=== PATIENT | female | born 1945 | race Caucasian/White ===

== ENCOUNTER 2019-09-18 08:15 | Outpatient (CLI) | payer OTHER, SELFPAY ==
--- NOTE | ~2019-09-18 | MM_ITS ---
EXAMINATION: MM screening sharon BI w stanton HISTORY: Screening mammogram, family history of breast cancer in her mother. TECHNIQUE: Craniocaudal and mediolateral oblique 3-D tomosynthesis images were obtained and synthetic 2-D images were generated. CAD analysis was submitted and interpreted. COMPARISON: 09/13/2018, 09/10/2017, 09/08/2016 BREAST PARENCHYMAL COMPOSITION: The breasts are almost entirely fatty. FINDINGS: Again seen is a stable 3 mm mass in the central left breast. There is no evidence of suspic ious mass, calcification, or architectural distortion to suggest malignancy in either breast. There h as been no suspicious interval change. IMPRESSION: 1. No mammographic evidence of malignancy. 2. Recommend routine screening mammography in one year. BI-RADS Category 2: Benign finding(s). Reviewed, dictated and finalized at location A.
== END 2019-09-18 08:16 | disposition home or self-care (01) ==
PROVIDERS: PCP Family Medicine; Visit Provider Obstetrics & Gynecology
DX: Z12.31 Encounter for screening mammogram for malignant neoplasm of breast (principal)
CPT/HCPCS: 77063; 77067

== ENCOUNTER 2019-09-28 15:27 | Emergency (ER) | payer OTHER, SELFPAY ==
[2019-09-28 15:43] VITALS: BP 147/72; PULSE 87; RESP 16; TEMP 37.2; O2SAT 99
--- NOTE | 2019-09-28 15:52 | ED.GENADULT ---
HPI - General Adult General Chief complaint: Ear Stated complaint: ear pain Time Seen by Provider: 09/28/19 15:52 Source: patient and RN notes reviewed Mode of arrival: ambulatory Limitations: no limitations History of Present Illness HPI narrative: 74-year-old female presents with complaints of left intermittent otalgia for the past 5 days. Lizett says she was seen by the COUNSELING CENTER DIRECTOR at her PMD office and started on Flonase with no relief. Tylenol last 1 day ago with some relief. Pain increased over the last 24 hours. Denies getting water into ear to her knowledge. Denies trouble hearing. Denies injury to ear. Denies URI symptoms. No high fevers or chills. No nasal drainage and congestion. Denies nausea, vomiting, tinnitus, and dizziness. Denies headaches, weakness, fatigue, myalgia, or facial swelling. Denies chest pain or dyspnea. Denies cough, rhinorrhea, sore throat, nausea, and diarrhea. Tolerating po intake well. Denies recent traveling. Denies concerns for COVID-19 or exposures been home since [id number] order except for essential household needs and return home. Some parts of this dictation were generated by voice recognition software and may contain typographical and/or grammatical inaccuracies. Related Data Home Medications Medication Instructions Recorded Confirmed alendronate PO 09/28/19 celecoxib mg 09/28/19 docusate sodium PO 09/28/19 fluticasone propionate INTRANASAL 09/28/19 gabapentin 09/28/19 losartan 09/28/19 metformin mg 09/28/19 montelukast mg 09/28/19 pantoprazole PO 09/28/19 raloxifene mg 09/28/19 simvastatin mg 09/28/19 Allergies Allergy/AdvReac Type Severity Reaction Status Date / Time STEVEN Inhibitors Allergy Intermediate UNKNOWN Verified 05/16/19 09:26 lisinopril Allergy Unknown UNKNOWN Verified 05/16/19 09:26 Review of Systems Review of Systems: Narrative: CONSTITUTIONAL: Denies fever, chills, sweats. EYES: Denies visual changes, redness, discharge. ENT: Denies rhinorrhea, congestion, sore throat, ear drainage or itching. Complains of LT otalgia. CARDIOVASCULAR: Denies chest pain, palpitations, edema. RESPIRATORY: Denies dyspnea, wheezing, cough. GASTROINTESTINAL: Denies abdominal pain, nausea, vomiting, diarrhea. GENITOURINARY: Denies dysuria, hematuria, abnormal discharge. SKIN: Denies rash or itching. MUSCULOSKELETAL: Denies acute back pain, joint pain, or myalgia. NEUROLOGIC: Denies numbness or focal weakness. PSYCHIATRIC: Denies anxiety or depression. All systems reviewed & are unremarkable except as noted in HPI and below. [facility] Past Medical History Medical History (Updated 09/29/19 @ 00:00 by Jazzy Caba) Ankle fracture, right Carpal tunnel syndrome Diabetes Ganglion History of gastroesophageal reflux (GERD) Hypercholesteremia Hypertension Osteoporosis Surgical History Surgical History (Updated 09/28/19 @ 16:07 by ALEXANDRE Gamez) History of carpal tunnel surgery Right wrist History of hip surgery Left History of surgical removal of ganglion cyst Right thumb and Left wrist Family History Family History Father Family history of Parkinson's disease Diabetes mellitus, Onset Age: 92 Mother Family history of Alzheimer's disease Family history of malignant neoplasm of breast in first degree relative Patient's mother is Other Family history of arthritis Family history of gout Social History Social History (Updated 09/28/19 @ 16:07 by ALEXANDRE Gamez) Smoking status: Current every day smoker Tobacco type: cigarettes Second hand tobacco smoke exposure: No Smoking end date: 05/28/18 Alcohol intake: current Alcohol use details: occasional Substance use: never Living arrangements: with family Occupation/Education: retired Gender identity (if verbalized by the patient): Female Comments At time of signature, I have revi
== END 2019-09-28 16:15 | disposition home or self-care (01) ==
PROVIDERS: Emergency Provider Nurse Practitioner Family; PCP Family Medicine
DX: H92.02 Otalgia, left ear (principal); E11.9 Type 2 diabetes mellitus without complications; K21.9 Gastro-esophageal reflux disease without esophagitis; E78.00 Pure hypercholesterolemia, unspecified; I10 Essential (primary) hypertension; M81.0 Age-related osteoporosis without current pathological fracture; F17.210 Nicotine dependence, cigarettes, uncomplicated; Z79.84 Long term (current) use of oral hypoglycemic drugs
CPT/HCPCS: 99213; G0463

== ENCOUNTER 2020-05-26 09:22 | Outpatient (CLI) | payer OTHER, SELFPAY ==
--- NOTE | ~2020-05-26 | CT_ITS ---
EXAMINATION: CT abdomen pelvis wo con EXAM DATE: 05/26/2020 09:44 INDICATION: Epigastric abdominal pain, symptoms 2 weeks. TECHNIQUE: Spiral CT of the abdomen and pelvis was performed without contrast. Axial, coronal and s agittal images were reviewed. The dose-length product (DLP) for this examination was 765.86 mGy-cm. The exposure was tailored according to patient size (auto mA exposure control), and iterative recons truction (ASIR) was used as additional dose reduction technique. Comparison is made to prior examinat ion from 10/07/2016. FINDINGS: The liver, spleen, adrenal glands and pancreas are unremarkable. There are cholecystectomy clips. There is no nephrolithiasis or hydronephrosis. The uterus is unremarkable. The bladder i s unremarkable. There is no retroperitoneal or pelvic lymphadenopathy. There is mild scattered art eriosclerotic disease. The appendix is normal. The stomach and small bowel are unremarkable. There is expected amount of c olonic stool. No free intraperitoneal gas. The heart is normal in size. There are no pericardial or pleural effusions. The lung bases are unremarkable. Mild to moderate chronic appearing compress ion fracture superior endplate of L2. There is left hip arthroplasty. IMPRESSION: 1. No acute intra-abdominal findings. Reviewed, dictated and finalized at location B. 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
== END 2020-05-26 09:23 | disposition home or self-care (01) ==
PROVIDERS: PCP Family Medicine; Visit Provider Physician Assistant
DX: R10.13 Epigastric pain (principal)
CPT/HCPCS: 74176

== ENCOUNTER 2020-06-11 10:42 | Emergency (ER) | payer OTHER, SELFPAY ==
--- NOTE | 2020-06-11 10:57 | ED.FEMALEGU ---
HPI - Female Genitourinary General Chief complaint: Urogenital-Female Stated complaint: Possible UTI Time Seen by Provider: 06/11/20 11:00 Source: patient Mode of arrival: ambulatory Limitations: no limitations History of Present Illness HPI Narrative: Lizett Mixon is a 75 yo male with a PMH of GERD, HTN, seasonal allergies, T2DM, high cholesterol, osteoporosis, history of having symptoms of urinary tract infection on Sunday with pressure and the following day with dysuria and difficulty urinating she tried OTC Azo without success; unable to reach primary care doctor, is not having pain per se but annoying symptoms now for third day Discussed her list of prior medical conditions Related Data Home Medications Medication Instructions Recorded Confirmed Jose A-600 With Vitamin D 1 mg PO BID 06/11/20 06/11/20 Tumeric 06/11/20 alendronate PO 06/11/20 cyanocobalamin (vitamin B-12) 500 mcg PO DAILY 06/11/20 06/11/20 famotidine [Pepcid AC] 20 mg PO DAILY 06/11/20 06/11/20 gabapentin 300 mg PO TID 06/11/20 06/11/20 loratadine [Claritin] 10 mg PO DAILY 06/11/20 06/11/20 losartan 50 mg PO DAILY 06/11/20 06/11/20 metformin 500 mg PO DAILY 06/11/20 06/11/20 montelukast 10 mg PO DAILY 06/11/20 06/11/20 omega-3 fatty acids [Fish Oil] 1,000 mg PO BID 06/11/20 06/11/20 omeprazole 40 mg PO DAILY 06/11/20 06/11/20 raloxifene 60 mg PO DAILY 06/11/20 06/11/20 simvastatin 20 mg PO HS 06/11/20 06/11/20 vitamins A,C,X-zlxm-lmtuvs 1 cap PO DAILY 06/11/20 06/11/20 [PreserVision AREDS] Allergies Allergy/AdvReac Type Severity Reaction Status Date / Time STEVEN Inhibitors Allergy Intermediate UNKNOWN Verified 06/11/20 10:43 lisinopril Allergy Unknown UNKNOWN Verified 06/11/20 10:43 Review of Systems Review of Systems: Narrative: CONSTITUTIONAL: Denies fever, chills, sweats. EYES: Denies visual changes, redness, discharge. ENT: Denies rhinorrhea, congestion, sore throat, otalgia. CARDIOVASCULAR: Denies chest pain, palpitations, edema. RESPIRATORY: Denies dyspnea, wheezing, cough GASTROINTESTINAL: Denies abdominal pain, nausea, vomiting, diarrhea. GENITOURINARY: Has dysuria, hematuria, no abnormal discharge (took azo) SKIN: Denies rash or itching. NEUROLOGIC: Denies numbness, or focal weakness. PSYCHIATRIC: Denies anxiety or depression. [facility] Past Medical History Medical History (Updated 06/11/20 @ 11:17 by Nara Culp CNP) Ankle fracture, right Carpal tunnel syndrome Diabetes Ganglion History of gastroesophageal reflux (GERD) Hypercholesteremia Hypertension Osteoporosis Surgical History Surgical History History of carpal tunnel surgery Right wrist History of hip surgery Left History of surgical removal of ganglion cyst Right thumb and Left wrist Family History Family History Father Family history of Parkinson's disease Diabetes mellitus, Onset Age: 92 Mother Family history of Alzheimer's disease Family history of malignant neoplasm of breast in first degree relative Patient's mother is Other Family history of arthritis Family history of gout Social History Social History (Updated 06/11/20 @ 11:14 by Nara Culp CNP) Smoking packs per day: 0.25 Smoking cigarettes per day: 5.0 Smoking status: Current every day smoker Tobacco type: cigarettes Second hand tobacco smoke exposure: No Smoking end date: 05/28/18 Alcohol intake: current Substance use: never Gender identity (if verbalized by the patient): Female Comments At time of signature, I agree with nursing past medical, surgical, social and family history. There is no relevant family history pertinent to the presenting complaint. Exam Narrative: Exam Narrative: GENERAL: This is a well-nourished, well-developed patient, in mild distress. HEAD: normocephalic, atraumatic. EYES: P Sclera clear/white. [employer]
[2020-06-11 10:58] VITALS: BP 156/61; PULSE 99; RESP 18; TEMP 36.7; O2SAT 94
== END 2020-06-11 11:20 | disposition home or self-care (01) ==
PROVIDERS: Emergency Provider Nurse Practitioner; PCP Physician Assistant
DX: N30.01 Acute cystitis with hematuria (principal); F17.210 Nicotine dependence, cigarettes, uncomplicated; E11.9 Type 2 diabetes mellitus without complications; K21.9 Gastro-esophageal reflux disease without esophagitis; E78.00 Pure hypercholesterolemia, unspecified; I10 Essential (primary) hypertension; M81.0 Age-related osteoporosis without current pathological fracture
CPT/HCPCS: 81003; 87077; 87086; 87088; 87186; 99213; G0463

== ENCOUNTER 2020-09-21 09:03 | Outpatient (CLI) | payer OTHER, SELFPAY ==
--- NOTE | ~2020-09-21 | MM_ITS ---
EXAMINATION: MM screening sharon BI w stanton HISTORY: Screening mammogram TECHNIQUE: Craniocaudal and mediolateral oblique 3-D tomosynthesis images were obtained and synthetic 2-D images were generated. CAD analysis was submitted and interpreted. COMPARISON: , 09/13/2018, 09/10/2017 bilateral digital screening mammogram examinations BREAST PARENCHYMAL COMPOSITION: The breasts are almost entirely fatty. FINDINGS: Stable benign appearing circumscribed approximately 5 mm mass is noted at the posterior mar gin of the mid to upper right breast on MLO view, unchanged since 09/08/2016. There is no evidence of suspicious mass, calcification, or architectural distortion to suggest malignancy in either breast. T here has been no suspicious interval change. IMPRESSION: 1. No mammographic evidence of malignancy. 2. Recommend routine screening mammography in one year. BI-RADS Category 2: Benign finding(s). Reviewed, dictated and finalized at location A.
== END 2020-09-21 09:04 | disposition home or self-care (01) ==
LOC: ANHIMG 09:09
PROVIDERS: PCP Physician Assistant; Visit Provider Obstetrics & Gynecology
DX: Z12.31 Encounter for screening mammogram for malignant neoplasm of breast (principal)
CPT/HCPCS: 77063; 77067

== ENCOUNTER 2020-09-28 07:31 | Emergency (ER) | payer OTHER, SELFPAY ==
--- NOTE | ~2020-09-28 | XR_ITS ---
EXAMINATION: XR wrist RT min 3V INDICATION: Right wrist pain TECHNIQUE: Four views of the right wrist are obtained. COMPARISON: 08/28/2017 FINDINGS: There is moderate to severe osteoarthritis of the triscaphe and first carpometacarpal joint s. No fracture is identified. The soft tissues are unremarkable. IMPRESSION: 1. Osteoarthritis without acute osseous abnormality identified. Reviewed, dictated and finalized at location A.
[2020-09-28 07:51] VITALS: BP 152/69; PULSE 77; RESP 18; TEMP 37.1; O2SAT 96
[2020-09-28] MEDS: HYDROcodone/acetaminophen (*CRX) 5-325 MG TABLET 1 TAB PO (07:58)
--- NOTE | 2020-09-28 08:12 | ED.GENADULT ---
HPI - General Adult General Chief complaint: Extremity Problem,Nontraumatic Stated complaint: wrist inj Time Seen by Provider: 09/28/20 07:38 History of Present Illness HPI narrative: Patient is a 75-year-old female who presents ER with right wrist pain. Patient was reaching behind her back to move a ice pack when she had sudden onset pain over the radial aspect of her wrist on the volar aspect. Pain radiates into the mid forearm. No numbness or tingling. Pain increases with attempts to flex and extend at the wrist. Related Data Home Medications Medication Instructions Recorded Confirmed Jose A-600 With Vitamin D 1 mg PO BID 06/11/20 06/11/20 Tumeric 06/11/20 alendronate PO 06/11/20 cyanocobalamin (vitamin B-12) 500 mcg PO DAILY 06/11/20 06/11/20 famotidine [Pepcid AC] 20 mg PO DAILY 06/11/20 06/11/20 gabapentin 300 mg PO TID 06/11/20 06/11/20 loratadine [Claritin] 10 mg PO DAILY 06/11/20 06/11/20 losartan 50 mg PO DAILY 06/11/20 06/11/20 metformin 500 mg PO DAILY 06/11/20 06/11/20 montelukast 10 mg PO DAILY 06/11/20 06/11/20 omega-3 fatty acids [Fish Oil] 1,000 mg PO BID 06/11/20 06/11/20 omeprazole 40 mg PO DAILY 06/11/20 06/11/20 raloxifene 60 mg PO DAILY 06/11/20 06/11/20 simvastatin 20 mg PO HS 06/11/20 06/11/20 vitamins A,C,G-rvww-mqcudn 1 cap PO DAILY 06/11/20 06/11/20 [PreserVision AREDS] Allergies Allergy/AdvReac Type Severity Reaction Status Date / Time STEVEN Inhibitors Allergy Intermediate UNKNOWN Verified 09/28/20 07:54 lisinopril Allergy Unknown UNKNOWN Verified 09/28/20 07:54 Review of Systems Musculoskeletal: Musculoskeletal: Reports arthralgias, Denies joint swelling and Denies muscle cramps Integumentary/Breasts: Skin/Breast: Denies erythema and Denies rash Neurologic: Denies focal weakness and Denies numbness [facility] Past Medical History Medical History (Updated 09/28/20 @ 09:27 by Gustabo Flynn MD) Ankle fracture, right Carpal tunnel syndrome Diabetes Ganglion History of gastroesophageal reflux (GERD) Hypercholesteremia Hypertension Osteoporosis Surgical History Surgical History History of carpal tunnel surgery Right wrist History of hip surgery Left History of surgical removal of ganglion cyst Right thumb and Left wrist Family History Family History Father Family history of Parkinson's disease Diabetes mellitus, Onset Age: 92 Mother Family history of Alzheimer's disease Family history of malignant neoplasm of breast in first degree relative Patient's mother is Other Family history of arthritis Family history of gout Social History Social History (Updated 06/11/20 @ 11:14 by Nara Culp CNP) Smoking packs per day: 0.25 Smoking cigarettes per day: 5.0 Smoking status: Current every day smoker Tobacco type: cigarettes Second hand tobacco smoke exposure: No Smoking end date: 05/28/18 Alcohol intake: current Substance use: never Gender identity (if verbalized by the patient): Female Exam Narrative: Exam Narrative: GENERAL: Well-appearing, well-nourished, and in no acute distress. HEAD: Normocephalic, atraumatic. CHEST: Clear to auscultation. No respiratory distress. HEART: Regular rate and rhythm. Normal peripheral pulses. EXTREMITIES: Focused exam of the right hand and wrist reveals tenderness at the wrist and base of the thenar eminence. Slight swelling noted. No bruising or redness. Limited range of motion with flexion extension due to pain. No reproducible pain into the forearm and loss palpating the tender area at the base of the thumb. NEURO: Alert and oriented x3. PSYCH: Normal mood and affect. Course Vital Signs Vital signs: Vital Signs Temperature 98.7 F 09/28/20 07:51 Pulse Rate 77 09/28/20 07:51 Respiratory Rate 18 09/28/20 07:51 Blood Pressure 152/69 H 09/28/20 07:51 Pulse Oximet
--- NOTE | 2020-09-28 09:05 | PC.NURSE ---
R wrist splint placed, pt educated to place ice over splint prn, keep extremity mobile. ED MD at bedside to provide dispo
[2020-09-28 09:33] VITALS: BP 127/63; PULSE 77; RESP 17; O2SAT 98
== END 2020-09-28 09:36 | disposition home or self-care (01) ==
PROVIDERS: Emergency Provider Emergency Medicine; PCP Physician Assistant
DX: S63.501A Unspecified sprain of right wrist, initial encounter (principal); Z87.891 Personal history of nicotine dependence; E11.9 Type 2 diabetes mellitus without complications; Z79.84 Long term (current) use of oral hypoglycemic drugs; K21.9 Gastro-esophageal reflux disease without esophagitis; I10 Essential (primary) hypertension; E78.5 Hyperlipidemia, unspecified; X50.0XXA Overexertion from strenuous movement or load, initial encounter
CPT/HCPCS: 73110; 99283; A9270

== ENCOUNTER 2020-12-03 12:34 | Emergency (ER) | payer OTHER, SELFPAY ==
--- NOTE | 2020-12-03 12:39 | ED.SKABFB ---
HPI - Skin/Abscess/Foreign Bdy General Chief complaint: Skin/Abscess/Foreign Body Stated complaint: RASH Time Seen by Provider: 12/03/20 12:48 Source: patient and RN notes reviewed Mode of arrival: ambulatory Limitations: no limitations History of Present Illness HPI narrative: 75-year-old female presents concern for patchy rash on her left anterior shoulder. Reports 2-day history of rash. Reports she has been using triamcinolone and clobetasol cream 2 times with intermittent relief of itching. She denies any resolution of the rash with the use of the cream. She reports she has had intermittent rashes similar to this over the last several months. She denies any known triggers such as new soaps, personal care products, household products, medicines, foods. Denies exposure to plants, landscaping, poison richard. She denies swollen lips, swollen tongue, trouble breathing, nausea, vomiting, diarrhea. MD complaint: rash Related Data Home Medications Medication Instructions Recorded Confirmed Jose A-600 With Vitamin D 1 mg PO BID 06/11/20 12/03/20 Tumeric 1,000 mg PO BID 06/11/20 12/03/20 alendronate 10 mg PO WEEKLY 06/11/20 12/03/20 famotidine [Pepcid AC] 20 mg PO DAILY 06/11/20 12/03/20 gabapentin 300 mg PO TID 06/11/20 12/03/20 loratadine [Claritin] 10 mg PO DAILY 06/11/20 12/03/20 losartan 50 mg PO DAILY 06/11/20 12/03/20 metformin 250 mg PO DAILY 06/11/20 12/03/20 montelukast 10 mg PO DAILY 06/11/20 12/03/20 omega-3 fatty acids [Fish Oil] 1,000 mg PO BID 06/11/20 12/03/20 omeprazole 40 mg PO BID 06/11/20 12/03/20 raloxifene 60 mg PO DAILY 06/11/20 12/03/20 simvastatin 20 mg PO HS 06/11/20 12/03/20 vitamins A,C,Q-luhh-skrvhr 1 cap PO BID 06/11/20 12/03/20 [PreserVision AREDS] nystatin-triamcinolone 1 applic TOPICAL BID 12/03/20 12/03/20 vitamin B complex [Super B Complex] 1 tablet PO DAILY 12/03/20 12/03/20 Allergies Allergy/AdvReac Type Severity Reaction Status Date / Time STEVEN Inhibitors Allergy Intermediate Hives Verified 12/03/20 12:48 lisinopril Allergy Unknown Hives Verified 12/03/20 12:48 Review of Systems Review of Systems: Narrative: CONSTITUTIONAL: Denies malaise, chills, sweats, or fever. EYES: Denies visual changes, redness, or discharge. ENT: Denies swollen lips, swollen tongue CARDIOVASCULAR: Denies chest pain, palpitations, or edema. RESPIRATORY: Denies cough or dyspnea. GASTROINTESTINAL: Denies nausea, vomiting, diarrhea SKIN: Reports itchy rash on the left anterior shoulder MUSCULOSKELETAL: Denies myalgia. All systems reviewed & are unremarkable except as noted in HPI and below PMFSH Past Medical History Medical History (Updated 12/03/20 @ 12:57 by Sherrill Salcido NP) Ankle fracture, right Carpal tunnel syndrome Diabetes Ganglion History of gastroesophageal reflux (GERD) Hypercholesteremia Hypertension Osteoporosis Surgical History Surgical History History of carpal tunnel surgery Right wrist History of hip surgery Left History of surgical removal of ganglion cyst Right thumb and Left wrist Family History Family History Father Family history of Parkinson's disease Diabetes mellitus, Onset Age: 92 Mother Family history of Alzheimer's disease Family history of malignant neoplasm of breast in first degree relative Patient's mother is Other Family history of arthritis Family history of gout Social History Social History (Updated 06/11/20 @ 11:14 by Nara Culp CNP) Smoking packs per day: 0.25 Smoking cigarettes per day: 5.0 Smoking status: Current every day smoker Tobacco type: cigarettes Second hand tobacco smoke exposure: No Smoking end date: 05/28/18 Alcohol intake: current Alcohol use details: occasional Substance use: never Gender identity (if verbalized by the patient): Female Comments At time of signature, agree with
[2020-12-03 12:41] VITALS: BP 136/64; PULSE 82; RESP 16; TEMP 36.5; O2SAT 98
== END 2020-12-03 13:02 | disposition home or self-care (01) ==
PROVIDERS: Emergency Provider Nurse Practitioner
DX: L25.9 Unspecified contact dermatitis, unspecified cause (principal); F17.210 Nicotine dependence, cigarettes, uncomplicated; E11.9 Type 2 diabetes mellitus without complications; K21.9 Gastro-esophageal reflux disease without esophagitis; E78.00 Pure hypercholesterolemia, unspecified; I10 Essential (primary) hypertension; M81.0 Age-related osteoporosis without current pathological fracture
CPT/HCPCS: 99213; G0463

== ENCOUNTER → 2021-01-05 14:14 | Outpatient (CLI) | payer OTHER, SELFPAY ==
--- NOTE | ~2021-01-05 | XR_ITS ---
EXAMINATION: XR sacrum coccyx min 2V INDICATION: Chronic right hip and groin pain TECHNIQUE: Three views of the sacrum and coccyx are obtained. COMPARISON: 03/27/2019 FINDINGS: There is advanced osteoarthritis of the right hip. No fracture is identified. Changes of to carolin left hip arthroplasty are noted. Calcified atherosclerosis is noted. The soft tissues are unremar kable. IMPRESSION: 1. Advanced osteoarthritis of the right hip. Reviewed, dictated and finalized at location B.
--- NOTE | ~2021-01-05 | XR_ITS ---
EXAMINATION: XR hip RT min 2V DATE: 01/05/2021 14:46 INDICATION: Chronic right hip pain TECHNIQUE: Anteroposterior, frog leg, and cross-table lateral views of right hip were obtained. COMPARISON: 03/27/2019 FINDINGS: There is advanced osteoarthritis of the right hip. No fracture is identified. The soft tiss ues are unremarkable. IMPRESSION: 1. Advanced osteoarthritis of the right hip without acute osseous abnormality. Reviewed, dictated and finalized at location B.
== END ==
PROVIDERS: PCP Physician Assistant; Visit Provider Physician Assistant
DX: R10.31 Right lower quadrant pain (principal); G89.29 Other chronic pain; M16.11 Unilateral primary osteoarthritis, right hip
CPT/HCPCS: 72220; 73502

== ENCOUNTER 2021-04-29 11:57 | Outpatient (CLI) | payer OTHER, SELFPAY ==
--- NOTE | 2021-04-29 12:46 | ECG_ITS ---
Measurements Intervals [place] Rate: 72 P: 75 DE: 155 QRS: 9 QRSD: 88 T: 68 QT: 363 QTc: 400 Interpretive Statements SINUS RHYTHM BORDERLINE R WAVE PROGRESSION, ANTERIOR LEADS BASELINE ARTIFACT- I, II, III, AVR, AVL, AVF, V2, V4 BORDERLINE ECG Electronically Signed On 04-29-2021 13:18:11 MEDICAL SERVICES ASSISTANT by Hunter Contreras D.O.
[2021-04-29 13:12] LABS: Basophils Absolute Auto 0.1 K/mm3 (0.0-0.1); Basophils Percent Auto 0.7 % (0.2-1.2); Eosinophils Absolute Auto 0.2 K/mm3 (0-0.3); Eosinophils Percent Auto 1.9 % (0-4.4); Hematocrit 39.1 % (37.0-47.0); Hemoglobin 12.8 g/dL (12.0-15.0); Immature Granulocyte Absolute 0.13 K/mm3 (0.00-0.031); Lymphocytes Absolute Auto 3.21 K/mm3 (0.9-3.2); Lymphocytes Percent Auto 25.9 % (18.3-44.2); Mean Corpuscular HGB Conc 32.7 g/dl (32-36); Mean Corpuscular Hemoglobin 29.6 pg (26-34); Mean Corpuscular Volume 90.3 fl (80-100); Mean Platelet Volume 9.9 fl (7.4-10.4); Monocytes Absolute Auto 0.9 K/mm3 (0.1-0.6); Monocytes Percent Auto 7.4 % (2.6-8.5); Neutrophils Absolute Auto 7.8 K/mm3 (1.3-6.7); Neutrophils Percent Auto 63.1 % (45.5-73.1); Platelet Count Result 234 k/mm3 (150-375); Red Blood Count 4.33 M/mm3 (4.2-5.4); Red Cell Distribution Width 16.4 % (11.5-14.5); White Blood Count 12.4 K/mm3 (4.5-10.0)
[2021-04-29 13:17] LABS: Add Urine Microscopic? YES; Appearance Urine Cloudy (Clear); Bilirubin Urine Negative (Negative); Blood Urine Negative (Negative); Color Urine Yellow (Yellow); Glucose Urine UA Negative (Negative); Ketones Urine Negative (Negative); Leukocyte Esterase Ur Negative LEU/UL (Negative); Nitrate Urine Negative (Negative); Protein Urine Negative (Negative); Squamous Epithelial Cell Urine Rare /hpf (Few); Urobilinogen Urine Negative mg/dL (<2.0); WBC Urine 0-3 /hpf
[2021-04-29 13:21] LABS: INR 0.9; Prothrombin Time 11.9 Seconds (11.1-14.7)
[2021-04-29 13:22] LABS: Partial Thromboplastin Time 25.8 SECONDS (22.3-36.8)
[2021-04-29 13:24] LABS: Albumin Level 4.3 g/dL (3.5-5.1); Anion Gap 9 mmol/L (8-16); Blood Urea Nitrogen 11 mg/dL (7-17); Calcium 9.3 mg/dL (8.4-10.2); Carbon Dioxide 29 mmol/L (22-30); Chloride 101 mmol/L (98-107); Estimated Glomerular Filt Rate > 60; Glucose 92 mg/dL (65-110); Sodium 139 mmol/L (137-145)
[2021-04-29 13:29] LABS: Urine Cotinine NEGATIVE
[2021-04-29 13:32] LABS: Hemoglobin A1C 5.7 % (<5.7)
== END 2021-04-29 11:58 | disposition home or self-care (01) ==
LOC: ANHSURGERY 12:00
PROVIDERS: PCP Physician Assistant; Visit Provider Orthopaedic Surgery
DX: Z01.818 Encounter for other preprocedural examination (principal); M16.9 Osteoarthritis of hip, unspecified; Z51.81 Encounter for therapeutic drug level monitoring; Z79.899 Other long term (current) drug therapy
CPT/HCPCS: 80048; 80307; 81001; 82040; 83036; 85025; 85610; 85730; 86850; 86900; 86901; 87081; 93005

== ENCOUNTER 2021-05-10 00:02 | Day surgery (SDC) | payer OTHER, SELFPAY ==
[2021-04-29 12:22] VITALS: BP 146/74; PULSE 82; RESP 18; TEMP 36.8; O2SAT 96; BMI 29.8
--- NOTE | 2021-04-29 12:30 | PC.NURSE ---
Addendum entered by Debbie Castelan RN 04/29/21 12:38: PT INSTRUCTED TO TAKE DULOXITINE AND GABAPENTIN AM OF SURGERY - UNDERSTANDING VOICED Original Note: Report to the Outpatient Waiting Room, entrance under the green pavilion located off [facility], at time _0600__ on date _05/10/21_. OR Time: _0730 AM_. - You and your visitor will be asked a series of questions to screen for COVID 19 for your protection. - A mask is required within the hospital. - Only one visitor is allowed at this time. Patient visitors will be guided where to wait when not with patient. Preoperative COVID Testing Requirements: No COVID Test needed if: (proof is required; if not received patient will have Rapid Test prior to entry) - Patient has received COVID Vaccine at least 14 days prior to procedure date or - Patient has positive COVID test result within last 90 days of surgery date. COVID Test needed if above criteria is not met If not COVID vaccinated a COVID test must be conducted within 72 hours of surgery and patient is asked to isolate self from time of testing until procedure. You will go to the [facility] for your COVID testing. The [facility] is located at the corner of [address] [facility]. You will only be called if COVID results are positive and your surgeon may reschedule your elective surgery date. Patients may have clear liquids (water, carbonated beverages, clear teas, apple juice) until 3 hours prior to surgery (0430 AM) with a maximum of 20 ounces. - No food from midnight until time of surgery - Infants may have breast milk until 4 hours before surgery, formula 6 hours prior to surgery. - Children will be allowed to drink immediately following surgery. If applicable, please bring a bottle or sippy cup to assist with drinking. Juice, water, soda, and popsicles are readily available. For infants on formula, please bring formula the day of surgery. Pacifiers are allowed. Take the following medications with a SIP of water the morning of surgery: ___ Medications to discontinue per physician _ALL VITAMINS & SUPPLEMENTS - 3 DAYS PRIOR TO SURGERY PER ANESTHESIA Date to take last dose__12/10/21 Please no make-up, nail monegasque, hairspray, perfume, deodorant, or body powder the day of surgery. No jewelry (including any body piercings) or valuables the day of surgery, leave them at home. Please take a shower or bath the night before, or the morning of, surgery with an antibacterial soap. Wear comfortable, loose fitting clothing. Children are encouraged to wear pajamas. - Jewelry must be removed prior to entering the operating room. Rings and piercings that are not removed may be cut off. - The hospital will not accept responsibility for valuables. - Please leave all valuables, including medications, at home the day of surgery. If you are going home after surgery, a licensed bus driver/monitor must drive you home. - NO public transportation without another adult. - We recommend that an adult stay with you for 24 hours following discharge. - We also recommend that you do not drive, make important decision, drink alcoholic beverages, or take any drugs that were not prescribed by your health care provider for at least 24 hours after your discharge time. For Pediatric surgeries, we recommend two adults accompany the child home (only one inside the building at this time). Follow any additional instructions given to you from your surgeon. RUFINA SCRUB DIRECTED Telephone instructions given to PT and asked if any additional questions and then verbalized understanding. Patient advised to call surgeon office or pre surgery nurse liaison [phone] if any additional questions.
[2021-05-10] VITALS (12 sets, daily range): BP systolic 88–156; BP diastolic 34–72; PULSE 74–96; RESP 12–18; TEMP 36.2–36.9; O2SAT 91–100
--- NOTE | ~2021-05-10 | XR_ITS ---
EXAMINATION: XR hip RT 1V DATE: 05/10/2021 10:12 INDICATION: Right hip arthroplasty. Postop. TECHNIQUE: A single view of right hip was obtained. COMPARISON: None. FINDINGS: There is a total right hip arthroplasty in near-anatomic alignment. No fracture. There is g as in the soft tissues, consistent with recent surgery. Partially visualized is a total left hip arth roplasty with acetabular protrusio. IMPRESSION: 1. New total right hip arthroplasty in near-anatomic alignment. Reviewed, dictated and finalized at location A. T [facility]
[2021-05-10] MEDS: ACETAMINOPHEN 500 MG TABLET 1000 MG PO (06:40)
[2021-05-10] MEDS: LACTATED RINGERS 1,000 ML 30 ML IV CONT ×3 (06:43→10:41)
[2021-05-10] MEDS: TRANEXAMIC ACID 1,000MG/ISO100 1,000 MG/100 ML BAG 200 MG IVPB (06:47)
--- NOTE | 2021-05-10 06:47 | WPDANESEPPF ---
Anes - Initial Pre Proc Eval Procedure: Operation Date: 05/10/21 07:30 Proposed Procedures p Right Total Hip Arthroplasty - Aamir Fraser MD Date/Time: 05/10/21 06:47 Surgeon: Aamir Fraser MD Pre Op Diagnosis: right hip DJD Patient Data Age: 76 Gender: F Height: 1.56 m Weight: 72.8 kg Last Vital Signs Temp 36.8 C 04/29/21 12:22 Pulse 82 04/29/21 12:22 Resp 18 04/29/21 12:22 BP 146/74 H 04/29/21 12:22 Pulse Ox 96 04/29/21 12:22 Allergies Allergy/AdvReac Type Severity Reaction Status Date / Time STEVEN Inhibitors Allergy Intermediate Hives Verified 05/10/21 06:23 lisinopril Allergy Unknown Hives / Unverified 05/10/21 06:23 Red Face Home Medications Medication Instructions Recorded Confirmed Type Jose A-600 With Vitamin D 1 tab-cap PO BID 06/11/20 05/10/21 History Tumeric 1,000 mg PO BID 06/11/20 05/10/21 History alendronate 10 mg PO WEEKLY 06/11/20 05/10/21 History famotidine [Pepcid AC] 20 mg PO DAILY 06/11/20 05/10/21 History gabapentin 300 mg PO TID 06/11/20 05/10/21 History loratadine [Claritin] 10 mg PO QAM 06/11/20 05/10/21 History losartan 50 mg PO QAM 06/11/20 05/10/21 History metformin 250 mg PO BID 06/11/20 05/10/21 History montelukast 10 mg PO HS 06/11/20 05/10/21 History omega-3 fatty acids [Fish Oil] 1,000 mg PO BID 06/11/20 05/10/21 History omeprazole 40 mg PO BID 06/11/20 05/10/21 History raloxifene 60 mg PO QAM 06/11/20 05/10/21 History simvastatin 20 mg PO HS 06/11/20 05/10/21 History vitamins A,C,S-ifpo-wygrrl 1 cap PO BID 06/11/20 05/10/21 History [PreserVision AREDS] vitamin B complex [Super B Complex] 1 tablet PO DAILY 12/03/20 05/10/21 History chlorhexidine gluconate 4 % 1 applic TOPICAL ONCE #237 ml 03/04/21 05/10/21 Rx topical liquid duloxetine 60 mg PO QAM 04/29/21 05/10/21 History duloxetine 40 mg capsule,delayed 40 mg PO BID 05/02/21 History release Patient hx anesthesia problems: none Family hx anesthesia problems: none Results Review: All pre-operative results and documents have been reviewed as part of the pre-operative evaluation. [facility] Past Medical History Medical History Ankle fracture, right Carpal tunnel syndrome Diabetes Diabetes Ganglion History of gastroesophageal reflux (GERD) Hypercholesteremia Hypertension Osteoporosis Surgical History Surgical History History of carpal tunnel surgery Right wrist History of hip surgery Left History of surgical removal of ganglion cyst Right thumb and Left wrist Family History Family History Father Family history of Parkinson's disease Diabetes mellitus, Onset Age: 92 Mother Family history of Alzheimer's disease Family history of malignant neoplasm of breast in first degree relative Patient's mother is Other Family history of arthritis Family history of gout Social History Social History Smoking packs per day: 0.25 Smoking cigarettes per day: 5.0 Smoking status: Former smoker Tobacco type: cigarettes Second hand tobacco smoke exposure: No Smoking end date: 05/28/18 Additional smoking assessment comments: STATES SMOKED OFF/ON SINCE AGE 16, 6-7 CIGS/DAY LAST CIGARETTE 02/2021 Alcohol intake: current Alcohol use details: occasional Substance use: never Substance use type: does not use Living arrangements: with family Additional living arrangements comments: SON LIVES WITH PT Gender identity (if verbalized by the patient): Female Spiritual care concerns: No Anes - Eval Final PreProcedure Day of Procedure 05/10/21 06:47 Patient weight: overweight Heart: regular rate and rhythm Lungs: clear to auscultation Airway: Mallampati scale class II Neurological: alert and oriented Last oral intake: >/= 8 lula
[2021-05-10 06:50] LABS: Glucose Point of Care 108 mg/dl (65-105)
--- NOTE | 2021-05-10 07:18 | WPDHPUPDATE1 ---
History and Physical Update Update Date/Time: 05/10/21 07:18 History and Physical has been reviewed, including an updated exam of the patient. There are NO changes in the patient's condition. Risks, benefits, and alternatives have been discussed and questions answered. Patient agrees to proceed with procedure.
[2021-05-10] MEDS: ceFAZolin 2 GM/D5W 50 ML 2 GM/50 ML BAG IVPB ×3 (07:28→23:15)
[2021-05-10] MEDS: TRANEXAMIC ACID 1,000 MG/10 ML AMPUL 1000 MG IV PUSH (09:15)
[2021-05-10 10:10] LABS: Glucose Point of Care 136 mg/dl (65-105)
--- NOTE | 2021-05-10 10:17 | W.PM.PROC2 ---
Procedure Note - Detailed Date of Procedure 05/10/21 Pre-op Diagnosis right hip DJD Post-op Diagnosis same Procedure Performed R MADAN Surgeon Aamir Fraser MD Anesthesia general Description of Procedure THE PATIENT WAS TAKEN TO THE OPERATING ROOM IN STABLE CONDITION AND WAS PLACED IN THE LATERAL DECUBITUS AND THE RIGHT LOWER EXTREMITY WAS PREPPED AND DRAPED IN THE STERILE FASHION. INCISION WAS MADE IN THE POSTERIOR LATERAL SIDE OF THE HIP, DOWN TO THE FASCIA LAYER. THE FASCIA WAS INCISED. THE HIP WAS EXPOSED. THE SHORT EXTERNAL ROTATORS WERE EXPOSED. THE SCIATIC NERVE WAS IDENTIFIED. INCISION WAS MADE THROUGH THE SORT EXTERNAL ROTATORS AND THE CAPSULE OF THE HIP JOINT. THE HIP WAS DISLOCATED. AN OSTEOTOMY WAS MADE TO THE FEMORAL NECK ABOUT 1 CM PROXIMAL TO THE LESSER TROCHANTER. THE ACETABULUM WAS EXPOSED. THERE WAS SEVERE DJD SEEN. BEGINNING WITH A 44 REAMER THE ACETABULUM WAS REAMED TO 49 MM. A 49 MM TRIAL WAS PLACED IN 35 DEG OF ABDUCTION AND ANTEVERSION WAS IN ALIGNMENT WITH THE TRANS ACETABULAR LIGAMENT. THE FIT WAS EXCELLENT. THE TRIAL WAS REMOVED. A 50 MM BIOMET G7 COMPONENT WAS THEN TAPPED IN TO PLACE IN 35 DEG OF ABDUCTION AND ANTEVERSION IN ALIGNMENT WITH THE TRANSVERSE ACETABULAR LIGAMENT. 2 SCREWS WERE PLACED FOR STABILIZATION . THE ACETABULAR LINER WAS PLACED AND CHECKED FOR STABILITY. NEXT THE FEMUR WAS PREPARED WITH INITIAL CANAL FINDER THEN SEQUENTIAL BROACHING WITH A TAPERLOC HIP SYSTEM, UNTIL A 10 BROACH FIT WELL IN 15 OF ANTEVERSION. A 0 HIGH OFFSET NECK WITH 36 MM HEAD TRIAL WAS PLACED. THE SHUCK TEST WAS EXCELLENT AND THE STABILITY IN FLEXION AND ROTATION WAS EXCELLENT. LEG LENGTHS WERE GROSSLY EQUAL. TRIALS WERE REMOVED. A BIOMET TAPERLOC 10 STEM WAS PLACED WITH A HIGH OFFSET NECK THE FIT WAS EXCELLENT IN 15 DEG OF ANTEVERSION. A 0 CERAMIC 36 MM FEMORAL HEAD WAS PLACED. THE HIP WAS TRIALED AND THE STABILITY WAS EXCELLENT WERE THE LEG LENGTHS AND THE SHUCK TEST. THE WOUND WAS IRRIGATED WITH STERILE BETADINE AND WATER FOR 3 MIN. THEN WASHED AGAIN. THE CAPSULE AND THE EXTERNAL ROTATORS WERE APPROXIMATED WITH NUMBER 1 VICRYL. THE FASCIA WITH No 2 QUIL AND THE SUB CUTANEOUS LAYER WITH 2-0 ABSORBABLE SUTURE WITH A RUNNING 3-0 SUBCUTICULAR LAYER WELL. DERMABOND WAS PLACED AND STERILE DRESSING WAS APPLIED. PATIENT WAS PLACED BACK ON TO THE SUPINE POSITION AND WAS EXTUBATED Estimated Blood Loss 200 Complications No immediate complications Condition stable Disposition PACU
--- NOTE | 2021-05-10 10:36 | SUR.PHASEI ---
Discussed lower BP with Dr Gu, ordered to give fluids.
[2021-05-10] MEDS: SODIUM CHLORIDE 0.9% IV 1,000 ML 125 ML IV CONT (12:00)
--- NOTE | 2021-05-10 13:00 | WPDCN ---
Assessment and Plan Assessment and plan (1) Degenerative joint disease of right hip: Code(s): M16.11 - Unilateral primary osteoarthritis, right hip Status: Acute Assessment and Plan: Postoperative day 0 status post right total hip arthroplasty. Wound care, pain control, and DVT prophylaxis will be deferred to primary service. Initiate fall precautions. PT/OT consulted. (2) Hyperlipidemia: Code(s): E78.5 - Hyperlipidemia, unspecified Status: Acute Assessment and Plan: Continue statin check LFTs in a.m. (3) Hypertension: Code(s): I10 - Essential (primary) hypertension Status: Chronic Assessment and Plan: Blood pressures have been running soft postoperatively. Start gentle IV fluid rehydration and check H and H this evening. Will hold her antihypertensives for now. (4) Type 2 diabetes mellitus: Code(s): E11.9 - Type 2 diabetes mellitus without complications Status: Acute Assessment and Plan: Resume metformin on discharge. Continue gabapentin for neuropathy symptoms. Initiate sliding scale insulin, Accu-Cheks, and hypoglycemic protocol. Check hemoglobin A1c. (5) Gastroesophageal reflux disease: Code(s): K21.9 - Gastro-esophageal reflux disease without esophagitis Status: Acute Assessment and Plan: No acute issues. Continue Pepcid. Additional Plan Thank you for allowing us to participate in this patient's care. Please do not hesitate to contact us with any questions. Supervising physician for this medical consultation is Dr. Nitin Johnson. HPI Data of Consult Date/Time: 05/10/21 13:00 Requesting Physician: Aamir Fraser MD Primary Care Provider: Arely Livingston, PA Consult Narrative Narrative: This is a 76-year-old female with degenerative joint disease, type 2 diabetes mellitus with peripheral neuropathy, hypertension, hyperlipidemia, and GERD whom the hospitalist service has been consulted for postoperative medical management. She has had longstanding pain in her right hip not amenable to conservative outpatient treatment and thus she elected for replacement today. Her surgery was performed under general anesthesia with no immediate complications documented an estimated blood loss of 200 mL. She is doing well postoperatively in her main complaint is that of a mild sore throat from intubation. She has minimal discomfort in the right hip which is exacerbated with movement. She was able to eat lunch without issue and she denies nausea and vomiting. She also denies fever, chills, and sweats. No paresthesias, skin color, or temperature changes distal to the surgical site. Review of Systems Review of Systems: Twelve systems were reviewed. No fever, chills, or sweats. No recent cold or flu symptoms. She denies sick contacts. No history of venous thromboembolism. She believes her diabetes is well controlled. No blurry vision, polydipsia, or polyuria. Except as documented, all other systems were reviewed and are negative. [facility] Past Medical History Medical History Carpal tunnel syndrome Clostridium difficile infection Gastroesophageal reflux disease History of benign breast biopsy Hyperlipidemia Hypertension Osteoporosis Spinal stenosis Squamous cell skin cancer Type 2 diabetes mellitus Surgical History Surgical History (Updated 05/10/21 @ 22:28 by Katya Tolbert PA-C) History of arthroplasty of right hip (05/10/21) History of carpal tunnel surgery of left wrist (03/2021) History of carpal tunnel surgery of right wrist (1998) History of colonoscopy with polypectomy History of laparoscopic cholecystectomy (1998) History of squamous cell carcinoma excision From the right forearm. History of surgical removal of ganglion cyst Right thumb and left w
[2021-05-10] MEDS: GABAPENTIN 300 MG CAPSULE PO ×2 (13:11→17:24)
[2021-05-10] MEDS: HYDROcodone/acetaminophen (*CRX) 7.5-325 MG TABLET 1 TAB PO ×3 (14:13→23:15)
[2021-05-10 15:04] LABS: Glucose Point of Care 125 mg/dl (65-105)
[2021-05-10] MEDS: metFORMIN HCL 250 MG TABLET PO (17:23)
[2021-05-10] MEDS: SENNA/DOCUSATE SODIUM TABLET 2 TAB PO (17:29)
[2021-05-10] MEDS: MONTELUKAST SODIUM 10 MG TABLET PO (20:58)
[2021-05-10] MEDS: SIMVASTATIN 20 MG TABLET PO (20:58)
[2021-05-10] MEDS: PANTOPRAZOLE 40 MG TABLET PO (20:58)
[2021-05-11] MEDS: HYDROcodone/acetaminophen (*CRX) 7.5-325 MG TABLET 1 TAB PO ×3 (02:30→09:36)
[2021-05-11 05:13] VITALS: BP 110/53; PULSE 95; RESP 16; TEMP 36.9; O2SAT 96
[2021-05-11 06:53] LABS: Basophils Absolute Auto 0.1 K/mm3 (0.0-0.1); Basophils Percent Auto 0.5 % (0.2-1.2); Eosinophils Absolute Auto 0.1 K/mm3 (0-0.3); Eosinophils Percent Auto 1.3 % (0-4.4); Hematocrit 26.1 % (37.0-47.0); Hemoglobin 8.3 g/dL (12.0-15.0); Immature Granulocyte Absolute 0.07 K/mm3 (0.00-0.031); Immature Granulocyte Percent A 0.6 % (0-0.5); Lymphocytes Absolute Auto 1.44 K/mm3 (0.9-3.2); Lymphocytes Percent Auto 13.1 % (18.3-44.2); Mean Corpuscular HGB Conc 31.8 g/dl (32-36); Mean Corpuscular Hemoglobin 28.8 pg (26-34); Mean Corpuscular Volume 90.6 fl (80-100); Mean Platelet Volume 9.9 fl (7.4-10.4); Monocytes Absolute Auto 0.8 K/mm3 (0.1-0.6); Monocytes Percent Auto 7.6 % (2.6-8.5); Neutrophils Absolute Auto 8.5 K/mm3 (1.3-6.7); Neutrophils Percent Auto 76.9 % (45.5-73.1); Platelet Count Result 158 k/mm3 (150-375); Red Blood Count 2.88 M/mm3 (4.2-5.4); Red Cell Distribution Width 16.5 % (11.5-14.5)
[2021-05-11] MEDS: ceFAZolin 2 GM/D5W 50 ML 2 GM/50 ML BAG IVPB (07:14)
[2021-05-11 07:20] LABS: Alanine Aminotransferase 23 U/L (4-35); Albumin Level 3.1 g/dL (3.5-5.1); Alkaline Phosphatase 39 U/L (38-126); Anion Gap 6 mmol/L (8-16); Aspartate Amino Transferase 44 U/L (14-36); Bilirubin,Total 0.6 mg/dL (0.2-1.3); Blood Urea Nitrogen 8 mg/dL (7-17); Carbon Dioxide 27 mmol/L (22-30); Chloride 97 mmol/L (98-107); Estimated CRCL calculation 61 ml/min; Estimated Glomerular Filt Rate > 60; Glucose 130 mg/dL (65-110); Magnesium 1.3 mg/dL (1.6-2.3); Potassium 3.8 mmol/L (3.4-5.0); Sodium 130 mmol/L (137-145)
--- NOTE | 2021-05-11 07:28 | PM.PNORT ---
Progress Note: A&P Additional Plan POD 1 DOING WELL. OK TO DC HOME F/U IN 3 WEEKS. Subjective Subjective Date/Time Seen: 05/11/21 07:28POD 1 DOING WELL. PAIN CONTROLLED. NO CALF PAIN Exam Extrem: Other: VSS AFEBRILE DRESSING DRY NV INTACT NEG HOMANS SIGN CALF SOFT Objective Data Vital Signs Vital Signs: Vital Signs - 24 hr 05/10/21 10:02 05/10/21 10:15 05/10/21 10:30 Temperature 36.9 C Pulse Rate 90 91 91 Respiratory Rate 12 16 12 Blood Pressure 105/57 L 106/49 L 92/45 L Pulse Oximetry 100 100 94 05/10/21 10:45 05/10/21 11:00 05/10/21 11:15 Temperature Pulse Rate 92 88 89 Respiratory Rate 13 13 12 Blood Pressure 92/34 L 88/42 L 97/43 L Pulse Oximetry 95 91 98 05/10/21 12:15 05/10/21 17:05 05/10/21 20:00 Temperature 36.2 C L Pulse Rate 74 95 Respiratory Rate 18 16 Blood Pressure 96/56 L Pulse Oximetry 98 98 96 05/10/21 20:15 05/10/21 21:13 05/11/21 05:13 Temperature 36.6 C 36.8 C 36.9 C Pulse Rate 86 96 95 Respiratory Rate 16 16 16 Blood Pressure 106/37 L 114/44 L 110/53 L Pulse Oximetry 97 94 96 Intake/Output Intake/Output: Intake & Output 05/08/21 05/09/21 05/10/21 05/11/21 23:59 23:59 23:59 23:59 Intake Total 1450 750 Balance 1450 750 Meds/Results Medications: Active Medications Generic Name Dose Route Start Last Admin Trade Name Freq PRN Reason Stop Dose Admin Acetaminophen 650 mg 05/10/21 11:28 Acetaminophen 325 Mg Tablet PO Q6H PRN Mild Pain (1-3) or Fever Hydrocodone Bitart/Acetaminophen 1 tab 05/10/21 11:28 05/11/21 05:45 Hydrocodone/Acetaminophen (*Crx) 7.5-325 Mg Tablet PO 1 tab Q3H PRN Administration Pain Rated 4-6 Alendronate Sodium 10 mg 05/14/21 06:30 Alendronate Sodium 10 Mg Tablet PO Sa@0630 [facility] Aspirin 650 mg 05/11/21 09:00 Aspirin 325 Mg Enteric Tablet PO DAILY CALE Calcium Carbonate 500 mg 05/10/21 17:00 05/10/21 17:24 Calcium/Vitamin D 500 Mg Tablet PO 500 mg BID CALE Administration Dextrose 12.5 gm 05/10/21 22:29 Dextrose 50% 25 Gm/50 Ml Syringe IV PUSH PRN PRN Hypoglycemia Protocol Diazepam 5 mg 05/10/21 11:28 Diazepam (*Crx) 5 Mg Tablet PO Q6H PRN Anxiety/Muscle Spasm Famotidine 20 mg 05/11/21 09:00 Famotidine 20 Mg Tablet PO DAILY CALE Gabapentin 300 mg 05/10/21 13:00 05/10/21 17:24 Gabapentin 300 Mg Capsule PO 300 mg TID CALE Administration Glucagon 1 mg 05/10/21 22:29 Glucagon For Inj 1 Mg Vial IM PRN PRN Hypoglycemia Protocol Glucose 15 gm 05/10/21 22:29 Glucose Oral Gel 15 Gm Of Glucse In 37.5 Gm Tube PO PRN PRN Hypoglycemia Protocol Hydroxyzine HCl 50 mg 05/10/21 11:28 Hydroxyzine Hcl 25 Mg Tablet PO Q4H PRN Itching Cefazolin Sodium 2 gm in 50 mls @ 100 mls/hr 05/10/21 15:00 05/11/21 07:14 Ancef 2 Gm/D5w 50 Ml IVPB 05/11/21 07:29 100 mls/hr Q8H CALE Administration Dextrose 1,000 mls @ 100 mls/hr 05/10/21 22:29 Dextrose 5% 1,000 Ml IVPB PRN PRN Hypoglycemia Protocol Insulin Aspart 2 - 5 units 05/11/21 08:00 Insulin Aspart (*Bkc) 100 Units/Ml SUB-Q TIDWM [facility] Protocol Loratadine 10 mg 05/11/21 09:00 Loratadine 10 Mg Tablet PO QAM CALE Losartan Potassium 50 mg 05/11/21 09:00 Losartan Potassium 50 Mg Tablet PO QAM [facility] Metformin HCl 250 mg 05/10/21 17:00 05/10/21 17:23 Metformin Hcl 250 Mg Tablet PO 250 mg BIDWM CALE Administration Montelukast Sodium 10 mg 05/10/21 21:00 05/10/21 20:58 Montelukast Sodium 10 Mg Tablet PO 10 mg HS CALE Administration Morphine Sulfate 3 mg 05/10/21 11:28 Morphine Sulfate (*Crx) 4 Mg/Ml Inj IV PUSH Q3H PRN Pain Rated 7-10 Naloxone HCl 0.1 mg 05/10/21 11:28 Naloxone Hcl 0.4 Mg/Ml Vial IV PUSH Q2M PRN Opiate Reversal Ondansetron HCl 4 mg 05/10/21 11:28 Ondansetron Inj 4 Mg/2 Ml Vi
--- NOTE | 2021-05-11 07:30 | PM.DS ---
DS: Admitting Diagnosis Discharge Date 05/11/21 Admitting Diagnosis R HIP DJD DS: Discharge Diagnosis Discharge Diagnosis (1) Degenerative joint disease of right hip: Code(s): M16.11 - Unilateral primary osteoarthritis, right hip Status: Acute DS: Summary Hospital Course Hospital Course: POD 1 AFTER R MADAN DID VERY WELL. SHE PASSED PT AND HER PAIN IS CONTROLLED. TAKING GOOD PO INTAKE. NO COMPLICATIONS. READY FOR D/C HOME WITH REGULAR DIET, ASA FOR DVT PROPHYLAXIS. SHE WILL HAVE HOME PT AND NURSING. SHE WILL F/U IN 3 WEEKS. Time spent discussing smoking cessation with patient: 3 to 10 minutes Status at Discharge Functional status at discharge: uses cane/walker Time Spent with Patient Time attestation: Total time spent providing and/or coordinating discharge services: Time spent: Less than 30 minutes DS: Data Data Completed and Pending Labs on day of discharge: Labs from last 24 hours 05/11/21 05/11/21 05/11/21 06:32 06:32 06:32 WBC 11.0 H RBC 2.88 L Hgb 8.3 L D Hct 26.1 L MCV 90.6 MCH 28.8 MCHC 31.8 L RDW 16.5 H Plt Count 158 MPV 9.9 Immature Gran % (Auto) 0.6 H Neut % (Auto) 76.9 H Lymph % (Auto) 13.1 L [place] % (Auto) 7.6 Eos % (Auto) 1.3 Baso % (Auto) 0.5 Lymph # (Auto) 1.44 [place] # (Auto) 0.8 H Eos # (Auto) 0.1 Baso # (Auto) 0.1 Abs Immat Gran (auto) 0.07 H Absolute Neuts (auto) 8.5 H Absolute Nucleated RBC 0.0 Nucleated RBC % 0.0 Sodium 130 L Potassium 3.8 Chloride 97 L Carbon Dioxide 27 Anion Gap 6 L BUN 8 Creatinine 0.60 L Estim Creat Clear Calc 61 Estimated GFR > 60 Glucose 130 H POC Capillary Glucose Hemoglobin A1c Pending Calcium 8.0 L Magnesium 1.3 L Total Bilirubin 0.6 AST 44 H ALT 23 Alkaline Phosphatase 39 Total Protein 5.0 L Albumin 3.1 L 05/10/21 05/10/21 14:37 10:08 WBC RBC Hgb Hct MCV MCH MCHC RDW Plt Count MPV Immature Gran % (Auto) Neut % (Auto) Lymph % (Auto) [place] % (Auto) Eos % (Auto) Baso % (Auto) Lymph # (Auto) [place] # (Auto) Eos # (Auto) Baso # (Auto) Abs Immat Gran (auto) Absolute Neuts (auto) Absolute Nucleated RBC Nucleated RBC % Sodium Potassium Chloride Carbon Dioxide Anion Gap BUN Creatinine Estim Creat Clear Calc Estimated GFR Glucose POC Capillary Glucose 125 H 136 H Hemoglobin A1c Calcium Magnesium Total Bilirubin AST ALT Alkaline Phosphatase Total Protein Albumin Discharge Plan Discharge Patient Disposition: Home Health Service Discharge Instructions: Post Op Total Hip Replacement Instructions Dr. Aamir Fraser [phone] ? Your dressing will be changed prior to your discharge. You will be sent home with one additional dressing to be changed in 5 days by the home health RN. Your incision was closed with dermabond, allow the dermabond to fall off naturally and do not disrupt incision healing. ? You may shower with your dressing but do not submerge in a bath tub. ? Do not drive or operate machinery until you are released by Dr. Fraser. ? Do not walk without a walker for any reason until you are released by Dr. Fraser. ? Continue to apply ice to the hip intermittently for additional pain relief. Protect your skin with a towel or pillow case. ? Continue to follow strict total hip replacement precautions. ? Your follow up appointment is indicated in your discharge instructions. ? Your medications have been sent to your pharmacy. ? Please contact our office with any questions/concerns regarding your hip at [phone]. Patient Instructions: Antibiotic Form Stand Alone Forms: General Discharge Information Follow-up/Referrals: Aamir Fraser MD [Physician] - Keep Reg. Scheduled Appt. Discharge Medications: No Action losartan 50 mg tablet 50 mg PO QAM RF: 0 metform
[2021-05-11 07:47] VITALS: BP 96/40; PULSE 93; RESP 12; TEMP 36.2; O2SAT 92
[2021-05-11 07:49] LABS: Hemoglobin A1C 5.9 % (<5.7)
[2021-05-11 08:25] LABS: Glucose Point of Care 120 mg/dl (65-105)
[2021-05-11] MEDS: ASPIRIN 325 MG ENTERIC TABLET 650 MG PO (08:47)
[2021-05-11] MEDS: PANTOPRAZOLE 40 MG TABLET PO (08:47)
[2021-05-11] MEDS: GABAPENTIN 300 MG CAPSULE PO (08:47)
[2021-05-11] MEDS: RALOXIFENE HCL (*CHEMO) 60 MG TABLET PO (08:48)
[2021-05-11] MEDS: SENNA/DOCUSATE SODIUM TABLET 2 TAB PO (08:48)
[2021-05-11] MEDS: metFORMIN HCL 250 MG TABLET PO (08:48)
[2021-05-11] MEDS: FAMOTIDINE 20 MG TABLET PO (08:49)
[2021-05-11] MEDS: LORATADINE 10 MG TABLET PO (08:49)
[2021-05-11] MEDS: LOSARTAN POTASSIUM 50 MG TABLET PO (08:50)
--- NOTE | 2021-05-11 08:51 | PCOTNOTE ---
On 05/11/21, the student, Selene Agustin, provided care and completed [facility] documentation on this patient. I have reviewed the student's documentation and agree with the findings.
--- NOTE | 2021-05-11 10:29 | WPDANESPN ---
Anes - Prog Note Post-Op Date/Time: 05/11/21 10:29 Cardiovascular status: normal Respiratory status: normal Airway patency: baseline Mental status: baseline Post-Op hydration status: normal Vital Signs: Last Vital Signs Temp 36.2 C L 05/11/21 07:47 Pulse 93 05/11/21 07:47 Resp 12 05/11/21 07:47 BP 96/40 L 05/11/21 07:47 Pulse Ox 92 05/11/21 07:47 Pain Score (VAS): 0 I/O: Intake & Output 05/10/21 05/11/21 05/11/21 23:59 07:59 15:59 Intake Total 1050 750 Balance 1050 750 Laboratory Tests 05/11/21 06:32 05/11/21 06:32 05/10/21 05/11/21 05/11/21 14:37 06:32 06:32 WBC 11.0 H RBC 2.88 L Hgb 8.3 L D Hct 26.1 L MCV 90.6 MCH 28.8 MCHC 31.8 L RDW 16.5 H Plt Count 158 MPV 9.9 Immature Gran % (Auto) 0.6 H Neut % (Auto) 76.9 H Lymph % (Auto) 13.1 L [place] % (Auto) 7.6 Eos % (Auto) 1.3 Baso % (Auto) 0.5 Lymph # (Auto) 1.44 [place] # (Auto) 0.8 H Eos # (Auto) 0.1 Baso # (Auto) 0.1 Abs Immat Gran (auto) 0.07 H Absolute Neuts (auto) 8.5 H Absolute Nucleated RBC 0.0 Nucleated RBC % 0.0 Sodium Potassium Chloride Carbon Dioxide Anion Gap BUN Creatinine Estim Creat Clear Calc Estimated GFR Glucose POC Capillary Glucose 125 H Hemoglobin A1c 5.9 H Calcium Magnesium Total Bilirubin AST ALT Alkaline Phosphatase Total Protein Albumin 05/11/21 05/11/21 06:32 08:21 WBC RBC Hgb Hct MCV MCH MCHC RDW Plt Count MPV Immature Gran % (Auto) Neut % (Auto) Lymph % (Auto) [place] % (Auto) Eos % (Auto) Baso % (Auto) Lymph # (Auto) [place] # (Auto) Eos # (Auto) Baso # (Auto) Abs Immat Gran (auto) Absolute Neuts (auto) Absolute Nucleated RBC Nucleated RBC % Sodium 130 L Potassium 3.8 Chloride 97 L Carbon Dioxide 27 Anion Gap 6 L BUN 8 Creatinine 0.60 L Estim Creat Clear Calc 61 Estimated GFR > 60 Glucose 130 H POC Capillary Glucose 120 H Hemoglobin A1c Calcium 8.0 L Magnesium 1.3 L Total Bilirubin 0.6 AST 44 H ALT 23 Alkaline Phosphatase 39 Total Protein 5.0 L Albumin 3.1 L Post-procedural complaints: none Patient Feedback: Patient satisfied with anesthetic care.
== END 2021-05-11 10:25 | disposition home health service (06) ==
LOC: ANHSURGERY 06:04 → ANHSUROVER 11:34
PROVIDERS: Physician Assistant; PCP Physician Assistant; Visit Provider Orthopaedic Surgery
PROC: (CPT 27130; principal; 2021-05-10 07:30)
DX: M16.11 Unilateral primary osteoarthritis, right hip (principal); E11.9 Type 2 diabetes mellitus without complications; I10 Essential (primary) hypertension; E78.5 Hyperlipidemia, unspecified; M81.0 Age-related osteoporosis without current pathological fracture; K21.9 Gastro-esophageal reflux disease without esophagitis; Z79.84 Long term (current) use of oral hypoglycemic drugs; Z87.891 Personal history of nicotine dependence
CPT/HCPCS: 27130; 36415; 73501; 80048; 80053; 80307; 81001; 82040; 82948; 83036; 83735; 85025; 85610; 85730; 86850; 86900; 86901; 87081; 93005; 97110; 97116; 97161; 97165; 97530; 97535; A9270; C1776; J0171; J0330; J0690; J1100; J1885; J2270; J2405; J2704; J2795; J7030; J7120

== ENCOUNTER 2021-09-23 10:16 | Outpatient (CLI) | payer OTHER, SELFPAY ==
--- NOTE | ~2021-09-23 | MM_ITS ---
EXAMINATION: MM screening sharon BI w [place] HISTORY: Screening TECHNIQUE: Craniocaudal and mediolateral oblique 3-D tomosynthesis images were obtained and synthetic 2-D images were generated. CAD analysis was submitted and interpreted. COMPARISON: Comparison to multiple prior studies sequentially, with oldest reviewed study dated 09/05. BREAST PARENCHYMAL COMPOSITION: There are scattered areas of fibroglandular density. FINDINGS: There is no evidence of suspicious mass, calcification, or architectural distortion to sugg est malignancy in either breast. There has been no suspicious interval change. IMPRESSION: 1. No mammographic evidence of malignancy. 2. Recommend routine screening mammography in one year. BI-RADS Category 1: Negative Reviewed, dictated and finalized at location A.
== END 2021-09-23 10:17 | disposition home or self-care (01) ==
LOC: ANHIMG 10:17
PROVIDERS: PCP Physician Assistant; Visit Provider Physician Assistant
DX: Z12.31 Encounter for screening mammogram for malignant neoplasm of breast (principal)
CPT/HCPCS: 77063; 77067

== ENCOUNTER 2021-12-15 12:06 | Outpatient (CLI) | payer OTHER, SELFPAY ==
--- NOTE | ~2021-12-15 | CT_ITS ---
EXAMINATION: CT abdomen wo con DATE: 12/15/2021 12:39 INDICATION: Epigastric pain and reflux TECHNIQUE: Computed tomography (CT) of the abdomen and pelvis was performed without intravenous contr ast. The dose-length product was 526.25 mGy-cm. Automated exposure control and iterative reconstructi on technique were employed. COMPARISON: CT dated 05/26/2020 FINDINGS: Lung bases are unremarkable. Heart size normal. No significant pleural or pericardial effus ion. There are right diaphragmatic/perihepatic calcifications, nonspecific. Lung bases are unremarkab le. Heart size normal. There are cholecystectomy clips. Small low-density lesion in the right hepatic lobe, most likely benign cysts. The spleen, pancreas, adrenal glands and kidneys are unremarkable. T here is mild thickening of the sigmoid colon. No renal stones or hydronephrosis. Mild atherosclerosis without aneurysm. No lymphadenopathy. Mild superior endplate compression deformity of L2 is chronic. Mild lumbar spondylosis. IMPRESSION: 1. Mild segmental thickening of the sigmoid colon without obstruction. This may be infectious/inflamm atory, although neoplasm is not excluded. Recommend GI consultation. Reviewed, dictated and finalized at location A. IMPRESSION: 1. Mild segmental thickening of the sigmoid colon without obstruction. This may be infectious/inflammatory, although neoplasm is not excluded. Recommend GI co nsultation.
== END 2021-12-15 12:07 | disposition home or self-care (01) ==
PROVIDERS: PCP Physician Assistant; Visit Provider Physician Assistant
DX: R10.13 Epigastric pain (principal); K21.9 Gastro-esophageal reflux disease without esophagitis; R93.3 Abnormal findings on diagnostic imaging of other parts of digestive tract
CPT/HCPCS: 74150

== ENCOUNTER 2022-01-22 11:05 | Emergency (ER) | payer OTHER, SELFPAY ==
[2022-01-22 11:11] VITALS: BP 153/85; PULSE 94; RESP 14; TEMP 36.3; O2SAT 99
--- NOTE | 2022-01-22 12:22 | ED.SKABFB ---
HPI - Skin/Abscess/Foreign Bdy General Chief complaint: Skin/Abscess/Foreign Body Stated complaint: irritation to arian area Time Seen by Provider: 01/22/22 11:14 History of Present Illness HPI narrative: Patient is 76-year-old female who presents ER with irritation to her perineum and rectum. Began last night. She applied some antifungal cream as well as some other topical remedies. No improvement. No blisters. Is on both sides and not just 1. No urinary frequency urgency or dysuria. Denies any urinary incontinence or sitting in a moist diaper/underwear. Has not had issues like this previously. No diarrhea. Feels like she has been wiping well. Related Data Home Medications Medication Instructions Recorded Confirmed Jose A-600 With Vitamin D 1 tab-cap PO BID 06/11/20 08/11/21 Tumeric 1,000 mg PO BID 06/11/20 08/11/21 alendronate 10 mg tablet 10 mg PO WEEKLY 06/11/20 08/11/21 famotidine 20 mg tablet (Pepcid AC) 20 mg PO DAILY 06/11/20 08/11/21 gabapentin 300 mg capsule 300 mg PO TID 06/11/20 08/11/21 loratadine 10 mg tablet (Claritin) 10 mg PO QAM 06/11/20 08/11/21 losartan 50 mg tablet 50 mg PO QAM 06/11/20 08/11/21 metformin 500 mg tablet 250 mg PO BID 06/11/20 08/11/21 montelukast 10 mg tablet 10 mg PO HS 06/11/20 08/11/21 omega-3 fatty acids 1,000 mg PO BID 06/11/20 08/11/21 omeprazole 40 mg capsule,delayed 40 mg PO BID 06/11/20 08/11/21 release raloxifene 60 mg tablet 60 mg PO QAM 06/11/20 08/11/21 simvastatin 20 mg tablet 20 mg PO HS 06/11/20 08/11/21 vitamins A,C,O-loga-oiclpp 14,320 1 cap PO BID 06/11/20 08/11/21 unit-226 mg-200 unit capsule (PreserVision AREDS) vitamin B complex 1 tablet PO DAILY 12/03/20 08/11/21 duloxetine 60 mg capsule,delayed 60 mg PO QAM 04/29/21 08/11/21 release duloxetine 40 mg capsule,delayed 40 mg PO BID 05/02/21 08/11/21 release Allergies Allergy/AdvReac Type Severity Reaction Status Date / Time STEVEN Inhibitors Allergy Intermediate Hives Verified 01/22/22 11:25 lisinopril Allergy Mild Hives / Verified 01/22/22 11:25 Red Face Review of Systems Review of Systems: All systems reviewed & are unremarkable except as noted in HPI and below Constitutional: Constitutional: Denies chills and Denies fever(s) Gastrointestinal: Gastrointestinal: Denies abdominal pain, Denies diarrhea, Denies nausea and Denies vomiting Genitourinary: Genitourinary: Denies nocturia, Denies dysuria, Denies urinary incontinence and Denies vaginal discharge Integumentary/Breasts: Skin/Breast: Reports pruritus, Reports erythema, Reports rash and Denies skin ulcer PMFSH Past Medical History Medical History Carpal tunnel syndrome Clostridium difficile infection Gastroesophageal reflux disease History of benign breast biopsy Hyperlipidemia Hypertension Osteoporosis Spinal stenosis Squamous cell skin cancer Type 2 diabetes mellitus Surgical History Surgical History History of arthroplasty of right hip (05/10/21) History of carpal tunnel surgery of left wrist (03/2021) History of carpal tunnel surgery of right wrist (1998) History of colonoscopy with polypectomy History of laparoscopic cholecystectomy (1998) History of squamous cell carcinoma excision From the right forearm. History of surgical removal of ganglion cyst Right thumb and left wrist. History of total left hip arthroplasty (~03/04/19) Status post dilatation of esophageal stricture Family History Family History Father Family history of Parkinson's disease Diabetes mellitus, Onset Age: 92 Mother Family history of Alzheimer's disease Family history of malignant neoplasm of breast in first degree relative Patient's mother is Other Family history of arthritis Family history of gout Social History Social History (Reviewed 08/11/21 @ 14:06 by
== END 2022-01-22 12:41 | disposition home or self-care (01) ==
PROVIDERS: Emergency Provider Emergency Medicine; PCP Physician Assistant
DX: R10.2 Pelvic and perineal pain (principal); I10 Essential (primary) hypertension; E11.9 Type 2 diabetes mellitus without complications; E78.5 Hyperlipidemia, unspecified; M81.0 Age-related osteoporosis without current pathological fracture; K21.9 Gastro-esophageal reflux disease without esophagitis; Z85.828 Personal history of other malignant neoplasm of skin; Z79.84 Long term (current) use of oral hypoglycemic drugs; Z96.643 Presence of artificial hip joint, bilateral; Z87.891 Personal history of nicotine dependence
CPT/HCPCS: 99283

== ENCOUNTER 2022-02-09 16:18 | Emergency (ER) | payer OTHER, SELFPAY ==
[2022-02-09 16:42] VITALS: BP 136/68; PULSE 80; RESP 16; TEMP 37; O2SAT 98
--- NOTE | 2022-02-09 17:15 | ED.URI ---
HPI - URI/Sore Throat General Chief Complaint: Upper Respiratory Infection Stated Complaint: fever, swollen lymph nodes, achey Time Seen by Provider: 02/09/22 17:15 Source: patient and RN notes reviewed Mode of arrival: ambulatory Limitations: no limitations History of Present Illness HPI Narrative: 77 y/o female presented for c/o swollen lymph nodes in neck for two days. Reports feeling well otherwise. Endorses coughing and sneezing which she relates to seasonal allergies. Denies sob, wheezing, n/v/d/f/c. PCP instructed evaluation for covid test. MD elicited complaint: cough Related Data Home Medications Medication Instructions Recorded Confirmed Jose A-600 With Vitamin D 1 tab-cap PO BID 06/11/20 08/11/21 Tumeric 1,000 mg PO BID 06/11/20 08/11/21 alendronate 10 mg tablet 10 mg PO WEEKLY 06/11/20 08/11/21 famotidine 20 mg tablet (Pepcid AC) 20 mg PO DAILY 06/11/20 08/11/21 gabapentin 300 mg capsule 300 mg PO TID 06/11/20 08/11/21 loratadine 10 mg tablet (Claritin) 10 mg PO QAM 06/11/20 08/11/21 losartan 50 mg tablet 50 mg PO QAM 06/11/20 08/11/21 metformin 500 mg tablet 250 mg PO BID 06/11/20 08/11/21 montelukast 10 mg tablet 10 mg PO HS 06/11/20 08/11/21 omega-3 fatty acids 1,000 mg PO BID 06/11/20 08/11/21 omeprazole 40 mg capsule,delayed 40 mg PO BID 06/11/20 08/11/21 release raloxifene 60 mg tablet 60 mg PO QAM 06/11/20 08/11/21 simvastatin 20 mg tablet 20 mg PO HS 06/11/20 08/11/21 vitamins A,C,Y-jgpz-bnsgmb 14,320 1 cap PO BID 06/11/20 08/11/21 unit-226 mg-200 unit capsule (PreserVision AREDS) vitamin B complex 1 tablet PO DAILY 12/03/20 08/11/21 duloxetine 60 mg capsule,delayed 60 mg PO QAM 04/29/21 08/11/21 release duloxetine 40 mg capsule,delayed 40 mg PO BID 05/02/21 08/11/21 release Fish Oil 02/09/22 Iron 65 mg 02/09/22 pantoprazole 20 mg tablet,delayed 20 mg PO QAM 02/09/22 02/09/22 release (Protonix) sucralfate 1 gram tablet 02/09/22 Allergies Allergy/AdvReac Type Severity Reaction Status Date / Time STEVEN Inhibitors Allergy Intermediate Hives Verified 02/09/22 16:41 lisinopril Allergy Mild Hives / Verified 02/09/22 16:41 Red Face Review of Systems Review of Systems: CONSTITUTIONAL: Denies malaise, chills, sweats, fever EYES: Denies visual changes, redness, or discharge ENT: Reports rhinorrhea, congestion CARDIOVASCULAR: Denies chest pain, palpitations, edema RESPIRATORY: Denies dyspnea GASTROINTESTINAL: Denies abdominal pain, nausea, vomiting, diarrhea SKIN: Denies rash or itching MUSCULOSKELETAL: Denies myalgia NEUROLOGIC: Denies headache PMFSH Past Medical History Medical History Carpal tunnel syndrome Clostridium difficile infection Gastroesophageal reflux disease History of benign breast biopsy Hyperlipidemia Hypertension Osteoporosis Spinal stenosis Squamous cell skin cancer Type 2 diabetes mellitus Surgical History Surgical History History of arthroplasty of right hip (05/10/21) History of carpal tunnel surgery of left wrist (03/2021) History of carpal tunnel surgery of right wrist (1998) History of colonoscopy with polypectomy History of laparoscopic cholecystectomy (1998) History of squamous cell carcinoma excision From the right forearm. History of surgical removal of ganglion cyst Right thumb and left wrist. History of total left hip arthroplasty (~03/04/19) Status post dilatation of esophageal stricture Family History Family History Father Family history of Parkinson's disease Diabetes mellitus, Onset Age: 92 Mother Family history of Alzheimer's disease Family history of malignant neoplasm of breast in first degree relative Patient's mother is Other Family history of arthritis Family history of gout Social History Social History (Reviewed 02/09/22 @ 19:29 by Bushra
== END 2022-02-09 18:00 | disposition home or self-care (01) ==
PROVIDERS: Emergency Provider Nurse Practitioner Family; PCP Physician Assistant
DX: J30.9 Allergic rhinitis, unspecified (principal); E78.5 Hyperlipidemia, unspecified; K21.9 Gastro-esophageal reflux disease without esophagitis; I10 Essential (primary) hypertension; E11.9 Type 2 diabetes mellitus without complications; F17.210 Nicotine dependence, cigarettes, uncomplicated; Z20.822 Contact with and (suspected) exposure to COVID-19
CPT/HCPCS: 87426; 99212; C9803; G0463

== ENCOUNTER 2022-03-24 10:03 | Emergency (ER) | payer OTHER, SELFPAY ==
[2022-03-24] VITALS (14 sets, daily range): BP systolic 109–133; BP diastolic 55–90; PULSE 79–86; RESP 14–18; TEMP 36.1; O2SAT 95–100
--- NOTE | 2022-03-24 10:27 | ECG_ITS ---
Measurements Intervals [place] Rate: 75 P: 50 CO: 160 QRS: 5 QRSD: 71 T: 76 QT: 339 QTc: 380 Interpretive Statements SINUS RHYTHM WITH OCCASIONAL SUPRAVENTRICULAR PREMATURE COMPLEXES BASELINE ARTIFACT LOW QRS VOLTAGE IN PRECORDIAL LEADS ABNORMAL ECG COMPARED TO ECG 04/29/2021 13:09:04 NO SIGNIFICANT CHANGE Electronically Signed On 03-24-2022 16:47:20 CDT by [place] Prather M.D.
[2022-03-24 11:00] LABS: Basophils Absolute Auto 0.1 K/mm3 (0.0-0.1); Basophils Percent Auto 0.5 % (0.2-1.2); Eosinophils Absolute Auto 0.1 K/mm3 (0-0.3); Eosinophils Percent Auto 1.1 % (0-4.4); Hematocrit 39.7 % (37.0-47.0); Hemoglobin 13.3 g/dL (12.0-15.0); Immature Granulocyte Absolute 0.04 K/mm3 (0.00-0.031); Immature Granulocyte Percent A 0.4 % (0-0.5); Lymphocytes Absolute Auto 2.17 K/mm3 (0.9-3.2); Lymphocytes Percent Auto 19.7 % (18.3-44.2); Mean Corpuscular HGB Conc 33.5 g/dl (32-36); Mean Corpuscular Volume 86.7 fl (80-100); Mean Platelet Volume 10.3 fl (7.4-10.4); Monocytes Absolute Auto 0.6 K/mm3 (0.1-0.6); Monocytes Percent Auto 5.4 % (2.6-8.5); Neutrophils Absolute Auto 8.1 K/mm3 (1.3-6.7); Neutrophils Percent Auto 72.9 % (45.5-73.1); Platelet Count Result 189 k/mm3 (150-375); Red Blood Count 4.58 M/mm3 (4.2-5.4); Red Cell Distribution Width 14.9 % (11.5-14.5)
[2022-03-24 11:15] LABS: Alanine Aminotransferase 17 U/L (6-35); Albumin Level 4.2 g/dL (3.5-5.1); Alkaline Phosphatase 50 U/L (38-126); Anion Gap 13 mmol/L (8-16); Aspartate Amino Transferase 21 U/L (14-36); Bilirubin,Total 0.5 mg/dL (0.2-1.3); Blood Urea Nitrogen 11 mg/dL (7-17); Calcium 8.9 mg/dL (8.4-10.2); Carbon Dioxide 25 mmol/L (22-30); Chloride 101 mmol/L (98-107); Estimated CRCL calculation 57 ml/min; Estimated Glomerular Filt Rate > 60; Glucose 164 mg/dL (65-110); Potassium 3.5 mmol/L (3.4-5.0); Sodium 139 mmol/L (137-145)
[2022-03-24] MEDS: MECLIZINE HCL 25 MG TABLET PO (15:03)
--- NOTE | 2022-03-24 15:17 | ED.DIZZY ---
HPI - Dizziness General Chief Complaint: Dizziness Stated Complaint: dizziness Time Seen by Provider: 03/24/22 13:41 History of Present Illness HPI Narrative: Patient is a 77-year-old female who presents ER with dizziness. Reports for several days she has been having it when she goes from sitting to standing and when she turns left when walking. Today she started having it while sitting. No nausea or vomiting or sweats. No focal weakness or numbness in arm or leg. Improves if she sits still. She reports has been having sinus issues recently and has been taking Claritin. Related Data Home Medications Medication Instructions Recorded Confirmed Jose A-600 With Vitamin D 1 tab-cap PO BID 06/11/20 02/23/22 Tumeric 1,000 mg PO BID 06/11/20 02/23/22 alendronate 10 mg tablet 10 mg PO WEEKLY 06/11/20 02/23/22 famotidine 20 mg tablet (Pepcid AC) 20 mg PO DAILY 06/11/20 02/23/22 gabapentin 300 mg capsule 300 mg PO TID 06/11/20 02/23/22 loratadine 10 mg tablet (Claritin) 10 mg PO QAM 06/11/20 02/23/22 losartan 50 mg tablet 50 mg PO QAM 06/11/20 02/23/22 metformin 500 mg tablet 250 mg PO BID 06/11/20 02/23/22 montelukast 10 mg tablet 10 mg PO HS 06/11/20 02/23/22 omega-3 fatty acids 1,000 mg PO BID 06/11/20 02/23/22 omeprazole 40 mg capsule,delayed 40 mg PO BID 06/11/20 02/23/22 release raloxifene 60 mg tablet 60 mg PO QAM 06/11/20 02/23/22 simvastatin 20 mg tablet 20 mg PO HS 06/11/20 02/23/22 vitamins A,C,F-kvmv-eihsjj 14,320 1 cap PO BID 06/11/20 02/23/22 unit-226 mg-200 unit capsule (PreserVision AREDS) vitamin B complex 1 tablet PO DAILY 12/03/20 02/23/22 duloxetine 60 mg capsule,delayed 60 mg PO QAM 04/29/21 02/23/22 release duloxetine 40 mg capsule,delayed 40 mg PO BID 12/06/21 09/29/22 release Fish Oil 02/09/22 02/23/22 Iron 65 mg 02/09/22 02/23/22 pantoprazole 20 mg tablet,delayed 20 mg PO QAM 02/09/22 02/23/22 release (Protonix) sucralfate 1 gram tablet 02/09/22 02/23/22 Allergies Allergy/AdvReac Type Severity Reaction Status Date / Time STEVEN Inhibitors Allergy Intermediate Hives Verified 02/23/22 09:57 lisinopril Allergy Mild Hives / Verified 02/23/22 09:57 Red Face Review of Systems Review of Systems: All systems reviewed & are unremarkable except as noted in HPI and below Constitutional: Constitutional: Denies chills, Denies fatigue and Denies fever(s) ENT: Reports dizziness, Reports nasal congestion and Denies sore throat Cardiovascular: Cardiovascular: Denies chest pain, Denies rapid heart rate and Denies radiating jaw, neck or arm pain Respiratory: Respiratory: Denies cough and Denies dyspnea Gastrointestinal: Gastrointestinal: Denies abdominal pain, Denies nausea and Denies vomiting Neurologic: Reports dizziness, Denies syncope, Denies headache(s), Denies focal weakness and Denies numbness [facility] Past Medical History Medical History Carpal tunnel syndrome Clostridium difficile infection Gastroesophageal reflux disease History of benign breast biopsy Hyperlipidemia Hypertension Osteoporosis Spinal stenosis Squamous cell skin cancer Type 2 diabetes mellitus Surgical History Surgical History History of arthroplasty of right hip (05/10/21) History of carpal tunnel surgery of left wrist (03/2021) History of carpal tunnel surgery of right wrist (1998) History of colonoscopy with polypectomy History of laparoscopic cholecystectomy (1998) History of squamous cell carcinoma excision From the right forearm. History of surgical removal of ganglion cyst Right thumb and left wrist. History of total left hip arthroplasty (~03/04/19) Status post dilatation of esophageal stricture Family History Family History Father Family history of Parkinson's disease Diabetes mellitus, Onset Age: 92 Mother Family history of [place]
== END 2022-03-24 16:32 | disposition home or self-care (01) ==
PROVIDERS: Emergency Medicine; Emergency Provider Emergency Medicine; PCP Physician Assistant
DX: R42 Dizziness and giddiness (principal); E78.5 Hyperlipidemia, unspecified; I10 Essential (primary) hypertension; E11.9 Type 2 diabetes mellitus without complications; Z87.891 Personal history of nicotine dependence
CPT/HCPCS: 36415; 80053; 85025; 93005; 99283; A9270

== ENCOUNTER 2022-09-26 10:04 | Outpatient (CLI) | payer OTHER, SELFPAY ==
--- NOTE | ~2022-09-26 | MM_ITS ---
EXAMINATION: MM screening [facility] [place] HISTORY: Screening mammogram TECHNIQUE: Craniocaudal and mediolateral oblique 3-D tomosynthesis images were obtained and synthetic 2-D images were generated. CAD analysis was submitted and interpreted. COMPARISON: 09/23/2021, 09/21/2020, 09/18/2019 BREAST PARENCHYMAL COMPOSITION: The breasts are almost entirely fatty. FINDINGS: No suspicious mass, calcification, or architectural distortion are identified in either javy ast to suggest malignancy. There has been no suspicious interval change. IMPRESSION: 1. No mammographic evidence of malignancy. 2. Recommend routine screening mammography in one year. BI-RADS Category 1: Negative Reviewed, dictated and finalized at location A.
== END 2022-09-26 10:05 | disposition home or self-care (01) ==
PROVIDERS: PCP Physician Assistant; Visit Provider Obstetrics & Gynecology
DX: Z12.31 Encounter for screening mammogram for malignant neoplasm of breast (principal)
CPT/HCPCS: 77063; 77067

== ENCOUNTER 2022-10-24 13:37 | Outpatient (CLI) | payer OTHER, SELFPAY ==
--- NOTE | ~2022-10-24 | DEXA_ITS ---
Bone Density Report Name: FERCHO LEIGH Age: 77 Sex: Female Ethnicity: White Date of : 1945 Indication: postmenopausal; screening for osteoporosis; prior fracture; Referring Provider: AGUSTINA, SENIA Study: Bone densitometry was performed. Exam Date: October 24, 2022 Accession number: [id number] Bone Density: Region BMD T-score Z-score Classification AP Spine(L1, L3, L4) 0.968 -0.8 1.9 Normal World Health Organization criteria for BMD impression classify patients as: Normal (T-score at or above -1.0), Osteopenia (T-score between -1.0 and -2.5), or Osteoporosis (T-score at or below -2.5). Clinical Information Provided by Patient: Has had a low trauma fracture Smokes Has used the following medications: Vitamin D Patient maximum height was 62.0 Menopause Age: 54 No regular weight bearing exercise Onset of menses at age 14 Number of children 1 Impression: The patient has normal bone mass. The patient has risk factors, including: smoking, previous fracture. Discussion: BONE DENSITY IS ABOVE THE MINIMUM DESIRABLE LEVEL AT ALL SKELETAL SITES TESTED. This patient?s bone mineral density is above the minimum desirable level (T-score -1.0 or better) at all sites measured. The patient should follow a healthful lifestyle (good nutrition with adequate calcium and vitamin D, and appropriate weight-bearing exercise). Follow-Up: Consider repeating this study in 5 years or sooner if there is some new clinical indication. Reported by: USMAN on 10/24/2022 1:55:00 PM. Reviewed, dictated and finalized at location ADarryl IBARRA
== END 2022-10-24 13:38 | disposition home or self-care (01) ==
LOC: ANHIMG 13:38
PROVIDERS: PCP Physician Assistant; Visit Provider Physician Assistant
DX: Z78.0 Asymptomatic menopausal state (principal)
CPT/HCPCS: 77080

== ENCOUNTER 2022-12-30 10:59 | Emergency (ER) | payer OTHER, SELFPAY ==
[2022-12-30 11:08] VITALS: BP 124/54; PULSE 99; RESP 12; TEMP 36.2; O2SAT 100
--- NOTE | 2022-12-30 11:32 | ED.GENADULT ---
HPI - General Adult General Chief complaint: Back Pain/Injury Stated complaint: Lower Back Pain Time Seen by Provider: 12/30/22 11:32 Source: patient Mode of arrival: ambulatory Limitations: no limitations History of Present Illness HPI narrative: 77-year-old female patient presents to the [facility] with complaints of left lower back pain that started earlier this week. Patient states she had it for about 2 days and then it went away and she did not think much of it however last night the pain came back. Patient states she has taken 2 Tylenol today for the pain. Patient states at times she does have radiation to the left anterior thigh. Denies any numbness or tingling down the legs. Denies any recent falls. Denies any recent injury to the back that she is aware of. Denies any numbness between the legs. Denies any bowel or bladder loss of control. Patient does have history of sciatica in the past. Related Data Home Medications Medication Instructions Recorded Confirmed Jose A-600 With Vitamin D 1 tab-cap PO BID 06/11/20 12/30/22 Tumeric 1,000 mg PO BID 06/11/20 12/30/22 alendronate 10 mg tablet 10 mg PO WEEKLY 06/11/20 12/30/22 famotidine 20 mg tablet (Pepcid AC) 20 mg PO DAILY 06/11/20 12/30/22 gabapentin 300 mg capsule 300 mg PO TID 06/11/20 12/30/22 loratadine 10 mg tablet (Claritin) 10 mg PO QAM 06/11/20 12/30/22 losartan 50 mg tablet 50 mg PO [facility] 06/11/20 12/30/22 metformin 500 mg tablet 250 mg PO BID 06/11/20 12/30/22 montelukast 10 mg tablet 10 mg PO HS 06/11/20 12/30/22 omega-3 fatty acids 1,000 mg PO BID 06/11/20 12/30/22 omeprazole 40 mg capsule,delayed 40 mg PO BID 06/11/20 12/30/22 release raloxifene 60 mg tablet 60 mg PO QAM 06/11/20 12/30/22 simvastatin 20 mg tablet 20 mg PO HS 06/11/20 12/30/22 vitamins A,C,C-pvhq-gzgokk 4,296 1 cap PO BID 06/11/20 12/30/22 mcg-226 mg-90 mg capsule (PreserVision AREDS) vitamin B complex 1 tablet PO DAILY 12/03/20 12/30/22 duloxetine 60 mg capsule,delayed 60 mg PO QAM 04/29/21 12/30/22 release duloxetine 40 mg capsule,delayed 40 mg PO BID 05/02/21 12/30/22 release Fish Oil 1 cap PO DAILY 02/09/22 12/30/22 Iron 65 mg PO DAILY 02/09/22 12/30/22 pantoprazole 20 mg tablet,delayed 20 mg PO QAM 02/09/22 12/30/22 release (Protonix) sucralfate 1 gram tablet 1 g PO DAILY 02/09/22 12/30/22 Allergies Allergy/AdvReac Type Severity Reaction Status Date / Time STEVEN Inhibitors Allergy Intermediate Hives Verified 12/30/22 11:09 lisinopril Allergy Mild Hives / Verified 12/30/22 11:09 Red Face Review of Systems Review of Systems: CONSTITUTIONAL: Denies fever, chills, or sweats. EYES: Denies visual changes, redness, or discharge. ENT: Denies rhinorrhea, congestion, sore throat, or otalgia. CARDIOVASCULAR: Denies chest pain, palpitations, or edema. RESPIRATORY: Denies cough or dyspnea. GASTROINTESTINAL: Denies abdominal pain, nausea, vomiting, or diarrhea. GENITOURINARY: Denies dysuria or hematuria. SKIN: Denies rash or itching. MUSCULOSKELETAL: Positive left lower back pain, joint pain, or myalgia. NEUROLOGIC: Denies headache, numbness, or weakness. PSYCHIATRIC: Denies anxiety or depression. [facility] Past Medical History Medical History Carpal tunnel syndrome Clostridium difficile infection Gastroesophageal reflux disease History of benign breast biopsy Hyperlipidemia Hypertension Osteoporosis Spinal stenosis Squamous cell skin cancer Type 2 diabetes mellitus Surgical History Surgical History History of arthroplasty of right hip (05/10/21) History of carpal tunnel surgery of left wrist (03/2021) History of carpal tunnel surgery of right wrist (1998) History of colonoscopy with polypectomy History of laparoscopic cholecystectomy (1998) History of squamous cell carcinoma excision From the right forearm. History of surgical removal of ganglion cyst
== END 2022-12-30 11:45 | disposition home or self-care (01) ==
PROVIDERS: Emergency Provider Nurse Practitioner Family; PCP Physician Assistant
DX: M54.32 Sciatica, left side (principal); Z87.891 Personal history of nicotine dependence; K21.9 Gastro-esophageal reflux disease without esophagitis; E78.5 Hyperlipidemia, unspecified; I10 Essential (primary) hypertension; M81.0 Age-related osteoporosis without current pathological fracture; M48.00 Spinal stenosis, site unspecified; E11.9 Type 2 diabetes mellitus without complications; Z85.828 Personal history of other malignant neoplasm of skin; Z86.19 Personal history of other infectious and parasitic diseases; Z96.643 Presence of artificial hip joint, bilateral
CPT/HCPCS: 99213; G0463

== ENCOUNTER 2022-12-30 14:12 | Emergency (ER) | payer OTHER, SELFPAY ==
--- NOTE | ~2022-12-30 | XR_ITS ---
Supine and upright views of the abdomen Clinical history: Hematuria Findings: Bowel gas pattern is nonspecific. No evidence for obstruction or free air. Cholecystectomy clips noted. No abnormal mass lesion or calcification is seen. Bilateral hip arthroplasties are in pl [facility]. Impression: No definite renal/ureteral stone evident on this exam. Reviewed, dictated and finalized at [facility]. Impression: No definite renal/ureteral stone evident on this exam.
[2022-12-30 14:22] VITALS: BP 125/60; PULSE 96; RESP 14; TEMP 36.3; O2SAT 100
--- NOTE | 2022-12-30 14:51 | ED.GENADULT ---
HPI - General Adult General Chief complaint: Urogenital-Female Stated complaint: UTI Time Seen by Provider: 12/30/22 14:51 Source: patient Mode of arrival: ambulatory Limitations: no limitations History of Present Illness HPI narrative: 77-year-old female patient presents to the [facility] with complaints of hematuria. Patient was seen here earlier for lower back pain but denies any urinary symptoms at that time was treated for a flare-up of sciatica due to her history. Patient returned today stating that when she got home she had urgency and noticed a little bit of blood in her urine and decided come back to be checked out. Patient states that she recently just started having urgency and frequency. Patient has had UTIs before in the past. Related Data Home Medications Medication Instructions Recorded Confirmed Jose A-600 With Vitamin D 1 tab-cap PO BID 06/11/20 12/30/22 Tumeric 1,000 mg PO BID 06/11/20 12/30/22 alendronate 10 mg tablet 10 mg PO WEEKLY 06/11/20 12/30/22 famotidine 20 mg tablet (Pepcid AC) 20 mg PO DAILY 06/11/20 12/30/22 gabapentin 300 mg capsule 300 mg PO TID 06/11/20 12/30/22 loratadine 10 mg tablet (Claritin) 10 mg PO QAM 06/11/20 12/30/22 losartan 50 mg tablet 50 mg PO QAM 06/11/20 12/30/22 metformin 500 mg tablet 250 mg PO BID 06/11/20 12/30/22 montelukast 10 mg tablet 10 mg PO HS 06/11/20 12/30/22 omega-3 fatty acids 1,000 mg PO BID 06/11/20 12/30/22 omeprazole 40 mg capsule,delayed 40 mg PO BID 06/11/20 12/30/22 release raloxifene 60 mg tablet 60 mg PO QAM 06/11/20 12/30/22 simvastatin 20 mg tablet 20 mg PO HS 06/11/20 12/30/22 vitamins A,C,Y-ohrt-nyzkxt 4,296 1 cap PO BID 06/11/20 12/30/22 mcg-226 mg-90 mg capsule (PreserVision AREDS) vitamin B complex 1 tablet PO DAILY 12/03/20 12/30/22 duloxetine 60 mg capsule,delayed 60 mg PO QAM 04/29/21 12/30/22 release duloxetine 40 mg capsule,delayed 40 mg PO BID 05/02/21 12/30/22 release Fish Oil 1 cap PO DAILY 02/09/22 12/30/22 Iron 65 mg PO DAILY 02/09/22 12/30/22 pantoprazole 20 mg tablet,delayed 20 mg PO QAM 02/09/22 12/30/22 release (Protonix) sucralfate 1 gram tablet 1 g PO DAILY 02/09/22 12/30/22 Allergies Allergy/AdvReac Type Severity Reaction Status Date / Time STEVEN Inhibitors Allergy Intermediate Hives Verified 12/30/22 11:09 lisinopril Allergy Mild Hives / Verified 12/30/22 11:09 Red Face Review of Systems Review of Systems: CONSTITUTIONAL: Denies fever, chills, or sweats. EYES: Denies visual changes, redness, or discharge. ENT: Denies rhinorrhea, congestion, sore throat, or otalgia. CARDIOVASCULAR: Denies chest pain, palpitations, or edema. RESPIRATORY: Denies cough or dyspnea. GASTROINTESTINAL: Denies abdominal pain, nausea, vomiting, or diarrhea. GENITOURINARY: Positive dysuria or hematuria. SKIN: Denies rash or itching. MUSCULOSKELETAL: Denies back pain, joint pain, or myalgia. NEUROLOGIC: Denies headache, numbness, or weakness. PSYCHIATRIC: Denies anxiety or depression. [facility] Past Medical History Medical History Carpal tunnel syndrome Clostridium difficile infection Gastroesophageal reflux disease History of benign breast biopsy Hyperlipidemia Hypertension Osteoporosis Spinal stenosis Squamous cell skin cancer Type 2 diabetes mellitus Surgical History Surgical History History of arthroplasty of right hip (05/10/21) History of carpal tunnel surgery of left wrist (03/2021) History of carpal tunnel surgery of right wrist (1998) History of colonoscopy with polypectomy History of laparoscopic cholecystectomy (1998) History of squamous cell carcinoma excision From the right forearm. History of surgical removal of ganglion cyst Right thumb and left wrist. History of total left hip arthroplasty (~03/04/19) Status post dilatation of esophageal stricture Family History Family History (Reviewed
== END 2022-12-30 15:15 | disposition home or self-care (01) ==
PROVIDERS: Emergency Provider Nurse Practitioner Family; PCP Physician Assistant
DX: N30.01 Acute cystitis with hematuria (principal); Z87.891 Personal history of nicotine dependence; K21.9 Gastro-esophageal reflux disease without esophagitis; E78.5 Hyperlipidemia, unspecified; I10 Essential (primary) hypertension; M81.0 Age-related osteoporosis without current pathological fracture; E11.9 Type 2 diabetes mellitus without complications; Z85.828 Personal history of other malignant neoplasm of skin; Z96.643 Presence of artificial hip joint, bilateral; Z86.19 Personal history of other infectious and parasitic diseases
CPT/HCPCS: 74018; 81003; 87086; 99213; G0463

== ENCOUNTER 2023-02-03 09:48 | Emergency (ER) | payer OTHER, SELFPAY ==
--- NOTE | 2023-02-03 09:50 | ED.FEMALEGU ---
HPI - Female Genitourinary General Chief complaint: Urogenital-Female Stated complaint: Female Urogenital Time Seen by Provider: 02/03/23 09:50 Source: patient Mode of arrival: ambulatory Limitations: no limitations History of Present Illness HPI Narrative: Lizett is a 78-year-old female patient presenting to the clinic today with complaints of bladder pressure and discomfort. She reports symptoms just began this morning. Denies any pain with urination or blood in her urine. She denies any fever, chills, abdominal pain, or flank pain. Related Data Home Medications Medication Instructions Recorded Confirmed Jose A-600 With Vitamin D 1 tab-cap PO BID 06/11/20 02/03/23 Tumeric 1,000 mg PO BID 06/11/20 02/03/23 alendronate 10 mg tablet 10 mg PO WEEKLY 06/11/20 02/03/23 gabapentin 300 mg capsule 300 mg PO TID 06/11/20 02/03/23 loratadine 10 mg tablet (Claritin) 10 mg PO QAM 06/11/20 02/03/23 losartan 50 mg tablet 50 mg PO QAM 06/11/20 02/03/23 metformin 500 mg tablet 250 mg PO BID 06/11/20 02/03/23 montelukast 10 mg tablet 10 mg PO HS 06/11/20 02/03/23 omega-3 fatty acids 1,000 mg PO BID 06/11/20 02/03/23 raloxifene 60 mg tablet 60 mg PO QAM 06/11/20 02/03/23 simvastatin 20 mg tablet 20 mg PO HS 06/11/20 02/03/23 vitamins A,C,T-dqkb-pudcfq 4,296 1 cap PO BID 06/11/20 02/03/23 mcg-226 mg-90 mg capsule (PreserVision AREDS) vitamin B complex 1 tablet PO DAILY 12/03/20 02/03/23 duloxetine 60 mg capsule,delayed 60 mg PO QAM 04/29/21 02/03/23 release Fish Oil 1 cap PO DAILY 02/09/22 02/03/23 Iron 65 mg PO DAILY 02/09/22 02/03/23 bupropion HCl 300 mg 24 hr tablet, 300 mg PO DAILY 02/03/23 02/03/23 extended release pantoprazole 40 mg tablet,delayed 40 mg PO DAILY 02/03/23 02/03/23 release Allergies Allergy/AdvReac Type Severity Reaction Status Date / Time STEVEN Inhibitors Allergy Intermediate Hives Verified 02/03/23 10:05 lisinopril Allergy Mild Hives / Verified 02/03/23 10:05 Red Face adhesive tape AdvReac Mild Itching Verified 02/03/23 10:13 Review of Systems Review of Systems: Pertinent positives per HPI. Patient denies any fever, chills, rash, headache, visual changes, dizziness, cough, runny nose, sore throat, shortness of breath, chest pain, palpitations, nausea, vomiting, diarrhea, constipation, abdominal pain PMFSH Past Medical History Medical History Carpal tunnel syndrome Clostridium difficile infection Gastroesophageal reflux disease History of benign breast biopsy Hyperlipidemia Hypertension Osteoporosis Spinal stenosis Squamous cell skin cancer Type 2 diabetes mellitus Surgical History Surgical History History of arthroplasty of right hip (05/10/21) History of carpal tunnel surgery of left wrist (03/2021) History of carpal tunnel surgery of right wrist (1998) History of colonoscopy with polypectomy History of laparoscopic cholecystectomy (1998) History of squamous cell carcinoma excision From the right forearm. History of surgical removal of ganglion cyst Right thumb and left wrist. History of total left hip arthroplasty (~03/04/19) Status post dilatation of esophageal stricture Family History Family History Father Family history of Parkinson's disease Diabetes mellitus, Onset Age: 92 Mother Family history of Alzheimer's disease Family history of malignant neoplasm of breast in first degree relative Patient's mother is Other Family history of arthritis Family history of gout Social History Social History Social History: Surrogate decision-maker: Filemon Aggarwal, son. Code status: Full code. Smoking packs per day: 0.5 Smoking cigarettes per day: 10.0 Years smoked: 60 Smoking pack-years: 30.00 Smoking status: Former smoker Tobac
[2023-02-03 10:07] VITALS: BP 142/76; PULSE 90; RESP 16; TEMP 37.1; O2SAT 99
== END 2023-02-03 10:45 | disposition home or self-care (01) ==
PROVIDERS: Emergency Provider Nurse Practitioner Family; PCP Physician Assistant
DX: N39.0 Urinary tract infection, site not specified (principal); I10 Essential (primary) hypertension; K21.9 Gastro-esophageal reflux disease without esophagitis; E78.5 Hyperlipidemia, unspecified; E11.9 Type 2 diabetes mellitus without complications; Z87.891 Personal history of nicotine dependence
CPT/HCPCS: 81003; 87086; 99213; G0463

== ENCOUNTER 2023-09-29 08:22 | Outpatient (CLI) | payer OTHER, SELFPAY ==
--- NOTE | ~2023-09-29 | MM_ITS ---
EXAMINATION: MM screening sharon BI w [place] HISTORY: Screening mammogram TECHNIQUE: Craniocaudal and mediolateral oblique 3-D tomosynthesis images were obtained and synthetic 2-D images were generated. CAD analysis was submitted and interpreted. COMPARISON: 09/26/2022, 09/23/2021, 09/21/2020 BREAST PARENCHYMAL COMPOSITION:Not Dense. The breasts are almost entirely fatty FINDINGS: No suspicious mass, calcification, or architectural distortion are identified in either javy ast to suggest malignancy. There has been no suspicious interval change. IMPRESSION: No mammographic evidence of malignancy. Recommend routine screening mammography in one year. BI-RADS Category 1: Negative Reviewed, dictated and finalized at location .
== END 2023-09-29 08:23 | disposition home or self-care (01) ==
LOC: ANHIMG 08:23
PROVIDERS: PCP Physician Assistant; Visit Provider Obstetrics & Gynecology
DX: Z12.31 Encounter for screening mammogram for malignant neoplasm of breast (principal)
CPT/HCPCS: 77063; 77067

== ENCOUNTER 2024-10-09 14:17 | Outpatient (CLI) | payer OTHER, SELFPAY ==
--- NOTE | ~2024-10-09 | MM_ITS ---
EXAMINATION: MM screening [facility] [place] HISTORY: Screening TECHNIQUE: Craniocaudal and mediolateral oblique 3-D tomosynthesis images were obtained and synthetic 2-D images were generated. CAD analysis was submitted and interpreted. COMPARISON: Comparison to multiple prior studies sequentially, with oldest reviewed study dated 09/13. BREAST PARENCHYMAL COMPOSITION: Not dense: There are scattered areas of fibroglandular density. FINDINGS: There is no evidence of suspicious mass, calcification, or architectural distortion to sugg est malignancy in either breast. There has been no suspicious interval change. IMPRESSION: 1. No mammographic evidence of malignancy. 2. Recommend routine screening mammography in one year. BI-RADS Category 1: Negative Reviewed, dictated and finalized at location A.
--- OUTSIDE RECORDS SUMMARY | 2024-10-09 14:22 | XMS_ITS | Encounter Summary ---
Author Organization [facility] Facility Care Team Providers Care Optical Manufacturing Technician Name Role Phone Arely Livingston Primary Care Provider [phone] Arely Livingston Primary Care Provider + [phone] Arely Livingston Unavailable [phone] Sultan Lai Valdes MD Unavailable [phone] Sultan Lai Valdes MD Unavailable [phone] Kristofer Watters MD Unavailable [phone] Nancy Bray MA Unavailable Allyssa Rashid MA Unavailable [phone] Encounter Details Date Type Department Care Team (Latest Contact Info) Description 03/20/2018 Orders Only [facility] CLINCONV Provider, MD Nickolas [address] [place] [id number] Social History Tobacco Use Types Packs/Day Years Used Date Smoking Tobacco: Never Assessed Comments Unknown Sex and Gender Information Value Date Recorded Sex Assigned at Not on file Legal Sex Female 2:35 AM HAND BOOTMAKER Gender Identity Not on file Sexual Orientation Not on file documented as of this encounter Plan of Treatment Not on file documented as of this encounter Procedures Procedure Name Priority Date/Time Associated Diagnosis Comments SCAN - LABS 03/25/2018 12:00 AM CDT documented in this encounter Results * SCAN - LABS (03/25/2018 12:00 AM CDT) Narrative 03/25/2018 12:00 AM CDT Ordered by an unspecified provider. us Historical Provider Final Res ult documented in this encounter Visit Diagnoses Not on filedocumented in this encounter Additional Health Concerns Infection Onset Date Last Indicated Resolved Time COVID: Suspected 05/06/2020 05/06/2020 05/06/2020 11:20 PM HAND BOOTMAKER Respiratory Infection (CHEN), contact + droplet Comment:Automatically added due to negative COVID-19 result. 05/06/2020 05/06/2020 05/20/2020 3:0 7 AM HAND BOOTMAKER documented as of this encounter Care Teams Optical Manufacturing Technician Relationship Specialty Start Date End Date Arely Livingston PA [address] [place] [address] PCP - General Internal Medicine 10/19/18 02/05/19 Arely Livingston PA [address] [place] [address] PCP - General 02/06/19 Arely Livingston PA [address] [place] [address] Internal Medicine 02/06/19 Sultan Lai Valdes MD [address] [address] Report Analyst Cardiovascular Disease 01/31/19 Sultan Lai Valdes MD [address] [place] [address] Consulting Physician Cardiovascular Disease 02/07/19 Kristofer Watters MD [address] [place] [address] Consulting Physician Plastic Surgery 08/16/21 Nancy Bray MA [address] [place] [address] ACO Care International Trade Manager 02/10/22 02/10/22 Allyssa Rashid MA [address] [place] [address] ACO Care International Trade Manager 02/05/23 02/05/23 documented as of this encounter
--- OUTSIDE RECORDS SUMMARY | 2024-10-09 14:22 | XMS_ITS ---
Author Organization [facility] [address] Address [address] [address] Care Team Providers Care Acls Nurse Name Role Phone Arely Livingston Primary Care Provider + [phone] Arely Livingston Unavailable [phone] Sultan Lai Valdes MD Unavailable [phone] Sultan Lai Valdes MD Unavailable [phone] Kristofer Watters MD Unavailable [phone] Active Problems Problem Noted Date Diagnosed Date Haydee infection of genital region 09/11/2024 Skin lesion of right lower extremity 09/11/2024 Assessment & Plan (09/11/2024 11:39 AM CDT): Small area of irritation and excoriation to the the right leg just under the buttocks that has been present for almost a year. It is not tender to the touch but is painful with movement or sitting down on the toilet. Unlikely to be shingles due to duration and pain distribution. More likely to be irritation from the uncomfortable location it is at and potential irritation from underwear band. Clobetasol has provided relief. Vaginal irritation 09/11/2024 Hyperkalemia 08/17/2024 Assessment & Plan (08/17/2024 3:44 AM CDT): Recheck CMP Medicare annual wellness visit, subsequent 08/17 Assessment & Plan (08/17/2024 3:44 AM CDT): Encouraged healthy lifestyle, good nutrition and exercise. Encouraged Calcium and Vitamin D and weight bearing exercise for bone health. Reviewed immunizations. Reviewed age appropirate screenings. Medicare Wellness Documentation is completed within the chart BMI 27.0-27.9,adult 08/06/2024 Assessment & Plan (09/11/2024 9:56 AM CDT): Weight/BMI is in healthy range. Continue healthy lifestyle to maintain. Assessment & Plan (08/06/2024 9:36 AM CDT): BMI Follow-up includes: Discussed diet and exercising counseling. Vulvar atrophy 01/20/2024 Assessment & Plan (08/17/2024 3:42 AM CDT): Patient is using nystatin powder and cream as needed for rash and irritation. Assessment & Plan (01/20/2024 10:48 PM CDT): Patient's symptoms seem most consistent with vulvar atrophy. Will have her stop all the products she may be having more irritation with the products than anything else. Start Estrace vaginal cream 1 applicator full nightly x2 weeks and then 2 to 3 times a week as needed. May use on the outside in addition until this area continues to improve. Advised may take months for the estrogen to really result in change but if her symptoms worsen or she notices new symptoms will send her to envelope cutter. She is in agreement with the plan Primary insomnia 04/11/2023 Assessment & Plan (08/17/2024 3:41 AM CDT): Continue with trazodone Assessment & Plan (12/11/2023 10:23 AM CDT): Doing well with trazodone Assessment & Plan (04/11/2023 10:08 AM FX ARTIST): This is a significant, separately identifiable problem that was evaluated and managed on the same day as the wellness exam Patient currently on Cymbalta and Wellbutrin. States they definitely help with her symptoms but with increased stressors at home definitely having difficulty sleeping. Will add trazodone 50 mg HS 1-3 hours before bedtime. Reviewed risks benefits alternatives side effects and proper use. Symptoms worsen or does not seem to be enough she may call and will consider increasing the dose. Cigarette smoker 12/24/2022 Assessment & Plan (08/17/2024 3:41 AM CDT): Encouraged smoking cessation. Discussed 3 minutes. Reviewed options for assistance with cessation. 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 Pt declines assistance at this time but may contact the office at anytime for further help as they desire. Assessment & Plan (03/24/2024 1:38 PM CDT): Encouraged smoking cessation. Discussed 3 minutes. Reviewed options for assistance with cessation. 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 Pt declines assistance at this time but may contact the office at anytime for further help as they desire. Assessment & Plan (12/11/2023 10:23 AM CDT): Encouraged smoking cessation. Discussed 3 minutes. Reviewed options for assistance with cessation. Reviewed shelter sequela associated with smoking. Pt declines assistance at this time but may contact the office at anytime for further help as they desire. Assessment & Plan (08/17/2023 9:30 PM CDT): Encouraged smoking cessation. Discussed 3 minutes. Reviewed options for assistance with cessation. Reviewed shelter sequela associated with smoking. Pt declines assistance at this time but may contact the office at anytime for further help as they desire. Assessment & Plan (04/11/2023 9:57 AM FX ARTIST): Encouraged smoking cessation. Discussed 3 minutes. Reviewed options for assistance with cessation. 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 Pt declines assistance at this time but may contact the office at anytime for further help as they desire. She is not interested in further assistance. She is already on Wellbutrin XL 300 Assessment & Plan (12/24/2022 9:21 PM CDT): Encouraged smoking cessation. Discussed 3 minutes. Reviewed options for assistance with cessation. 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 Pt declines assistance at this time but may contact the office at anytime for further help as they desire. Postcoital UTI 04/10/2022 Assessment & Plan (04/11/2022 8:42 AM FX ARTIST): Continue with antibiotics after intercourse Assessment & Plan (04/10/2022 10:45 AM FX ARTIST): -Doing well with macrobid post intercourse. Has not had any issues with UTI since starting this. -Denies side effects. PLAN: -Continue post coital macorbid. -F/U in 1 year or sooner if issues arise. Dysphagia 02/16/2022 Overview (02/16/2022): Added automatically from request for surgery [id number] Assessment & Plan (04/24/2022 7:58 AM FX ARTIST): Dysphagia resolved since EGD with dilation. EGD biopsies negative for EOE. Modified barium swallow unremarkable. -repeat EGD with dilation as needed Assessment & Plan (02/16/2022 8:22 AM CDT): Patient had 2 episodes of dysphagia to water and the juice from an apple since last visit. EGD biopsies negative for EOE. -we will order modified barium swallow to evaluate for oropharyngeal dysphagia -we will consider dilation with next EGD PUD (peptic ulcer disease) 01/17/2022 Overview (01/17/2022): 12/2021 - Dr. Philip No NSAIDs. Repeat EGD in 02/2022 Assessment & Plan (04/24/2022 7:59 AM FX ARTIST): Noted on EGD in December of 2021 - 2.5 cm circumferential clean based ulcer in the antrum near the pyloric channel, biopsies negative for H pylori. Suspect secondary to NSAID use. Repeat EGD March 2022 with healed ulcer. Patient has stopped NSAID use. -avoid NSAIDs -continue PPI daily Assessment & Plan (02/16/2022 8:29 AM CDT): Noted on EGD in December of 2021 - 2.5 cm circumferential clean based ulcer in the antrum near the pyloric channel, biopsies negative for H pylori. Suspect secondary to NSAID use. Patient is still taking ibuprofen every day. -strongly advised patient to stop ibuprofen use; advised patient to discuss with PCP alternatives -avoid all other NSAIDs -patient is currently taking pantoprazole 20 mg p.o. daily, advised patient to take the increased dose of pantoprazole 40 mg p.o. b.i.d. -repeat EGD in 2 months to assess ulcer healing Glaucoma 01/11/2022 Sigmoid thickening 01/05/2022 Assessment & Plan (04/24/2022 7:59 AM FX ARTIST): Abnormal CT scan November of 2021 showing mild segmental thickening of the sigmoid colon without obstruction. Colonoscopy December of 2021 with no thickening noted in the sigmoid colon. Assessment & Plan (02/16/2022 8:22 AM CDT): Abnormal CT scan November of 2021 showing mild segmental thickening of the sigmoid colon without obstruction. Colonoscopy December of 2021 with no thickening noted in the sigmoid colon. Assessment & Plan (01/05/2022 9:26 AM CDT): Abnormal CT scan December 14, 2021 showing mild segmental thickening of the sigmoid colon without obstruction. I personally reviewed and interpreted the patient's last colonoscopy report from April [address] Schmitz notable for internal hemorrhoids, otherwise unremarkable. -schedule colonoscopy to further evaluate thickening of the sigmoid colon -The risks (risks of bleeding, infection, perforation requiring surgery, missed polyps/cancer, dental injury, aspiration pneumonia, anesthesia complications such as drug reaction and cardiopulmonary complications including rare chance of ), benefits, and alternatives of the planned procedure were explained to the patient who understands and consents to having procedure done. Anxiety 12/14/2021 Assessment & Plan (08/17/2024 3:41 AM CDT): Symptoms are stable with Wellbutrin and Cymbalta Assessment & Plan (12/11/2023 10:23 AM CDT): Symptoms are stable with Cymbalta and Wellbutrin. Using trazodone to sleep Assessment & Plan (04/11/2022 8:36 AM FX ARTIST): Stable with Wellbutrin and Cymbalta Assessment & Plan (12/14/2021 5:18 PM CDT): Situational at this time. She declines medication adjustment at this time. Hiatal hernia 12/14/2021 Assessment & Plan (12/14/2021 5:17 PM CDT): History of per patient Will evaluate further on ct abd Neoplasm of uncertain behavior of skin Overview (08/10/2021): Added automatically from request for surgery [id number] Facial skin lesion 08/05/2021 Assessment & Plan (08/05/2021 11:39 PM FX ARTIST): Facial skin lesion on the protestant on the left side. Ingrowing. Will refer to Dermatology for probable excision. DNR (do not resuscitate) 08/04/2021 Overview (08/04/2021): Patient brought POLST form and completed as a DNR at 08/04/2021 visit. She received it in the packet from [facility] as she plans to donate her body for [employer] cadaver use. Assessment & Plan (08/05/2021 11:37 PM FX ARTIST): Patient brought and POLST completed as DNR. I reviewed confirm that these are her wishes. I cosigned long with a Witness and original wrist return to her with a copy in her chart. Carpal tunnel syndrome on left 12/16/2020 Overview (12/16/2020): Added automatically from request for surgery [id number] Moderate episode of recurrent major depressive d isorder 11/04/2020 Assessment & Plan (08/17/2024 3:41 AM CDT): Symptoms are stable with Cymbalta and Wellbutrin. Assessment & Plan (12/11/2023 10:22 AM CDT): Symptoms are stable with Cymbalta and Wellbutrin. Using trazodone to help with sleep Assessment & Plan (04/11/2023 9:56 AM FX ARTIST): Patient currently on Cymbalta and Wellbutrin. States they definitely help with her symptoms but with increased stressors at home definitely having difficulty sleeping. Will add trazodone 50 mg HS 1-3 hours before bedtime. Reviewed risks benefits alternatives side effects and proper use. Symptoms worsen or does not seem to be enough she may call and will consider increasing the dose. Assessment & Plan (09/16/2022 10:35 PM CDT): Stable with Cymbalta and Wellbutrin Assessment & Plan (04/11/2022 8:35 AM FX ARTIST): Continue Wellbutrin and Cymbalta as symptoms are stable Assessment & Plan (08/05/2021 11:36 PM FX ARTIST): Continue Cymbalta and Wellbutrin Assessment & Plan (04/24/2021 6:51 PM FX ARTIST): Continue Wellbutrin and Cymbalta Assessment & Plan (11/04/2020 5:41 PM CDT): Seeing improvement but will increase to Cymbalta 60mg to see a little more effect. New Rx sent. F.u in a few months to reassess or sooner problems/concerns. Vulvar irritation 10/21/2020 Assessment & Plan (09/11/2024 11:38 AM CDT): History of candidal infections in the groin area. Currently being treated with nystatin cream and powder but she is almost out of the cream. Assessment & Plan (03/24/2024 1:39 PM CDT): Patient followed up with Dr. Gates, [employer] and is on clobetasol and states symptoms are tolerable. Continue per his recommendations. Assessment & Plan (01/07/2024 9:19 PM CDT): Has used diflucan and noted improvement, not fully resolved Will try kenalog ointment to the area. If symptoms persist, may need a bx to the area vs estrogen Assessment & Plan (12/11/2023 10:22 AM CDT): This is a significant, separately identifiable problem that was evaluated and managed on the same day as the wellness exam Patient has tinea occurs as well as vulvar irritation. She has been using nystatin cream without much improvement. She does not have any white discoloration it is mostly seen with lichen sclerosis. No lesions or sores. Diflucan 150 mg 1 today 1 on day 3 and 1 on day 5. Stop the nystatin cream. Will transition to Lotrisone cream. Keep the area clean and dry. If symptoms worsen may consider biopsy. Assessment & Plan (11/04/2020 5:41 PM CDT): Await pathology from Dr. Cloud. She is currently on Clobetasol. Will monitor. Assessment & Plan (10/21/2020 6:42 PM CDT): Continue with cotton underwear, washing bid Will refer to yard inspector for further evaluation and treatment Tinea cruris 09/19/2020 Assessment & Plan (12/11/2023 10:19 AM CDT): This is a significant, separately identifiable problem that was evaluated and managed on the same day as the wellness exam Patient has tinea occurs as well as vulvar irritation. She has been using nystatin cream without much improvement. She does not have any white discoloration it is mostly seen with lichen sclerosis. No lesions or sores. Diflucan 150 mg 1 today 1 on day 3 and 1 on day 5. Stop the nystatin cream. Will transition to Lotrisone cream. Keep the area clean and dry. If symptoms worsen may consider biopsy. Assessment & Plan (02/11/2022 11:04 AM CDT): Reminded patient to keep area clean and dry. May even use had cool hair cloth drier after she gets out of the shower. Nystatin as available. Assessment & Plan (04/24/2021 6:50 PM FX ARTIST): Continue nystatin p.r.n. Assessment & Plan (11/24/2020 4:58 PM CDT): She will dc certirizine while taking atarax. She was reminded the atarax can make her drowsy and to use with caution, not to drive for 6h after taking. Advised f/u in 1w if not improving, sooner if worsening. Assessment & Plan (09/19/2020 11:38 PM CDT): Keep area clean and dry. Dry with hair cloth drier on cool and then apply Lotrisone to the area twice a day until resolved. If symptoms worsen or do not resolve she is to contact the office Vertigo 09/04/2020 Assessment & Plan (09/16/2022 10:34 PM CDT): Patient with vertigo. Responds well to meclizine. Refills provided Assessment & Plan (04/01/2022 9:28 PM CDT): Patient with symptoms that seem most consistent with vertigo. Ears are clear. Encouraged Flonase Mucinex and antihistamine. Continue to monitor closely. If she begins to run fever have purulent drainage/rhinorrhea or increase in her poor balance she is to call. Offered meclizine and she declined at this point Assessment & Plan (08/05/2021 11:36 PM FX ARTIST): Continue meclizine p.r.n. Assessment & Plan (09/04/2020 11:01 PM CDT): Persistent sxs that continue to respond promptly to meclizine but not fully resolving.. Will refer to vestibular therapy. If sxs persist will consider imaging brain. OA (osteoarthritis) of finger, left 05/26/2020 Assessment & Plan (05/26/2020 8:46 AM FX ARTIST): Will assess further with RA factor. Discussed ortho referral - she wants to wait and see if it continues. History of total hip replacement, left 9 Assessment & Plan (05/13/2019 8:28 PM FX ARTIST): Continue PT as directed by Ortho Heart murmur, systolic 02/06/2019 Assessment & Plan (12/18/2019 7:57 AM CDT): Had cardiac workup and cleared after ECHO and Lexiscan. Will monitor. Assessment & Plan (02/06/2019 9:46 AM CDT): Will obtain an echo Doppler study to evaluate the murmur. Type 2 diabetes mellitus with hyperlipidemia Assessment & Plan (08/17/2024 3:38 AM CDT): Encouraged patient to follow low fat/low chol diet like the Mediterranean diet. Increase good fats in the diet. Increase exercise. Monitor labs as needed. Continue simvastatin Assessment & Plan (12/11/2023 10:17 AM CDT): Encouraged patient to follow low fat/low chol diet like the Mediterranean diet. Increase good fats in the diet. Increase exercise. Monitor labs as needed. Continue simvastatin Assessment & Plan (04/11/2023 9:56 AM FX ARTIST): Stressed importance of continued A1c control to minimize the shelter effects of diabetes. Bring accuchecks to office when instructed to do so. Check A1c about every 3-6 months. Take medication as prescribed. Get annual eye exam. Encouraged STEVEN/Statin if able to tolerate. Encouraged weight control and encouraged diabetic diet and exercise. Encouraged patient to follow low fat/low chol diet like the Mediterranean diet. Increase good fats in the diet. Increase exercise. Monitor labs as needed. A1c is tightly controlled at 6.1. Continue metformin 500 b.i.d.. Continue statin Assessment & Plan (09/16/2022 10:34 PM CDT): Stressed importance of continued A1c control to minimize the termite renewal inspector effects of diabetes. Bring accuchecks to office when instructed to do so. Check A1c about every 3-6 months. Take medication as prescribed. Get annual eye exam. Encouraged STEVEN/Statin if able to tolerate. Encouraged weight control and encouraged diabetic diet and exercise. Encouraged patient to follow low fat/low chol diet like the Mediterranean diet. Increase good fats in the diet. Increase exercise. Monitor labs as needed. Await labs to determine control. Continue metformin 500 b.i.d. and statin Assessment & Plan (04/23/2022 10:05 AM FX ARTIST): Stressed importance of continued A1c control to minimize the termite renewal inspector effects of diabetes. Bring accuchecks to office when instructed to do so. Check A1c about every 3-6 months. Take medication as prescribed. Get annual eye exam. Encouraged STEVEN/Statin if able to tolerate. Encouraged weight control and encouraged diabetic diet and exercise. Insert hyperlipidemia continue statin DM tightly controlled. Assessment & Plan (04/11/2022 8:34 AM FX ARTIST): Stressed importance of continued A1c control to minimize the termite renewal inspector effects of diabetes. Bring accuchecks to office when instructed to do so. Check A1c about every 3-6 months. Take medication as prescribed. Get annual eye exam. Encouraged STEVEN/Statin if able to tolerate. Encouraged weight control and encouraged diabetic diet and exercise. Continue statin Assessment & Plan (08/05/2021 11:34 PM FX ARTIST): Encouraged patient to follow low fat/low chol diet like the Mediterranean diet. Increase good fats in the diet. Increase exercise. Monitor labs as needed. Continue statin Assessment & Plan (04/24/2021 6:49 PM FX ARTIST): Encouraged patient to follow fat/low chol diet like the Mediterranean diet. Increase good fats in the diet. Increase exercise. Monitor labs as needed. Continue statin Assessment & Plan (10/18/2020 12:32 AM CDT): Encouraged patient to follow fat/low chol diet like the Mediterranean diet. Increase good fats in the diet. Increase exercise. Monitor labs as needed. Continue statin Assessment & Plan (04/01/2020 9:28 AM FX ARTIST): Stressed importance of continued A1c control to minimize the shelter effects of diabetes. Bring accuchecks to office when instructed to do so. Check A1c about every 3-6 months. Take medication as prescribed. Get annual eye exam. Encouraged STEVEN/Statin if able to tolerate. Encouraged weight control and encouraged diabetic diet and exercise. Continue statin. Encouraged patient to follow fat/low chol diet like the Mediterranean diet. Increase good fats in the diet. Increase exercise. Monitor labs as needed. [ Assessment & Plan (12/18/2019 7:51 AM CDT): Stressed importance of continued A1c control to minimize the termite renewal inspector effects of diabetes. Bring accuchecks to office when instructed to do so. Check A1c about every 3-6 months. Take medication as prescribed. Get annual eye exam. Encouraged STEVEN/Statin if able to tolerate. Continue Metformin Encouraged weight control and encouraged diabetic diet and exercise. Encouraged patient to continue low fat/low chol diet. Continue exercise. Increase good fats in the diet. Monitor labs as needed. Continue statin Assessment & Plan (05/13/2019 8:27 PM FX ARTIST): Encouraged patient to continue low fat/low chol diet. Continue exercise. Increase good fats in the diet. Monitor labs as needed. Stressed importance of continued A1c control to minimize the termite renewal inspector effects of diabetes. Bring accuchecks to office when instructed to do so. Check A1c about every 3-6 months. Take medication as prescribed. Get annual eye exam. Encouraged STEVEN/Statin if able to tolerate. Encouraged weight control and encouraged diabetic diet and exercise. Assessment & Plan (12/24/2018 9:49 PM CDT): Stressed importance of continued A1c control to minimize the termite renewal inspector effects of diabetes. Bring accuchecks to office when instructed to do so. Check A1c about every 3-6 months. Take medication as prescribed. Get annual eye exam. Encouraged STEVEN/Statin if able to tolerate. Encouraged weight control and encouraged diabetic diet and exercise. Continue metformin Encouraged patient to continue low fat/low chol diet. Continue exercise. Increase good fats in the diet. Monitor labs as needed. Assessment & Plan (09/09/2018 9:08 AM CDT): This is a significant, separately identifiable problem that was evaluated and managed on the same day as the wellness exam Encouraged patient to continue low fat/low chol diet. Continue exercise. Increase good fats in the diet. Monitor labs as needed. Continue statin. Encouraged tight control of co-morbidities. See individual dx for plan. History of Mohs surgery for squamous cell carcin mihir of skin 09/09/2018 Overview (09/09/2018): 06/13/2018 - MOHS by Dr. Rowland Assessment & Plan (12/24/2018 9:50 PM CDT): 05/[address] Duong Assessment & Plan (09/09/2018 9:09 AM CDT): Healed well. Monitor skin exams. Herpes zoster without complications 08/26/2018 Assessment & Plan (09/09/2018 9:09 AM CDT): No current rash. Monitor Squamous cell carcinoma of skin, unspecified Iron deficiency anemia due to chronic blood loss 05/08/2018 Assessment & Plan (04/11/2023 9:55 AM FX ARTIST): Continue with iron supplementation. Due to check labs Assessment & Plan (04/01/2020 9:28 AM FX ARTIST): Appears to have stabilized. May hold the iron supplement Assessment & Plan (12/18/2019 7:51 AM CDT): Recheck CBC. She is still supplementing. Assessment & Plan (12/24/2018 9:49 PM CDT): Continue to supplement. Monitor labs Assessment & Plan (09/09/2018 9:09 AM CDT): This is a significant, separately identifiable problem that was evaluated and managed on the same day as the wellness exam Check labs for stablity Gastroesophageal reflux disease 05/08/2018 Assessment & Plan (12/11/2023 10:17 AM CDT): Continue PPI p.r.n. Stable with PPI p.r.n. Assessment & Plan (04/11/2023 9:56 AM FX ARTIST): Continue PPI p.r.n. Assessment & Plan (04/24/2022 8:04 AM FX ARTIST): Chronic, taking pantoprazole daily -PPI daily -RECOMMENDATIONS given include: anti-reflux maneuvers, Avoid acidic foods like oranges and tomatoes., avoidance of spicy foods, avoid eating 3-4 hours before bed, elevation of the head of the bed, and weight loss Assessment & Plan (04/23/2022 10:06 AM FX ARTIST): Continue PPI and Pepcid p.r.n.. Has EGD and colonoscopy scheduled [address] Philip Assessment & Plan (04/11/2022 8:34 AM FX ARTIST): Continue PPI p.r.n. Assessment & Plan (02/16/2022 8:23 AM CDT): Chronic, taking pantoprazole 20 mg p.o. daily -increase pantoprazole 40 mg p.o. b.i.d. for ulcer healing, then we will decrease back to once a day -RECOMMENDATIONS given include: anti-reflux maneuvers, Avoid acidic foods like oranges and tomatoes., avoidance of spicy foods, avoid eating 3-4 hours before bed, elevation of the head of the bed, and weight loss Assessment & Plan (01/05/2022 9:21 AM CDT): Chronic takes PPI daily. Uses Tums p.r.n.. -continue PPI daily, start Pepcid OTC p.r.n. -RECOMMENDATIONS given include: anti-reflux maneuvers, Avoid acidic foods like oranges and tomatoes., avoidance of spicy foods, avoid eating 3-4 hours before bed, elevation of the head of the bed, and weight loss Assessment & Plan (12/14/2021 5:17 PM CDT): She will change prilosec to protonix. Advised cutting back on tobacco, caffeine, acidic/spicy foods. Assessment & Plan (08/05/2021 11:35 PM FX ARTIST): Continue PPI Assessment & Plan (10/18/2020 12:31 AM CDT): Continue PPI Assessment & Plan (04/01/2020 9:27 AM FX ARTIST): Continue PPI Assessment & Plan (12/18/2019 7:50 AM CDT): Stable with PPI and prn Reglan Assessment & Plan (02/26/2019 9:30 AM CDT): Symptoms still seem most consistent with reflux. Change the Protonix to before dinner and and add Pepcid in am which she can get [id number]. Decrease her coffee in the morning. Continue to monitor closely and if she has increased symptoms, hematemesis, or changes in her stool she is to call sooner. If it continues to persist may need to refer back to GI to scope. Assessment & Plan (12/24/2018 9:52 PM CDT): Stable with PPI Sciatica of left side 12/07/2017 Primary osteoarthritis of left knee 11/09/2017 Assessment & Plan (12/24/2018 9:54 PM CDT): NSAIDs prn Assessment & Plan (09/09/2018 9:07 AM CDT): This is a significant, separately identifiable problem that was evaluated and managed on the same day as the wellness exam Using Pain Magagement topicals. Check xrays as has been a few years. Will probably benefit from followup with Ortho to determine next step with her OA/sxs. Primary osteoarthritis of right knee 11/09/2017 Assessment & Plan (12/24/2018 9:53 PM CDT): NSAIDs prn Assessment & Plan (09/09/2018 9:07 AM CDT): This is a significant, separately identifiable problem that was evaluated and managed on the same day as the wellness exam Using Pain Magagement topicals. Check xrays as has been a few years. Will probably benefit from followup with Ortho to determine next step with her OA/sxs. Hypertension associated with diabetes 11/07/2017 Assessment & Plan (08/17/2024 3:40 AM CDT): Bp is stable/in acceptable range for any co-morbidities. Encouraged to limit sodium intake and exercise for weight control. Continue losartan 50 Assessment & Plan (03/24/2024 1:39 PM CDT): Bp is stable/in acceptable range for any co-morbidities. Encouraged to limit sodium intake and exercise for weight control. Stressed importance of continued A1c control to minimize the shelter effects of diabetes. Bring accuchecks to office when instructed to do so. Check A1c about every 3-6 months. Take medication as prescribed. Get annual eye exam. Encouraged STEVEN/Statin if able to tolerate. Encouraged weight control and encouraged diabetic diet and exercise. Continue Metofrmin 500mg 1/2 tab bid and losartan Assessment & Plan (12/11/2023 10:17 AM CDT): Bp is stable/in acceptable range for any co-morbidities. Encouraged to limit sodium intake and exercise for weight control. Stressed importance of continued A1c control to minimize the shelter effects of diabetes. Bring accuchecks to office when instructed to do so. Check A1c about every 3-6 months. Take medication as prescribed. Get annual eye exam. Encouraged STEVEN/Statin if able to tolerate. Encouraged weight control and encouraged diabetic diet and exercise. Continue Losartan 50 Diabetes is well controlled with the last A1c 6.1. Continue metformin 500 b.i.d. Assessment & Plan (04/11/2023 9:56 AM FX ARTIST): Bp is stable/in acceptable range for any co-morbidities. Encouraged to limit sodium intake and exercise for weight control. Stable with losartan 50 Assessment & Plan (09/16/2022 10:34 PM CDT): Bp is stable/in acceptable range for any co-morbidities. Encouraged to limit sodium intake and exercise for weight control. Continue losartan Assessment & Plan (04/23/2022 10:04 AM FX ARTIST): Bp is stable/in acceptable range for any co-morbidities. Encouraged to limit sodium intake and exercise for weight control. Continue losartan Assessment & Plan (04/11/2022 8:34 AM FX ARTIST): Bp is stable/in acceptable range for any co-morbidities. Encouraged to limit sodium intake and exercise for weight control. Continue losartan Assessment & Plan (08/05/2021 11:34 PM FX ARTIST): Bp is stable/in acceptable range for any co-morbidities. Encouraged to limit sodium intake and exercise for weight control. Continue losartan Assessment & Plan (04/24/2021 6:49 PM FX ARTIST): Bp is stable/in acceptable range for any co-morbidities. Encouraged to limit sodium intake and exercise for weight control. Continue losartan Assessment & Plan (10/18/2020 12:31 AM CDT): Bp is stable/in acceptable range for any co-morbidities. Encouraged to limit sodium intake and exercise for weight control. Continue losartan Assessment & Plan (04/01/2020 9:27 AM FX ARTIST): Bp is stable/in acceptable range for any co-morbidities. Encouraged to limit sodium intake and exercise for weight control. Continue losartan Assessment & Plan (12/18/2019 7:49 AM CDT): Bp is stable/in acceptable range for any co-morbidities. Encouraged to limit sodium intake and exercise for weight control. Stressed importance of continued A1c control to minimize the shelter effects of diabetes. Bring accuchecks to office when instructed to do so. Check A1c about every 3-6 months. Take medication as prescribed. Get annual eye exam. Encouraged STEVEN/Statin if able to tolerate. Encouraged weight control and encouraged diabetic diet and exercise. Assessment & Plan (05/13/2019 8:22 PM FX ARTIST): Bp is stable/in acceptable range for any co-morbidities. Encouraged to limit sodium intake and exercise for weight control. Continue the Losartan 50mg Assessment & Plan (12/24/2018 9:47 PM CDT): Bp is stable/in acceptable range for any co-morbidities. Encouraged to limit sodium intake and exercise for weight control. Continue Losartan Assessment & Plan (09/09/2018 9:04 AM CDT): This is a significant, separately identifiable problem that was evaluated and managed on the same day as the wellness exam Bp is stable/in acceptable range for any co-morbidities. Encouraged to limit sodium intake and exercise for weight control. Encouraged tight control of co-morbidities. See individual dx for plan. History of meningioma of the brain 11/07/2017 Overview (10/21/2020): no current epilepsy/seizures Assessment & Plan (02/06/2019 9:45 AM CDT): Resected at [facility] November 2010. Assessment & Plan (12/24/2018 9:49 PM CDT): No change Assessment & Plan (09/09/2018 9:09 AM CDT): No change Osteoporosis without current pathological fractu re 11/07/2017 Assessment & Plan (08/17/2024 3:41 AM CDT): Continue Fosamax of this and calcium. Managed by Dr. Gregg Galvin Assessment & Plan (12/11/2023 10:02 AM CDT): Last DEXA was done August of 2022. Continue Fosamax and Evista as well as calcium supplementation and exercise. Dr. Wolfe, envelope cutter manages Assessment & Plan (04/11/2023 9:57 AM FX ARTIST): Osteoporosis is managed by Dr. Milan her envelope cutter. Continue Fosamax Evista calcium and vitamin-D Assessment & Plan (09/16/2022 10:36 PM CDT): Continue calcium vitamin-D and exercise. Patient is on Fosamax and Evista. Due for DEXA Assessment & Plan (04/11/2022 8:35 AM FX ARTIST): Managed by Dr. Wolfe. 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 Bring accuchecks to office when instructed to do so. Check A1c about every 3-6 months. Take medication as prescribed. Get annual eye exam. Encouraged STEVEN/Statin if able to tolerate. Encouraged weight control and encouraged diabetic diet and exercise. Continue metformin 500 b.i.d. and gabapentin Assessment & Plan (12/11/2023 10:03 AM CDT): Stressed importance of continued A1c control to minimize the shelter effects of diabetes. Bring accuchecks to office when instructed to do so. Check A1c about every 3-6 months. Take medication as prescribed. Get annual eye exam. Encouraged STEVEN/Statin if able to tolerate. Encouraged weight control and encouraged diabetic diet and exercise. Neuropathy is managed with gabapentin. Assessment & Plan (04/11/2023 9:57 AM FX ARTIST): Continue gabapentin. Neuropathy symptoms are stable. Diabetes is tightly controlled. Assessment & Plan (09/16/2022 10:35 PM CDT): Stressed importance of continued A1c control to minimize the shelter effects of diabetes. Bring accuchecks to office when instructed to do so. Check A1c about every 3-6 months. Take medication as prescribed. Get annual eye exam. Encouraged STEVEN/Statin if able to tolerate. Encouraged weight control and encouraged diabetic diet and exercise. 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 Bring accuchecks to office when instructed to do so. Check A1c about every 3-6 months. Take medication as prescribed. Get annual eye exam. Encouraged STEVEN/Statin if able to tolerate. Encouraged weight control and encouraged diabetic diet and exercise. Continue tight control and the gabapentin Current Treatment and Therapy Plans No current plan information found. Past Treatment and Therapy Plans No past plan information found. Lifetime Dose Tracking * Chemical Lifetime Dose Automatic Entry Manual Entr y Fluoro Time 1.1 minutes 1.1 minutes 0 minutes Air kerma at the reference point (Ka,r) 3.2 mGy 3 .2 mGy 0 mGy Resolved Problems Problem Noted Date Diagnosed Date Resolved Date Positive depression screening 08/06/2024 08/17/2024 Need for influenza vaccination 03/24/2024 08/17/2024 Assessment & Plan (03/24/2024 1:40 PM CDT): FLU vaccine updated in the office today Annual physical exam 12/11/2023 024 Assessment & Plan (12/11/2023 10:23 AM CDT): Encouraged healthy lifestyle, good nutrition and exercise. Encouraged Calcium and Vitamin D and weight bearing exercise for bone health. Reviewed immunizations Reviewed age appropirate screenings. Chronic left shoulder pain 08/17/2023 0 12/11/2023 Assessment & Plan (08/17/2023 9:31 PM CDT): Persistent shoulder pain. PT for 6-8 weeks and not result in any significant improvement. Arthritic changes of the AC joint on x-ray. Patient has seen Dr. Atul ernandez in the past for other orthopedic concerns. Would like to see him or 1 of his partners that would best be able to address her shoulder concerns. Referral will be placed BMI 27.0-27.9,adult 04/11/2023 12/26/19 24 Assessment & Plan (12/11/2023 10:23 AM CDT): Weight/BMI is in healthy range. Continue healthy lifestyle to maintain. Assessment & Plan (08/17/2023 9:30 PM CDT): Weight/BMI is in healthy range. Continue healthy lifestyle to maintain. Assessment & Plan (04/11/2023 8:50 AM FX ARTIST): Weight/BMI is in healthy range. Continue healthy lifestyle to maintain. Positive depression screening 04/11/2023 11/18/2023 Assessment & Plan (04/11/2023 9:57 AM FX ARTIST): See depression above for plan BMI 27.0-27.9,adult 12/20/2022 04/11/20 Assessment & Plan (12/20/2022 1:56 PM CDT): Weight/BMI is in healthy range. Continue healthy lifestyle to maintain. Fatigue 09/16/2022 12/11/2023 Assessment & Plan (09/16/2022 10:35 PM CDT): Probably multifactorial. Check labs and followup to re-evaluate Menopause 09/16/2022 04/11/2023 Assessment & Plan (09/16/2022 10:36 PM CDT): Check DEXA BMI 27.0-27.9,adult 09/04/2022 12/21/19 Assessment & Plan (09/04/2022 3:46 PM CDT): Weight/BMI is in healthy range. Continue healthy lifestyle to maintain. Acute pain of left shoulder 05/03/2022 12/11/2023 Assessment & Plan (12/24/2022 9:21 PM CDT): Encouraged NSAIDS (if able to safely tolerate) or Tylenol. Topical preparations like Lidocaine patches, Biofreeze, ICYHOT etc as needed. Heat, stretching Encouraged PT. Followup if has any increased problems. Assessment & Plan (05/14/2022 5:38 PM FX ARTIST): Encouraged Tylenol. Unable to tolerate NSAIDs. Topical preparations like Lidocaine patches, Biofreeze, ICYHOT etc as needed. Heat, stretching Encouraged PT. Order rpvided. Followup ifPT doesn't help as may consider MRI vs referral to Ortho. BMI 26.0-26.9,adult 04/11/2022 09/05/19 23 Overview (04/11/2022): Weight/BMI is in healthy range. Continue healthy lifestyle to maintain. Assessment & Plan (05/14/2022 5:38 PM FX ARTIST): Weight/BMI is in healthy range. Continue healthy lifestyle to maintain. Assessment & Plan (04/23/2022 10:07 AM FX ARTIST): Weight/BMI is in healthy range. Continue healthy lifestyle to maintain. Assessment & Plan (04/11/2022 8:42 AM FX ARTIST): Weight/BMI is in healthy range. Continue healthy lifestyle to maintain. BMI 27.0-27.9,adult 03/16/2022 04/11/20 22 Assessment & Plan (03/16/2022 1:00 PM CDT): Weight/BMI is in healthy range. Continue healthy lifestyle to maintain. BMI 26.0-26.9,adult 01/10/2022 03/16/20 22 Assessment & Plan (01/10/2022 11:41 AM CDT): Weight/BMI is in healthy range. Continue healthy lifestyle to maintain. BMI 26.0-26.9,adult 12/14/2021 01/10/20 24 Assessment & Plan (01/07/2024 9:18 PM CDT): Weight/BMI is in healthy range. Continue healthy lifestyle [id number]|2024-10-09 14:22:00|2024-10-09 14:22:00|XMS_ITS|IZAIAH TEJADA|External Medical Summaries|[id number]|" Clinical Summary Created on: October 09, 2024 Lizett Mixon : 1945 Sex: Female Author Organization [facility] [address] [facility] Address [address] [place] [address] Care Team Providers Care Acls Nurse Name Role Phone Arely Livingston Primary Care Provider [phone] Arely Livingston Unavailable [phone] Sultan Lai Valdes MD Unavailable [phone] Sultan Lai Valdes MD Unavailable [phone] Kristofer Watters MD Unavailable [phone] Allergies Active Allergy Reactions Criticality Noted Date Comments Adhesive Rash Medium 09/16/2021 Lisinopril Hives Medium 09/09/2018 hives Other Blisters High 01/05/2022 Pt reports allergy to dish soap Medications omega-3 fatty acids 1,000 mg capsule 1,000 mg 2 (two) times a day Active vitamins A,C,E-zinc-co pper (ICAPS) [id number] 0 [id number] capsule 2 (two) times a day Active vitamin B comp with C no.4 150 mg tablet Rx: Super B Complex Active calcium carbonate-vit lawler D3 1,250mg (500mg elemental) - 5 mcg (200 units) per tablet Take 1 tablet by mouth daily Active TURMERIC ORAL Take by mouth Ac tive ascorbic acid (VITAMIN C) 500 mg tablet,chewab le 2 tablet/chew tab (1,000 mg total) 2 (two) times a day Active clotrimazole- betamethasone (LOTRISONE) cream Apply topically 2 (two) times a day 45 g 12/10/19 24 Active Additional Information Patient not taking.Reported on 09/11/2024 simvastatin (ZOCOR) 40 mg tablet TAKE 1 TABLET BY MOUTH EVERY DAY AT NIGHT 90 tablet 2 02/04/20 24 Active montelukast (SINGULAIR) 10 mg tablet TAKE 1 TABLET BY MOUTH EVERY DAY 90 tablet 2 02/18/20 24 Active metFORMIN (GLUCOPHAGE) 500 mg tablet Take 0.5 tablets (250 mg total) by mouth 2 (two) times a day with meals 90 tablet 1 03/24/20 24 Active gabapentin (NEURONTIN) 300 mg capsule TAKE 1 CAPSULE BY MOUTH THREE TIMES A DAY 270 capsule 1 05/14/20 24 Active losartan (COZAAR) 50 mg tabletIndicat ions:Hyperten florinda associated with diabetes (HCC) TAKE 1 TABLET BY MOUTH EVERY DAY 90 tablet 1 05/16/20 24 Active raloxifene (EVISTA) 60 mg tablet TAKE 1 TABLET BY MOUTH EVERY DAY 90 tablet 3 05/19/[address] (PROTONIX) 40 mg EC tabletIndicat ions:PUD (peptic ulcer disease) TAKE 1 TABLET BY MOUTH EVERY DAY 90 tablet 1 08/03/19 25 Active albuterol HFA (PROVENTIL HFA,VENTOLIN HFA,PROAIR HFA) 90 mcg/actuation inhaler Inhale 2 puffs every 6 (six) hours as needed for wheezing 1 each 3 08/07/19 25 Active traZODone (DESYREL) 50 mg tablet TAKE 1 TABLET BY MOUTH NIGHTLY NEEDED FOR SLEEP 90 tablet 1 08/14/19 25 Active buPROPion XL (WELLBUTRIN XL) 300 mg 24 hr tablet TAKE 1 TABLET BY MOUTH EVERY DAY IN THE MORNING 90 tablet 1 08/15/19 25 Active alendronate (FOSAMAX) 70 mg tablet TAKE 1 TABLET (70 MG TOTAL) BY MOUTH EVERY 7 DAYS TAKE IN THE MORNING WITH A FULL GLASS OF WATER, ON AN EMPTY STOMACH, AND DO NOT TAKE ANYTHING ELSE BY MOUTH OR LIE DOWN FOR THE NEXT 30 MIN 12 tablet 1 08/25/19 25 Active nystatin, bulk, 1 million unit powder 2 (two) times a day Active nystatin creamIndicati ons:Vulvar irritation Apply topically 2 (two) times a day as needed (Vaginal itching and irritation) 30 g 09/12/19 25 Active clobetasoL (TEMOVATE) 0.05 % creamIndicati ons:Skin lesion of right lower extremity Apply topically 2 (two) times a day 15 g 1 09/12/[address] (CYMBALTA) 60 mg capsule TAKE 1 CAPSULE BY MOUTH EVERY DAY 100 capsule 1 09/29/19 25 Active nystatin creamIndicati ons:Vaginal irritation Apply topically 2 (two) times a day as needed (Vaginal itching and irritation) 30 g 11/08/19 24 025 Discontinued(Re order) DULoxetine DR (CYMBALTA) 60 mg capsule TAKE 1 CAPSULE BY MOUTH EVERY DAY 90 capsule 1 01/31/20 24 025 Discontinued clobetasoL (TEMOVATE) 0.05 % cream APPLY TOPICALLY TO AFFECTED AREA TWICE DAILY 07/05/19 25 025 Discontinued(Re order) Active Problems Problem Noted Date Diagnosed Date Haydee infection of genital region 09/11/2024 Skin lesion of right lower extremity 09/11/2024 Assessment & Plan (09/11/2024 11:39 AM CDT): Small area of irritation and excoriation to the the right leg just under the buttocks that has been present for almost a year. It is not tender to the touch but is painful with movement or sitting down on the toilet. Unlikely to be shingles due to duration and pain distribution. More likely to be irritation from the uncomfortable location it is at and potential irritation from underwear band. Clobetasol has provided relief. Vaginal irritation 09/11/2024 Hyperkalemia 08/17/2024 Assessment & Plan (08/17/2024 3:44 AM CDT): Recheck CMP Medicare annual wellness visit, subsequent 08/17 Assessment & Plan (08/17/2024 3:44 AM CDT): Encouraged healthy lifestyle, good nutrition and exercise. Encouraged Calcium and Vitamin D and weight bearing exercise for bone health. Reviewed immunizations. Reviewed age appropirate screenings. Medicare Wellness Documentation is completed within the chart BMI 27.0-27.9,adult 08/06/2024 Assessment & Plan (09/11/2024 9:56 AM CDT): Weight/BMI is in healthy range. Continue healthy lifestyle to maintain. Assessment & Plan (08/06/2024 9:36 AM CDT): BMI Follow-up includes: Discussed diet and exercising counseling. Vulvar atrophy 01/20/2024 Assessment & Plan (08/17/2024 3:42 AM CDT): Patient is using nystatin powder and cream as needed for rash and irritation. Assessment & Plan (01/20/2024 10:48 PM CDT): Patient's symptoms seem most consistent with vulvar atrophy. Will have her stop all the products she may be having more irritation with the products than anything else. Start Estrace vaginal cream 1 applicator full nightly x2 weeks and then 2 to 3 times a week as needed. May use on the outside in addition until this area continues to improve. Advised may take months for the estrogen to really result in change but if her symptoms worsen or she notices new symptoms will send her to envelope cutter. She is in agreement with the plan Primary insomnia 04/11/2023 Assessment & Plan (08/17/2024 3:41 AM CDT): Continue with trazodone Assessment & Plan (12/11/2023 10:23 AM CDT): Doing well with trazodone Assessment & Plan (04/11/2023 10:08 AM FX ARTIST): This is a significant, separately identifiable problem that was evaluated and managed on the same day as the wellness exam Patient currently on Cymbalta and Wellbutrin. States they definitely help with her symptoms but with increased stressors at home definitely having difficulty sleeping. Will add trazodone 50 mg HS 1-3 hours before bedtime. Reviewed risks benefits alternatives side effects and proper use. Symptoms worsen or does not seem to be enough she may call and will consider increasing the dose. Cigarette smoker 12/24/2022 Assessment & Plan (08/17/2024 3:41 AM CDT): Encouraged smoking cessation. Discussed 3 minutes. Reviewed options for assistance with cessation. Reviewed shelter sequela associated with smoking. Pt declines assistance at this time but may contact the office at anytime for further help as they desire. Assessment & Plan (03/24/2024 1:38 PM CDT): Encouraged smoking cessation. Discussed 3 minutes. Reviewed options for assistance with cessation. Reviewed shelter sequela associated with smoking. Pt declines assistance at this time but may contact the office at anytime for further help as they desire. Assessment & Plan (12/11/2023 10:23 AM CDT): Encouraged smoking cessation. Discussed 3 minutes. Reviewed options for assistance with cessation. Reviewed shelter sequela associated with smoking. Pt declines assistance at this time but may contact the office at anytime for further help as they desire. Assessment & Plan (08/17/2023 9:30 PM CDT): Encouraged smoking cessation. Discussed 3 minutes. Reviewed options for assistance with cessation. 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 Pt declines assistance at this time but may contact the office at anytime for further help as they desire. Assessment & Plan (04/11/2023 9:57 AM FX ARTIST): Encouraged smoking cessation. Discussed 3 minutes. Reviewed options for assistance with cessation. 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 Pt declines assistance at this time but may contact the office at anytime for further help as they desire. She is not interested in further assistance. She is already on Wellbutrin XL 300 Assessment & Plan (12/24/2022 9:21 PM CDT): Encouraged smoking cessation. Discussed 3 minutes. Reviewed options for assistance with cessation. Reviewed shelter sequela associated with smoking. Pt declines assistance at this time but may contact the office at anytime for further help as they desire. Postcoital UTI 04/10/2022 Assessment & Plan (04/11/2022 8:42 AM FX ARTIST): Continue with antibiotics after intercourse Assessment & Plan (04/10/2022 10:45 AM FX ARTIST): -Doing well with macrobid post intercourse. Has not had any issues with UTI since starting this. -Denies side effects. PLAN: -Continue post coital macorbid. -F/U in 1 year or sooner if issues arise. Dysphagia 02/16/2022 Overview (02/16/2022): Added automatically from request for surgery [id number] Assessment & Plan (04/24/2022 7:58 AM FX ARTIST): Dysphagia resolved since EGD with dilation. EGD biopsies negative for EOE. Modified barium swallow unremarkable. -repeat EGD with dilation as needed Assessment & Plan (02/16/2022 8:22 AM CDT): Patient had 2 episodes of dysphagia to water and the juice from an apple since last visit. EGD biopsies negative for EOE. -we will order modified barium swallow to evaluate for oropharyngeal dysphagia -we will consider dilation with next EGD PUD (peptic ulcer disease) 01/17/2022 Overview (01/17/2022): 12/2021 - Dr. Philip No NSAIDs. Repeat EGD in 02/2022 Assessment & Plan (04/24/2022 7:59 AM FX ARTIST): Noted on EGD in December of 2021 - 2.5 cm circumferential clean based ulcer in the antrum near the pyloric channel, biopsies negative for H pylori. Suspect secondary to NSAID use. Repeat EGD March 2022 with healed ulcer. Patient has stopped NSAID use. -avoid NSAIDs -continue PPI daily Assessment & Plan (02/16/2022 8:29 AM CDT): Noted on EGD in December of 2021 - 2.5 cm circumferential clean based ulcer in the antrum near the pyloric channel, biopsies negative for H pylori. Suspect secondary to NSAID use. Patient is still taking ibuprofen every day. -strongly advised patient to stop ibuprofen use; advised patient to discuss with PCP alternatives -avoid all other NSAIDs -patient is currently taking pantoprazole 20 mg p.o. daily, advised patient to take the increased dose of pantoprazole 40 mg p.o. b.i.d. -repeat EGD in 2 months to assess ulcer healing Glaucoma 01/11/2022 Sigmoid thickening 01/05/2022 Assessment & Plan (04/24/2022 7:59 AM FX ARTIST): Abnormal CT scan November of 2021 showing mild segmental thickening of the sigmoid colon without obstruction. Colonoscopy December of 2021 with no thickening noted in the sigmoid colon. Assessment & Plan (02/16/2022 8:22 AM CDT): Abnormal CT scan November of 2021 showing mild segmental thickening of the sigmoid colon without obstruction. Colonoscopy December of 2021 with no thickening noted in the sigmoid colon. Assessment & Plan (01/05/2022 9:26 AM CDT): Abnormal CT scan December 14, 2021 showing mild segmental thickening of the sigmoid colon without obstruction. I personally reviewed and interpreted the patient's last colonoscopy report from April [address] Schmitz notable for internal hemorrhoids, otherwise unremarkable. -schedule colonoscopy to further evaluate thickening of the sigmoid colon -The risks (risks of bleeding, infection, perforation requiring surgery, missed polyps/cancer, dental injury, aspiration pneumonia, anesthesia complications such as drug reaction and cardiopulmonary complications including rare chance of ), benefits, and alternatives of the planned procedure were explained to the patient who understands and consents to having procedure done. Anxiety 12/14/2021 Assessment & Plan (08/17/2024 3:41 AM CDT): Symptoms are stable with Wellbutrin and Cymbalta Assessment & Plan (12/11/2023 10:23 AM CDT): Symptoms are stable with Cymbalta and Wellbutrin. Using trazodone to sleep Assessment & Plan (04/11/2022 8:36 AM FX ARTIST): Stable with Wellbutrin and Cymbalta Assessment & Plan (12/14/2021 5:18 PM CDT): Situational at this time. She declines medication adjustment at this time. Hiatal hernia 12/14/2021 Assessment & Plan (12/14/2021 5:17 PM CDT): History of per patient Will evaluate further on ct abd Neoplasm of uncertain behavior of skin Overview (08/10/2021): Added automatically from request for surgery [id number] Facial skin lesion 08/05/2021 Assessment & Plan (08/05/2021 11:39 PM FX ARTIST): Facial skin lesion on the protestant on the left side. Ingrowing. Will refer to Dermatology for probable excision. DNR (do not resuscitate) 08/04/2021 Overview (08/04/2021): Patient brought POLST form and completed as a DNR at 08/04/2021 visit. She received it in the packet from [facility] as she plans to donate her body for [employer] cadaver use. Assessment & Plan (08/05/2021 11:37 PM FX ARTIST): Patient brought and POLST completed as DNR. I reviewed confirm that these are her wishes. I cosigned long with a Witness and original wrist return to her with a copy in her chart. Carpal tunnel syndrome on left 12/16/2020 Overview (12/16/2020): Added automatically from request for surgery [id number] Moderate episode of recurrent major depressive d isorder 11/04/2020 Assessment & Plan (08/17/2024 3:41 AM CDT): Symptoms are stable with Cymbalta and Wellbutrin. Assessment & Plan (12/11/2023 10:22 AM CDT): Symptoms are stable with Cymbalta and Wellbutrin. Using trazodone to help with sleep Assessment & Plan (04/11/2023 9:56 AM FX ARTIST): Patient currently on Cymbalta and Wellbutrin. States they definitely help with her symptoms but with increased stressors at home definitely having difficulty sleeping. Will add trazodone 50 mg HS 1-3 hours before bedtime. Reviewed risks benefits alternatives side effects and proper use. Symptoms worsen or does not seem to be enough she may call and will consider increasing the dose. Assessment & Plan (09/16/2022 10:35 PM CDT): Stable with Cymbalta and Wellbutrin Assessment & Plan (04/11/2022 8:35 AM FX ARTIST): Continue Wellbutrin and Cymbalta as symptoms are stable Assessment & Plan (08/05/2021 11:36 PM FX ARTIST): Continue Cymbalta and Wellbutrin Assessment & Plan (04/24/2021 6:51 PM FX ARTIST): Continue Wellbutrin and Cymbalta Assessment & Plan (11/04/2020 5:41 PM CDT): Seeing improvement but will increase to Cymbalta 60mg to see a little more effect. New Rx sent. F.u in a few months to reassess or sooner problems/concerns. Vulvar irritation 10/21/2020 Assessment & Plan (09/11/2024 11:38 AM CDT): History of candidal infections in the groin area. Currently being treated with nystatin cream and powder but she is almost out of the cream. Assessment & Plan (03/24/2024 1:39 PM CDT): Patient followed up with Dr. Gates, [employer] and is on clobetasol and states symptoms are tolerable. Continue per his recommendations. Assessment & Plan (01/07/2024 9:19 PM CDT): Has used diflucan and noted improvement, not fully resolved Will try kenalog ointment to the area. If symptoms persist, may need a bx to the area vs estrogen Assessment & Plan (12/11/2023 10:22 AM CDT): This is a significant, separately identifiable problem that was evaluated and managed on the same day as the wellness exam Patient has tinea occurs as well as vulvar irritation. She has been using nystatin cream without much improvement. She does not have any white discoloration it is mostly seen with lichen sclerosis. No lesions or sores. Diflucan 150 mg 1 today 1 on day 3 and 1 on day 5. Stop the nystatin cream. Will transition to Lotrisone cream. Keep the area clean and dry. If symptoms worsen may consider biopsy. Assessment & Plan (11/04/2020 5:41 PM CDT): Await pathology from Dr. Cloud. She is currently on Clobetasol. Will monitor. Assessment & Plan (10/21/2020 6:42 PM CDT): Continue with cotton underwear, washing bid Will refer to yard inspector for further evaluation and treatment Tinea cruris 09/19/2020 Assessment & Plan (12/11/2023 10:19 AM CDT): This is a significant, separately identifiable problem that was evaluated and managed on the same day as the wellness exam Patient has tinea occurs as well as vulvar irritation. She has been using nystatin cream without much improvement. She does not have any white discoloration it is mostly seen with lichen sclerosis. No lesions or sores. Diflucan 150 mg 1 today 1 on day 3 and 1 on day 5. Stop the nystatin cream. Will transition to Lotrisone cream. Keep the area clean and dry. If symptoms worsen may consider biopsy. Assessment & Plan (02/11/2022 11:04 AM CDT): Reminded patient to keep area clean and dry. May even use had cool hair cloth drier after she gets out of the shower. Nystatin as available. Assessment & Plan (04/24/2021 6:50 PM FX ARTIST): Continue nystatin p.r.n. Assessment & Plan (11/24/2020 4:58 PM CDT): She will dc certirizine while taking atarax. She was reminded the atarax can make her drowsy and to use with caution, not to drive for 6h after taking. Advised f/u in 1w if not improving, sooner if worsening. Assessment & Plan (09/19/2020 11:38 PM CDT): Keep area clean and dry. Dry with hair cloth drier on cool and then apply Lotrisone to the area twice a day until resolved. If symptoms worsen or do not resolve she is to contact the office Vertigo 09/04/2020 Assessment & Plan (09/16/2022 10:34 PM CDT): Patient with vertigo. Responds well to meclizine. Refills provided Assessment & Plan (04/01/2022 9:28 PM CDT): Patient with symptoms that seem most consistent with vertigo. Ears are clear. Encouraged Flonase Mucinex and antihistamine. Continue to monitor closely. If she begins to run fever have purulent drainage/rhinorrhea or increase in her poor balance she is to call. Offered meclizine and she declined at this point Assessment & Plan (08/05/2021 11:36 PM FX ARTIST): Continue meclizine p.r.n. Assessment & Plan (09/04/2020 11:01 PM CDT): Persistent sxs that continue to respond promptly to meclizine but not fully resolving.. Will refer to vestibular therapy. If sxs persist will consider imaging brain. OA (osteoarthritis) of finger, left 05/26/2020 Assessment & Plan (05/26/2020 8:46 AM FX ARTIST): Will assess further with RA factor. Discussed ortho referral - she wants to wait and see if it continues. History of total hip replacement, left 9 Assessment & Plan (05/13/2019 8:28 PM FX ARTIST): Continue PT as directed by Ortho Heart murmur, systolic 02/06/2019 Assessment & Plan (12/18/2019 7:57 AM CDT): Had cardiac workup and cleared after ECHO and Lexiscan. Will monitor. Assessment & Plan (02/06/2019 9:46 AM CDT): Will obtain an echo Doppler study to evaluate the murmur. Type 2 diabetes mellitus with hyperlipidemia Assessment & Plan (08/17/2024 3:38 AM CDT): Encouraged patient to follow low fat/low chol diet like the Mediterranean diet. Increase good fats in the diet. Increase exercise. Monitor labs as needed. Continue simvastatin Assessment & Plan (12/11/2023 10:17 AM CDT): Encouraged patient to follow low fat/low chol diet like the Mediterranean diet. Increase good fats in the diet. Increase exercise. Monitor labs as needed. Continue simvastatin Assessment & Plan (04/11/2023 9:56 AM FX ARTIST): Stressed importance of continued A1c control to minimize the termite renewal inspector effects of diabetes. Bring accuchecks to office when instructed to do so. Check A1c about every 3-6 months. Take medication as prescribed. Get annual eye exam. Encouraged STEVEN/Statin if able to tolerate. Encouraged weight control and encouraged diabetic diet and exercise. Encouraged patient to follow low fat/low chol diet like the Mediterranean diet. Increase good fats in the diet. Increase exercise. Monitor labs as needed. A1c is tightly controlled at 6.1. Continue metformin 500 b.i.d.. Continue statin Assessment & Plan (09/16/2022 10:34 PM CDT): Stressed importance of continued A1c control to minimize the shelter effects of diabetes. Bring accuchecks to office when instructed to do so. Check A1c about every 3-6 months. Take medication as prescribed. Get annual eye exam. Encouraged STEVEN/Statin if able to tolerate. Encouraged weight control and encouraged diabetic diet and exercise. Encouraged patient to follow low fat/low chol diet like the Mediterranean diet. Increase good fats in the diet. Increase exercise. Monitor labs as needed. Await labs to determine control. Continue metformin 500 b.i.d. and statin Assessment & Plan (04/23/2022 10:05 AM FX ARTIST): Stressed importance of continued A1c control to minimize the termite renewal inspector effects of diabetes. Bring accuchecks to office when instructed to do so. Check A1c about every 3-6 months. Take medication as prescribed. Get annual eye exam. Encouraged STEVEN/Statin if able to tolerate. Encouraged weight control and encouraged diabetic diet and exercise. Insert hyperlipidemia continue statin DM tightly controlled. Assessment & Plan (04/11/2022 8:34 AM FX ARTIST): Stressed importance of continued A1c control to minimize the termite renewal inspector effects of diabetes. Bring accuchecks to office when instructed to do so. Check A1c about every 3-6 months. Take medication as prescribed. Get annual eye exam. Encouraged STEVEN/Statin if able to tolerate. Encouraged weight control and encouraged diabetic diet and exercise. Continue statin Assessment & Plan (08/05/2021 11:34 PM FX ARTIST): Encouraged patient to follow low fat/low chol diet like the Mediterranean diet. Increase good fats in the diet. Increase exercise. Monitor labs as needed. Continue statin Assessment & Plan (04/24/2021 6:49 PM FX ARTIST): Encouraged patient to follow fat/low chol diet like the Mediterranean diet. Increase good fats in the diet. Increase exercise. Monitor labs as needed. Continue statin Assessment & Plan (10/18/2020 12:32 AM CDT): Encouraged patient to follow fat/low chol diet like the Mediterranean diet. Increase good fats in the diet. Increase exercise. Monitor labs as needed. Continue statin Assessment & Plan (04/01/2020 9:28 AM FX ARTIST): Stressed importance of continued A1c control to minimize the termite renewal inspector effects of diabetes. Bring accuchecks to office when instructed to do so. Check A1c about every 3-6 months. Take medication as prescribed. Get annual eye exam. Encouraged STEVEN/Statin if able to tolerate. Encouraged weight control and encouraged diabetic diet and exercise. Continue statin. Encouraged patient to follow fat/low chol diet like the Mediterranean diet. Increase good fats in the diet. Increase exercise. Monitor labs as needed. [ Assessment & Plan (12/18/2019 7:51 AM CDT): Stressed importance of continued A1c control to minimize the termite renewal inspector effects of diabetes. Bring accuchecks to office when instructed to do so. Check A1c about every 3-6 months. Take medication as prescribed. Get annual eye exam. Encouraged STEVEN/Statin if able to tolerate. Continue Metformin Encouraged weight control and encouraged diabetic diet and exercise. Encouraged patient to continue low fat/low chol diet. Continue exercise. Increase good fats in the diet. Monitor labs as needed. Continue statin Assessment & Plan (05/13/2019 8:27 PM FX ARTIST): Encouraged patient to continue low fat/low chol diet. Continue exercise. Increase good fats in the diet. Monitor labs as needed. Stressed importance of continued A1c control to minimize the termite renewal inspector effects of diabetes. Bring accuchecks to office when instructed to do so. Check A1c about every 3-6 months. Take medication as prescribed. Get annual eye exam. Encouraged STEVEN/Statin if able to tolerate. Encouraged weight control and encouraged diabetic diet and exercise. Assessment & Plan (12/24/2018 9:49 PM CDT): Stressed importance of continued A1c control to minimize the termite renewal inspector effects of diabetes. Bring accuchecks to office when instructed to do so. Check A1c about every 3-6 months. Take medication as prescribed. Get annual eye exam. Encouraged STEVEN/Statin if able to tolerate. Encouraged weight control and encouraged diabetic diet and exercise. Continue metformin Encouraged patient to continue low fat/low chol diet. Continue exercise. Increase good fats in the diet. Monitor labs as needed. Assessment & Plan (09/09/2018 9:08 AM CDT): This is a significant, separately identifiable problem that was evaluated and managed on the same day as the wellness exam Encouraged patient to continue low fat/low chol diet. Continue exercise. Increase good fats in the diet. Monitor labs as needed. Continue statin. Encouraged tight control of co-morbidities. See individual dx for plan. History of Mohs surgery for squamous cell carcin mihir of skin 09/09/2018 Overview (09/09/2018): 06/13/2018 - MOHS by Dr. Rowland Assessment & Plan (12/24/2018 9:50 PM CDT): 05/[address] Duong Assessment & Plan (09/09/2018 9:09 AM CDT): Healed well. Monitor skin exams. Herpes zoster without complications 08/26/2018 Assessment & Plan (09/09/2018 9:09 AM CDT): No current rash. Monitor Squamous cell carcinoma of skin, unspecified Iron deficiency anemia due to chronic blood loss 05/08/2018 Assessment & Plan (04/11/2023 9:55 AM FX ARTIST): Continue with iron supplementation. Due to check labs Assessment & Plan (04/01/2020 9:28 AM FX ARTIST): Appears to have stabilized. May hold the iron supplement Assessment & Plan (12/18/2019 7:51 AM CDT): Recheck CBC. She is still supplementing. Assessment & Plan (12/24/2018 9:49 PM CDT): Continue to supplement. Monitor labs Assessment & Plan (09/09/2018 9:09 AM CDT): This is a significant, separately identifiable problem that was evaluated and managed on the same day as the wellness exam Check labs for stablity Gastroesophageal reflux disease 05/08/2018 Assessment & Plan (12/11/2023 10:17 AM CDT): Continue PPI p.r.n. Stable with PPI p.r.n. Assessment & Plan (04/11/2023 9:56 AM FX ARTIST): Continue PPI p.r.n. Assessment & Plan (04/24/2022 8:04 AM FX ARTIST): Chronic, taking pantoprazole daily -PPI daily -RECOMMENDATIONS given include: anti-reflux maneuvers, Avoid acidic foods like oranges and tomatoes., avoidance of spicy foods, avoid eating 3-4 hours before bed, elevation of the head of the bed, and weight loss Assessment & Plan (04/23/2022 10:06 AM FX ARTIST): Continue PPI and Pepcid p.r.n.. Has EGD and colonoscopy scheduled [address] Philip Assessment & Plan (04/11/2022 8:34 AM FX ARTIST): Continue PPI p.r.n. Assessment & Plan (02/16/2022 8:23 AM CDT): Chronic, taking pantoprazole 20 mg p.o. daily -increase pantoprazole 40 mg p.o. b.i.d. for ulcer healing, then we will decrease back to once a day -RECOMMENDATIONS given include: anti-reflux maneuvers, Avoid acidic foods like oranges and tomatoes., avoidance of spicy foods, avoid eating 3-4 hours before bed, elevation of the head of the bed, and weight loss Assessment & Plan (01/05/2022 9:21 AM CDT): Chronic takes PPI daily. Uses Tums p.r.n.. -continue PPI daily, start Pepcid OTC p.r.n. -RECOMMENDATIONS given include: anti-reflux maneuvers, Avoid acidic foods like oranges and tomatoes., avoidance of spicy foods, avoid eating 3-4 hours before bed, elevation of the head of the bed, and weight loss Assessment & Plan (12/14/2021 5:17 PM CDT): She will change prilosec to protonix. Advised cutting back on tobacco, caffeine, acidic/spicy foods. Assessment & Plan (08/05/2021 11:35 PM FX ARTIST): Continue PPI Assessment & Plan (10/18/2020 12:31 AM CDT): Continue PPI Assessment & Plan (04/01/2020 9:27 AM FX ARTIST): Continue PPI Assessment & Plan (12/18/2019 7:50 AM CDT): Stable with PPI and prn Reglan Assessment & Plan (02/26/2019 9:30 AM CDT): Symptoms still seem most consistent with reflux. Change the Protonix to before dinner and and add Pepcid in am which she can get [id number]. Decrease her coffee in the morning. Continue to monitor closely and if she has increased symptoms, hematemesis, or changes in her stool she is to call sooner. If it continues to persist may need to refer back to GI to scope. Assessment & Plan (12/24/2018 9:52 PM CDT): Stable with PPI Sciatica of left side 12/07/2017 Primary osteoarthritis of left knee 11/09/2017 Assessment & Plan (12/24/2018 9:54 PM CDT): NSAIDs prn Assessment & Plan (09/09/2018 9:07 AM CDT): This is a significant, separately identifiable problem that was evaluated and managed on the same day as the wellness exam Using Pain Magagement topicals. Check xrays as has been a few years. Will probably benefit from followup with Ortho to determine next step with her OA/sxs. Primary osteoarthritis of right knee 11/09/2017 Assessment & Plan (12/24/2018 9:53 PM CDT): NSAIDs prn Assessment & Plan (09/09/2018 9:07 AM CDT): This is a significant, separately identifiable problem that was evaluated and managed on the same day as the wellness exam Using Pain Magagement topicals. Check xrays as has been a few years. Will probably benefit from followup with Ortho to determine next step with her OA/sxs. Hypertension associated with diabetes 11/07/2017 Assessment & Plan (08/17/2024 3:40 AM CDT): Bp is stable/in acceptable range for any co-morbidities. Encouraged to limit sodium intake and exercise for weight control. Continue losartan 50 Assessment & Plan (03/24/2024 1:39 PM CDT): Bp is stable/in acceptable range for any co-morbidities. Encouraged to limit sodium intake and exercise for weight control. Stressed importance of continued A1c control to minimize the shelter effects of diabetes. Bring accuchecks to office when instructed to do so. Check A1c about every 3-6 months. Take medication as prescribed. Get annual eye exam. Encouraged STEVEN/Statin if able to tolerate. Encouraged weight control and encouraged diabetic diet and exercise. Continue Metofrmin 500mg 1/2 tab bid and losartan Assessment & Plan (12/11/2023 10:17 AM CDT): Bp is stable/in acceptable range for any co-morbidities. Encouraged to limit sodium intake and exercise for weight control. Stressed importance of continued A1c control to minimize the shelter effects of diabetes. Bring accuchecks to office when instructed to do so. Check A1c about every 3-6 months. Take medication as prescribed. Get annual eye exam. Encouraged STEVEN/Statin if able to tolerate. Encouraged weight control and encouraged diabetic diet and exercise. Continue Losartan 50 Diabetes is well controlled with the last A1c 6.1. Continue metformin 500 b.i.d. Assessment & Plan (04/11/2023 9:56 AM FX ARTIST): Bp is stable/in acceptable range for any co-morbidities. Encouraged to limit sodium intake and exercise for weight control. Stable with losartan 50 Assessment & Plan (09/16/2022 10:34 PM CDT): Bp is stable/in acceptable range for any co-morbidities. Encouraged to limit sodium intake and exercise for weight control. Continue losartan Assessment & Plan (04/23/2022 10:04 AM FX ARTIST): Bp is stable/in acceptable range for any co-morbidities. Encouraged to limit sodium intake and exercise for weight control. Continue losartan Assessment & Plan (04/11/2022 8:34 AM FX ARTIST): Bp is stable/in acceptable range for any co-morbidities. Encouraged to limit sodium intake and exercise for weight control. Continue losartan Assessment & Plan (08/05/2021 11:34 PM FX ARTIST): Bp is stable/in acceptable range for any co-morbidities. Encouraged to limit sodium intake and exercise for weight control. Continue losartan Assessment & Plan (04/24/2021 6:49 PM FX ARTIST): Bp is stable/in acceptable range for any co-morbidities. Encouraged to limit sodium intake and exercise for weight control. Continue losartan Assessment & Plan (10/18/2020 12:31 AM CDT): Bp is stable/in acceptable range for any co-morbidities. Encouraged to limit sodium intake and exercise for weight control. Continue losartan Assessment & Plan (04/01/2020 9:27 AM FX ARTIST): Bp is stable/in acceptable range for any co-morbidities. Encouraged to limit sodium intake and exercise for weight control. Continue losartan Assessment & Plan (12/18/2019 7:49 AM CDT): Bp is stable/in acceptable range for any co-morbidities. Encouraged to limit sodium intake and exercise for weight control. Stressed importance of continued A1c control to minimize the termite renewal inspector effects of diabetes. Bring accuchecks to office when instructed to do so. Check A1c about every 3-6 months. Take medication as prescribed. Get annual eye exam. Encouraged STEVEN/Statin if able to tolerate. Encouraged weight control and encouraged diabetic diet and exercise. Assessment & Plan (05/13/2019 8:22 PM FX ARTIST): Bp is stable/in acceptable range for any co-morbidities. Encouraged to limit sodium intake and exercise for weight control. Continue the Losartan 50mg Assessment & Plan (12/24/2018 9:47 PM CDT): Bp is stable/in acceptable range for any co-morbidities. Encouraged to limit sodium intake and exercise for weight control. Continue Losartan Assessment & Plan (09/09/2018 9:04 AM CDT): This is a significant, separately identifiable problem that was evaluated and managed on the same day as the wellness exam Bp is stable/in acceptable range for any co-morbidities. Encouraged to limit sodium intake and exercise for weight control. Encouraged tight control of co-morbidities. See individual dx for plan. History of meningioma of the brain 11/07/2017 Overview (10/21/2020): no current epilepsy/seizures Assessment & Plan (02/06/2019 9:45 AM CDT): Resected at [facility] November 2010. Assessment & Plan (12/24/2018 9:49 PM CDT): No change Assessment & Plan (09/09/2018 9:09 AM CDT): No change Osteoporosis without current pathological fractu re 11/07/2017 Assessment & Plan (08/17/2024 3:41 AM CDT): Continue Fosamax of this and calcium. Managed by Dr. Gregg Galvin Assessment & Plan (12/11/2023 10:02 AM CDT): Last DEXA was done August of 2022. Continue Fosamax and Evista as well as calcium supplementation and exercise. Dr. Wolfe, envelope cutter manages Assessment & Plan (04/11/2023 9:57 AM FX ARTIST): Osteoporosis is managed by Dr. Milan her envelope cutter. Continue Fosamax Evista calcium and vitamin-D Assessment & Plan (09/16/2022 10:36 PM CDT): Continue calcium vitamin-D and exercise. Patient is on Fosamax and Evista. Due for DEXA Assessment & Plan (04/11/2022 8:35 AM FX ARTIST): Managed by Dr. Wolfe. Continue Fosamax Evista and calcium Type 2 diabetes mellitus wit h diabetic polyneuropathy, without long-term current use of insulin 11/05/2017 Assessment & Plan (08/17/2024 3:41 AM CDT): Stressed importance of continued A1c control to minimize the shelter effects of diabetes. Bring accuchecks to office when instructed to do so. Check A1c about every 3-6 months. Take medication as prescribed. Get annual eye exam. Encouraged STEVEN/Statin if able to t
--- OUTSIDE RECORDS SUMMARY | 2024-10-09 14:22 | XMS_ITS | Referral Summary ---
Author Organization [facility] [address] [facility] Address [address] [place] [address] Care Team Providers Care It Architecture Analyst Name Role Phone Arely Livingston Primary Care Provider + [phone] Arely Livingston Unavailable [phone] Sultan Lai Valdes MD Unavailable [phone] Sultan Lai Valdes MD Unavailable [phone] Kristofer Watters MD Unavailable [phone] Encounters Date Type Department Care Team Description 09/15/[address] [place] [phone] Arely Livingston PA Medical Question/Miscellaneous 09/11/2024 10:00 AM CDT Office Visit [address] [place] [phone] Arely Livingston PA Skin lesion of right lower extremity (Primary Dx); Vulvar irritation; BMI 27.0-27.9,adult 08/06/[address] [place] [phone] Arely Livingston PA Medical Question/Miscellaneous 08/06/2024 9:30 AM CDT Office Visit [address] [place] [phone] Arely Livingston PA Medicare annual wellness visit, subsequent (Primary Dx); Hyperkalemia; Vulvar atrophy; Primary insomnia; Cigarette smoker; Anxiety; Moderate episode of recurrent major depressive disorder (HCC); Age-related osteoporosis without current pathological fracture; Type 2 diabetes mellitus with diabetic polyneuropathy, without long-term current use of insulin (HCC); Hypertension associated with diabetes (HCC); Type 2 diabetes mellitus with hyperlipidemia (HCC); BMI 27.0-27.9,adult 08/03/2024 Results Follow-Up [facility] Family Medicine [address] [facility] [address] [place] [address] Arely Livingston PA from Last 3 Months Allergies Active Allergy Reactions Criticality Noted Date Comments Adhesive Rash Medium 09/16/2021 Lisinopril Hives Medium 09/09/2018 hives Other Blisters High 01/05/2022 Pt reports allergy to dish soap Medications omega-3 fatty acids 1,000 mg capsule 1,000 mg 2 (two) times a day Active vitamins A,C,E-zinc-co pper (ICAPS) 14,320-226-20 0 [id number] capsule 2 (two) times a day Active [...] notices new symptoms will send her to frame expander. She is in agreement with the plan Primary insomnia 04/11/2023 Assessment & Plan (08/17/2024 3:41 AM CDT): Continue with trazodone Assessment & Plan (12/11/2023 10:23 AM CDT): Doing well with trazodone Assessment & Plan (04/11/2023 10:08 AM MANAGER VIDEO GAMES): This is a significant, separately identifiable problem [...] Reviewed options for assistance with cessation. Reviewed detention sequela associated with smoking. Pt declines assistance at this time but may contact the office at anytime for further help as they desire. Assessment & Plan (03/24/2024 1:38 PM CDT): Encouraged smoking cessation. Discussed 3 minutes. Reviewed options for assistance with cessation. Reviewed detention sequela associated with smoking. Pt declines assistance at this time but may contact the office at anytime for further help as they desire. Assessment & Plan (12/11/2023 10:23 AM CDT): Encouraged smoking cessation. Discussed 3 minutes. Reviewed options for assistance with cessation. Reviewed senior medical technologist sequela associated with smoking. Pt declines assistance at this time but may contact the office at anytime for further help as they desire. Assessment & Plan (08/17/2023 9:30 PM CDT): Encouraged smoking cessation. Discussed 3 minutes. Reviewed options for assistance with cessation. Reviewed detention sequela associated with smoking. Pt declines assistance at this time but may contact the office at anytime for further help as they desire. Assessment & Plan (04/11/2023 9:57 AM MANAGER VIDEO GAMES): Encouraged smoking cessation. Discussed 3 minutes. Reviewed options for assistance with cessation. Reviewed senior medical technologist sequela associated with smoking. Pt declines assistance at this time but may contact the office at anytime for further help as they desire. She is not interested in further assistance. She is already on Wellbutrin XL 300 Assessment & Plan (12/24/2022 9:21 PM CDT): Encouraged smoking cessation. Discussed 3 minutes. Reviewed options for assistance with cessation. Reviewed senior medical technologist sequela associated with smoking. Pt declines assistance at this time but may contact the office at anytime for further help as they desire. Postcoital UTI 04/10/2022 Assessment & Plan (04/11/2022 8:42 AM MANAGER VIDEO GAMES): Continue with antibiotics after intercourse Assessment & Plan (04/10/2022 10:45 AM MANAGER VIDEO GAMES): -Doing well with macrobid post intercourse. Has not had any issues with UTI since starting this. -Denies side effects. PLAN: -Continue post coital macorbid. -F/U in 1 year or sooner if issues arise. Dysphagia 02/16/2022 Overview (02/16/2022): Added automatically from request for surgery [id number] Assessment & Plan (04/24/2022 7:58 AM MANAGER VIDEO GAMES): Dysphagia resolved since EGD with dilation. EGD [...] 02/2022 Assessment & Plan (04/24/2022 7:59 AM MANAGER VIDEO GAMES): Noted on EGD in December of 2021 [...] 01/05/2022 Assessment & Plan (04/24/2022 7:59 AM MANAGER VIDEO GAMES): Abnormal CT scan November of 2021 showing [...] sleep Assessment & Plan (04/11/2022 8:36 AM MANAGER VIDEO GAMES): Stable with Wellbutrin and Cymbalta Assessment & Plan (12/14/2021 5:18 PM CDT): Situational at this time. She declines medication adjustment at this time. Hiatal hernia 12/14/2021 Assessment & Plan (12/14/2021 5:17 PM CDT): History of per patient Will evaluate further on ct abd Neoplasm of uncertain behavior of skin 2 Overview (08/10/2021): Added automatically from request for surgery [id number] Facial skin lesion 08/05/2021 Assessment & Plan (08/05/2021 11:39 PM MANAGER VIDEO GAMES): Facial skin lesion on the mormonism on the left side. Ingrowing. Will refer to Dermatology for probable excision. DNR (do not resuscitate) 08/04/2021 Overview (08/04/2021): Patient brought POLST form and completed as a DNR at 08/04/2021 visit. She received it in the packet from [facility] as she plans to donate her body for [employer] cadaver use. Assessment & Plan (08/05/2021 11:37 PM MANAGER VIDEO GAMES): Patient brought and POLST completed as DNR. I reviewed confirm that these are her wishes. I cosigned long with a Witness and original wrist return to her with a copy in her chart. Carpal tunnel syndrome on left 12/16/2020 Overview (12/16/2020): Added automatically from request for surgery [id number] Moderate episode of recurrent major depressive d isorder 11/04/2020 Assessment & Plan (08/17/2024 3:41 AM CDT): Symptoms are stable with Cymbalta and Wellbutrin. Assessment & Plan (12/11/2023 10:22 AM CDT): Symptoms are stable with Cymbalta and Wellbutrin. Using trazodone to help with sleep Assessment & Plan (04/11/2023 9:56 AM MANAGER VIDEO GAMES): Patient currently on Cymbalta and Wellbutrin. States [...] Wellbutrin Assessment & Plan (04/11/2022 8:35 AM MANAGER VIDEO GAMES): Continue Wellbutrin and Cymbalta as symptoms are stable Assessment & Plan (08/05/2021 11:36 PM MANAGER VIDEO GAMES): Continue Cymbalta and Wellbutrin Assessment & Plan (04/24/2021 6:51 PM MANAGER VIDEO GAMES): Continue Wellbutrin and Cymbalta Assessment & Plan [...] CDT): Patient followed up with Dr. Gates, ELECTRONIC ORGAN TECHNICIAN and is on clobetasol and states symptoms [...] cotton underwear, washing bid Will refer to billing collections specialist for further evaluation and treatment Tinea cruris [...] dry. May even use had cool hair platen drier operator after she gets out of the shower. Nystatin as available. Assessment & Plan (04/24/2021 6:50 PM MANAGER VIDEO GAMES): Continue nystatin p.r.n. Assessment & Plan (11/24/2020 4:58 PM CDT): She will dc certirizine while taking atarax. She was reminded the atarax can make her drowsy and to use with caution, not to drive for 6h after taking. Advised f/u in 1w if not improving, sooner if worsening. Assessment & Plan (09/19/2020 11:38 PM CDT): Keep area clean and dry. Dry with hair platen drier operator on cool and then apply Lotrisone to [...] point Assessment & Plan (08/05/2021 11:36 PM MANAGER VIDEO GAMES): Continue meclizine p.r.n. Assessment & Plan (09/04/2020 11:01 PM CDT): Persistent sxs that continue to respond promptly to meclizine but not fully resolving.. Will refer to vestibular therapy. If sxs persist will consider imaging brain. OA (osteoarthritis) of finger, left 05/26/2020 Assessment & Plan (05/26/2020 8:46 AM MANAGER VIDEO GAMES): Will assess further with RA factor. Discussed ortho referral - she wants to wait and see if it continues. History of total hip replacement, left 9 Assessment & Plan (05/13/2019 8:28 PM MANAGER VIDEO GAMES): Continue PT as directed by Ortho Heart [...] simvastatin Assessment & Plan (04/11/2023 9:56 AM MANAGER VIDEO GAMES): Stressed importance of continued A1c control to minimize the senior medical technologist effects of diabetes. Bring accuchecks to office [...] of continued A1c control to minimize the senior medical technologist effects of diabetes. Bring accuchecks to office [...] statin Assessment & Plan (04/23/2022 10:05 AM MANAGER VIDEO GAMES): Stressed importance of continued A1c control to minimize the detention effects of diabetes. Bring accuchecks to office when instructed to do so. Check A1c about every 3-6 months. Take medication as prescribed. Get annual eye exam. Encouraged STEVEN/Statin if able to tolerate. Encouraged weight control and encouraged diabetic diet and exercise. Insert hyperlipidemia continue statin DM tightly controlled. Assessment & Plan (04/11/2022 8:34 AM MANAGER VIDEO GAMES): Stressed importance of continued A1c control to minimize the senior medical technologist effects of diabetes. Bring accuchecks to office when instructed to do so. Check A1c about every 3-6 months. Take medication as prescribed. Get annual eye exam. Encouraged STEVEN/Statin if able to tolerate. Encouraged weight control and encouraged diabetic diet and exercise. Continue statin Assessment & Plan (08/05/2021 11:34 PM MANAGER VIDEO GAMES): Encouraged patient to follow low fat/low chol diet like the Mediterranean diet. Increase good fats in the diet. Increase exercise. Monitor labs as needed. Continue statin Assessment & Plan (04/24/2021 6:49 PM MANAGER VIDEO GAMES): Encouraged patient to follow fat/low chol diet like the Mediterranean diet. Increase good fats in the diet. Increase exercise. Monitor labs as needed. Continue statin Assessment & Plan (10/18/2020 12:32 AM CDT): Encouraged patient to follow fat/low chol diet like the Mediterranean diet. Increase good fats in the diet. Increase exercise. Monitor labs as needed. Continue statin Assessment & Plan (04/01/2020 9:28 AM MANAGER VIDEO GAMES): Stressed importance of continued A1c control to minimize the senior medical technologist effects of diabetes. Bring accuchecks to office [...] of continued A1c control to minimize the detention effects of diabetes. Bring accuchecks to office when instructed to do so. Check A1c about every 3-6 months. Take medication as prescribed. Get annual eye exam. Encouraged SETVEN/Statin if able to tolerate. Continue Metformin Encouraged weight control and encouraged diabetic diet and exercise. Encouraged patient to continue low fat/low chol diet. Continue exercise. Increase good fats in the diet. Monitor labs as needed. Continue statin Assessment & Plan (05/13/2019 8:27 PM MANAGER VIDEO GAMES): Encouraged patient to continue low fat/low chol diet. Continue exercise. Increase good fats in the diet. Monitor labs as needed. Stressed importance of continued A1c control to minimize the senior medical technologist effects of diabetes. Bring accuchecks to office when instructed to do so. Check A1c about every 3-6 months. Take medication as prescribed. Get annual eye exam. Encouraged STEVEN/Statin if able to tolerate. Encouraged weight control and encouraged diabetic diet and exercise. Assessment & Plan (12/24/2018 9:49 PM CDT): Stressed importance of continued A1c control to minimize the senior medical technologist effects of diabetes. Bring accuchecks to office [...] 05/08/2018 Assessment & Plan (04/11/2023 9:55 AM MANAGER VIDEO GAMES): Continue with iron supplementation. Due to check labs Assessment & Plan (04/01/2020 9:28 AM MANAGER VIDEO GAMES): Appears to have stabilized. May hold the [...] p.r.n. Assessment & Plan (04/11/2023 9:56 AM MANAGER VIDEO GAMES): Continue PPI p.r.n. Assessment & Plan (04/24/2022 8:04 AM MANAGER VIDEO GAMES): Chronic, taking pantoprazole daily -PPI daily -RECOMMENDATIONS given include: anti-reflux maneuvers, Avoid acidic foods like oranges and tomatoes., avoidance of spicy foods, avoid eating 3-4 hours before bed, elevation of the head of the bed, and weight loss Assessment & Plan (04/23/2022 10:06 AM MANAGER VIDEO GAMES): Continue PPI and Pepcid p.r.n.. Has EGD and colonoscopy scheduled [address] Philip Assessment & Plan (04/11/2022 8:34 AM MANAGER VIDEO GAMES): Continue PPI p.r.n. Assessment & Plan (02/16/2022 [...] foods. Assessment & Plan (08/05/2021 11:35 PM MANAGER VIDEO GAMES): Continue PPI Assessment & Plan (10/18/2020 12:31 AM CDT): Continue PPI Assessment & Plan (04/01/2020 9:27 AM MANAGER VIDEO GAMES): Continue PPI Assessment & Plan (12/18/2019 7:50 AM CDT): Stable with PPI and prn Reglan Assessment & Plan (02/26/2019 9:30 AM CDT): Symptoms still seem most consistent with reflux. Change the Protonix to before dinner and and add Pepcid in am which she can get [id number]. Decrease her coffee in the morning. Continue [...] of continued A1c control to minimize the senior medical technologist effects of diabetes. Bring accuchecks to office [...] of continued A1c control to minimize the senior medical technologist effects of diabetes. Bring accuchecks to office when instructed to do so. Check A1c about every 3-6 months. Take medication as prescribed. Get annual eye exam. Encouraged STEVEN/Statin if able to tolerate. Encouraged weight control and encouraged diabetic diet and exercise. Continue Losartan 50 Diabetes is well controlled with the last A1c 6.1. Continue metformin 500 b.i.d. Assessment & Plan (04/11/2023 9:56 AM MANAGER VIDEO GAMES): Bp is stable/in acceptable range for any co-morbidities. Encouraged to limit sodium intake and exercise for weight control. Stable with losartan 50 Assessment & Plan (09/16/2022 10:34 PM CDT): Bp is stable/in acceptable range for any co-morbidities. Encouraged to limit sodium intake and exercise for weight control. Continue losartan Assessment & Plan (04/23/2022 10:04 AM MANAGER VIDEO GAMES): Bp is stable/in acceptable range for any co-morbidities. Encouraged to limit sodium intake and exercise for weight control. Continue losartan Assessment & Plan (04/11/2022 8:34 AM MANAGER VIDEO GAMES): Bp is stable/in acceptable range for any co-morbidities. Encouraged to limit sodium intake and exercise for weight control. Continue losartan Assessment & Plan (08/05/2021 11:34 PM MANAGER VIDEO GAMES): Bp is stable/in acceptable range for any co-morbidities. Encouraged to limit sodium intake and exercise for weight control. Continue losartan Assessment & Plan (04/24/2021 6:49 PM MANAGER VIDEO GAMES): Bp is stable/in acceptable range for any co-morbidities. Encouraged to limit sodium intake and exercise for weight control. Continue losartan Assessment & Plan (10/18/2020 12:31 AM CDT): Bp is stable/in acceptable range for any co-morbidities. Encouraged to limit sodium intake and exercise for weight control. Continue losartan Assessment & Plan (04/01/2020 9:27 AM MANAGER VIDEO GAMES): Bp is stable/in acceptable range for any co-morbidities. Encouraged to limit sodium intake and exercise for weight control. Continue losartan Assessment & Plan (12/18/2019 7:49 AM CDT): Bp is stable/in acceptable range for any co-morbidities. Encouraged to limit sodium intake and exercise for weight control. Stressed importance of continued A1c control to minimize the senior medical technologist effects of diabetes. Bring accuchecks to office when instructed to do so. Check A1c about every 3-6 months. Take medication as prescribed. Get annual eye exam. Encouraged STEVEN/Statin if able to tolerate. Encouraged weight control and encouraged diabetic diet and exercise. Assessment & Plan (05/13/2019 8:22 PM MANAGER VIDEO GAMES): Bp is stable/in acceptable range for any [...] epilepsy/seizures Assessment & Plan (02/06/2019 9:45 AM CDT):Formatting of this note might be different from t [id number]|2024-10-09 14:22:00|2024-10-09 14:22:00|XMS_ITS|BKG DAEMON|External Medical Summaries|[id number]|" Encounter Summary Created on: October 09, 2024 Lizett Mixon : 1945 Sex: Female Author Organization [facility] Address [address] [place] [address] Care Team Providers Care It Architecture Analyst Name Role Phone Arely Livingston Primary Care Provider [phone] Arely Livingston Unavailable [phone] Sultan Lai Valdes MD Unavailable [phone] Sultan Lai Valdes MD Unavailable [phone] Kristofer Watters MD Unavailable [phone] Reason for Visit * Reason Onset Date Comments Medical Question/Miscellaneous 09/15/2024 Encounter Details Date Type Department Care Team (Late st Contact Info) Description 09/15/2024 Telephone [facility] Family Medicine [address] [facility] [address] [place] [address] Arely Livingston PA [address] [place] [address] Medical Question/Miscellaneous Social History Tobacco Use Types Packs/Day Years Used Date Smoking Tobacco: Every Day Cigarettes 0.2 50 Smokeless Tobacco: Never Comments:Pt currently has a prescription to help quit. Alcohol Use Standard Drinks/Week Comments Yes 0 (1 standard drink = 0.6 oz pur e alcohol) Socially AUDIT-C Answer Date Recorded Q1: How often do you have a drink containing alcohol? Never 09/11/2024 Q2: How many drinks containi ng alcohol do you have on a typical day when you are drinking? Patient does not drink Q3: How often do you have si x or more drinks on one occasion? Never 09/11/2024 PHQ-2 Answer Date Recorded PHQ-2 Total Score (If total score is 3 or more points, staff should administer the PHQ-9) 0 09/11/2024 Comments No Sex and Gender Information Value Date Recorded Sex Assigned at Not on file Legal Sex Female 2:35 AM MANAGER VIDEO GAMES Gender Identity Not on file Sexual Orientation Not on file Occupation Industry Job Start Date Job End Date Retire Not on file Not on file Not on file documented as of this encounter Miscellaneous Notes * Telephone Encounter - Arely Livingston PA - 09/15/2024 3:19 PM CDT noted * Telephone Encounter - Kadi Treadwell - 09/15/2024 1:40 PM CDT Medical Question/Miscellaneous Callerâ€™s Concern: Patient wants to let JESSENIA Livingston to know that she is using the cremes mixed together as recommended and it is working great, Does message need to be routed? Yes-FYI Only documented in this encounter Plan of Treatment Not on file documented as of this encounter Visit Diagnoses Not on filedocumented in this encounter Care Teams It Architecture Analyst Relationship Specialty Start Date End Date Arely Livingston PA [address] [place] [address] PCP - General 02/06/19 Arely Livingston PA [address] [place] [address] Internal Medicine 02/06/19 Sultan Lai Valdes MD [address] [address] Gas Meter Prover Cardiovascular Disease 01/31/19 Sultan Lai Valdes MD [address] [address] Consulting Physician Cardiovascular Disease 02/07/19 Kristofer Watters MD [address] [address] Consulting Physician Plastic Surgery 08/16/21 documented as of this encounter "
--- OUTSIDE RECORDS SUMMARY | 2024-10-09 14:22 | XMS_ITS | Encounter Summary ---
Author Organization [facility] Address [address] [place] [address] Care Team Providers Care Sdv Pilot/Navigator/Dds Operator Name Role Phone Roel Sharma MD Primary Care Provider [phone] Encounter Details Date Type Department Care Team (Latest Contact Info) Description 04/02/2018 Abstract [facility] , Dominique Hawley MD Social History Tobacco Use Types Packs/Day Years Used Date Smoking Tobacco: Never Assessed Comments Unknown Sex and Gender Information Value Date Recorded Sex Assigned at Not on file Legal Sex Female 11:35 PM CDT Gender Identity Not on file Sexual Orientation Not on file documented as of this encounter Plan of Treatment Not on file documented as of this encounter Visit Diagnoses Not on filedocumented in this encounter Care Teams Sdv Pilot/Navigator/Dds Operator Relationship Specialty Start Date End Date Roel Sharma MD PCP - General 06/19/12 documented as of this encounter
--- OUTSIDE RECORDS SUMMARY | 2024-10-09 14:22 | XMS_ITS | Clinical Summary ---
Author Organization [facility] Address [address] [place] [address] Care Team Providers Care Linux Admin Engineer Name Role Phone Roel Sharma MD Primary Care Provider [phone] Social History Tobacco Use Types Packs/Day Years Used Date Smoking Tobacco: Never Assessed Comments Unknown Sex and Gender Information Value Date Recorded Sex Assigned at Not on file Legal Sex Female 11:35 PM CDT Gender Identity Not on file Sexual Orientation Not on file Last Filed Vital Signs Vital Sign Reading Time Taken Comments Blood Pressure 116/76 07/10/2012 2:38 PM ASIAN ART CURATOR Pulse 76 07/10/2012 2:38 PM ASIAN ART CURATOR Temperature - - Respiratory Rate - - Oxygen Saturation - - Inhaled Oxygen Concentration - - Weight 70.8 kg (156 lb) 07/10/2012 2:38 PM ASIAN ART CURATOR Height 157.5 cm (5' 2 ) 07/10/2012 2:38 PM ASIAN ART CURATOR Body Mass Index 28.53 07/10/2012 2:38 PM ASIAN ART CURATOR Plan of Treatment Health Maintenance Due Date Last Done Comments COVID-19 Vaccine (2023-2 5 season) 2024 04/02/2023, 09/02/2021, 08/02/2020 DTaP, Tdap and Td Vaccines ( 2 - Td or Tdap) 04/03/2026 04/03/2016 Pneumococcal Vaccine: 50+ Years Completed 05/13/2019, 05/08/2018 Zoster Vaccines Completed 2021, 11/23/2020, 09/21/2012 Dexa Scan (General) Completed 10/24/2022 RSV Immunization or 60+ Years Completed 04/02/2023 Meningococcal B Vaccine Aged Out No l onger eligible based on patient's age to complete this topic Meningococcal Vaccine Aged Out No igor yesica eligible based on patient's age to complete this topic RSV Immunizations Under 20 Months Aged Out No longer eligible b ased on patient's age to complete this topic Care Teams Linux Admin Engineer Relationship Specialty Start Date End Date Roel Sharma MD PCP - General 06/19/12
== END 2024-10-09 14:18 | disposition home or self-care (01) ==
LOC: ANHIMG 14:19
PROVIDERS: PCP Physician Assistant; Visit Provider Obstetrics & Gynecology
DX: Z12.31 Encounter for screening mammogram for malignant neoplasm of breast (principal)
CPT/HCPCS: 77063; 77067